=== PATIENT | female | born 1945 | race Caucasian/White ===

== ENCOUNTER 2017-10-05 00:46 | Inpatient (IN) | payer MEDICARE, OTHER ==
[~2017-10-05] VITALS: Ht 165.1 cm; Wt 72.6 kg
[~2017-10-05 00:46] MED LIST: [UNRECOGNIZED DRUG - CODE] PO
[2017-10-05 01:00] VITALS: BP 119/88
--- NOTE | 2017-10-05 01:00 | NUR ---
GPS ADMISSION NOTE, RECEIVED PATIENT FROM [facility] HOME. PATIENT ARRIVED ON THIS UNIT AT 0100 VIA STRETCHER WITH 2 EMT ESCORTS. PATIENT ADMITTED ON A 5150 HOLD FOR DTS. PER HOLD OFFICERS RESPONDED TO CALL AT A HOTEL. ONCE THEIR OFFICERS FOUND BOTH PATIENT AND FEELING SUICIDAL AND THINKING ABOUT JUMPING TO THEIR DEATHS. PATIENT UNABLE TO CONTRACT FOR SAFETY AT THIS TIME. THE 5150 WAS REVIEWED AND THE DOCUMENTATION IN THE 5150 HOLD APPEARS TO REFLECT THE PRESENTATION OF THE PATIENT. UPON FACE TO FACE ASSESSMENT PATIENT IS CURRENTLY LYING IN BED AWAKE, HAS NO S/S OR COMPLAINTS OF PAIN. PATIENT IS DISPLAYING NO S/S OF APPARENT DISTRESS. PATIENT BREATHING IS UNLABORED WITH EQUAL RISE AND FALL OF THE CHEST. PATIENT IS ALERT AND ORIENTATED X 2 ON ROOM AIR. PATIENT ASSISTED WITH TURING AND REPOSITIONING Q2HR AND PRN FOR COMFORT AND CIRCULATION. PATIENT HAS NO NEEDS AT THIS TIME. PATIENT IS NOTED TO BEING CONFUSED AT TIMES, ANXIOUS, DISHEVELED, DISORGANIZED, COOPERATIVE, AND NEEDS REDIRECTION. PATIENT STILL HAS THOUGHTS OF JUMPING OFF BUILDINGS AT THIS TIME. PATIENT IS UNDER THE PSYCHIATRIC CARE OF DR. DHILLON AND THE MEDICAL CARE OF DR VILLAREAL. PATIENT BELONGINGS WERE INVENTORIED AND CHECKED FOR CONTRABAND. ALL CONTRABAND REMOVED AND STORED IN PATIENT HALLWAY LOCKER. PATIENT ADVANCED DIRECTIVES PREFERENCE, IMMUNIZATIONS QUESTIONER, NECESSARY PAPERWORK, AND SKIN ASSESSMENT COMPLETED. PATIENT ORIENTATED TO ROOM, FLOOR, AND STAFF WITH ALL QUESTIONS ANSWERED. PATIENT EDUCATED ON THE USE OF THE CALL PERRY. PATIENT BED SIDE RAILS ARE UP X 2 FOR SAFETY. PATIENT BED IS LOCKED, LOW AND I WILL CONTINUE TO MONITOR THIS PATIENT Q 15 MIN WITH THE HELP OF STAFF TO MAINTAIN SAFETY.
[2017-10-05] MEDS ORDERED: ACETAMINOPHEN 325 MG TABLET PO PRN (01:30)
[2017-10-05] MEDS ORDERED: MAG HYDROX/AL HYDROX/SIMETH 30 ML UDC PO PRN (01:30)
[2017-10-05] MEDS ORDERED: MAGNESIUM HYDROXIDE 30 ML UDC PO PRN (01:30)
[2017-10-05] MEDS ORDERED: clonazePAM 0.5 MG TABLET ONE (01:51)
[2017-10-05] MEDS: clonazePAM 0.5 MG TABLET PO PRN ×4 (01:54→23:41)
--- NOTE | 2017-10-05 01:55 | NUR ---
GPS RN NOTE, PATIENT IS ANXIOUS AND REQUESTING KLONOPIN AT THIS TIME. PATIENT VITAL SIGNS ARE STABLE. GAVE KLONOPIN 0.5 MG PO Q6HR PRN ORDERED. WILL REASSESS FOR ANXIETY AND I WILL CONTINUE TO MONITOR THIS PATIENT.
[2017-10-05] MEDS ORDERED: AMLO2.5T PO (02:52)
[2017-10-05] MEDS ORDERED: FURO20TA4 PO (02:52)
[2017-10-05] MEDS ORDERED: NYST15CR TP (02:52)
[2017-10-05] MEDS ORDERED: ASPI-1152 PO (02:53)
[2017-10-05] MEDS ORDERED: ALBU8.5H8 INH (02:53)
[2017-10-05] MEDS ORDERED: CHOL20004 PO (02:54)
[2017-10-05] MEDS ORDERED: ATOR20TA PO (02:54)
[2017-10-05] MEDS ORDERED: SERT25TA PO (02:54)
[2017-10-05] MEDS ORDERED: QUET100T PO (02:55)
[2017-10-05] MEDS ORDERED: HYDR-552 PO (02:56)
[2017-10-05] MEDS ORDERED: CIPR500T5 PO (03:02)
[2017-10-05] MEDS ORDERED: METR500T4 PO (03:03)
[2017-10-05 08:00] VITALS: BP 112/77
[2017-10-05 08:12] LABS: ALBUMIN 3.4 g/dL (3.4-5.0); BILIRUBIN,TOTAL 0.5 mg/dL (0.2-1.0); CREATININE 0.6 mg/dL (0.6-1.3); POTASSIUM 4.3 mmol/L (3.5-5.1); TOTAL PROTEIN, SERUM 6.9 g/dL (6.4-8.2)
[2017-10-05] MEDS: NICOTINE PATCH (14MG) 14 MG PATCH.TD24 TD SCH (08:37)
--- NOTE | 2017-10-05 08:53 | NUR ---
[id number]: GAVE KLONOPIN 0.5 MG PO DUE TO SEVERE ANXIETY UPON PT REQUEST AND WILL CONTINUE TO MONITOR FOR EFFECTIVENESS OF MEDICATION
[2017-10-05] MEDS ORDERED: ALBUTEROL SULFATE 8 GM HFA.AER.AD IH PRN (11:00)
--- NOTE | 2017-10-05 11:00 | NUR ---
[id number]: NOTIFIED INFECTION CONTROL PT HAVING SCABIES AND THE EVENING SHIFT FROM CABLE APPLIED ELIMITE CREAM AT 2 PM PN 10/04/17. INFECTION ORDERED FOR PT TO CONTINUE TO BE ON CONTACT PRECAUTION.
[2017-10-05] MEDS ORDERED: ALBUTEROL FS 2.5 MG/3 ML VIAL.NEB NEB PRN (11:30)
[2017-10-05] MEDS: HYDROCODONE/APAP 5/325MG 1 EACH TABLET PO PRN ×2 (14:42→22:30)
--- NOTE | 2017-10-05 14:42 | NUR ---
[id number]: GAVE NORCO 5/325 MG PO DUE TO GENERALIZED PAIN 06/03 UPON PT REQUEST AND WILL CONTINUE TO MONITOR FOR EFFECTIVENESS OF MEDICATION
--- NOTE | 2017-10-05 15:25 | NUR ---
[id number]: NOTIFIED DR. SCOTT ABOUT PT BEING POSITIVE FOR SCABIES AND HAVING ELIMITE CREAM FROM [facility] YESTERDAY ON 10/04/17. DR. SCOTT STATED, "ELIMITE CREAM IS ONLY DONE ONCE A WEEK." ALSO CALLED NAMED ISHMAEL AT [phone]. STAFF INFORMED THAT PT LEFT THE FACILITY ABOUT A YEAR AGO AND HAS NO INFORMATION OF [facility].
[2017-10-05 16:00] VITALS: BP 101/69
[2017-10-05] MEDS: SERTRALINE HCL 25 MG TABLET PO SCH (16:41)
[2017-10-05] MEDS: CIPROFLOXACIN HCL 500 MG TABLET PO SCH (16:41)
[2017-10-05] MEDS: METRONIDAZOLE 500 MG TABLET PO SCH (16:41)
[2017-10-05] MEDS: NYSTATIN CREAM 15 GM TUBE TP SCH (16:46)
[2017-10-05] MEDS: QUETIAPINE FUMARATE 100 MG TABLET PO SCH (17:33)
[2017-10-05 20:15] VITALS: BP 99/52
[2017-10-05 22:33] VITALS: BP 118/73
[2017-10-05 23:55] VITALS: BP 105/61
[2017-10-06] MEDS: TEMAZEPAM 7.5 MG CAPSULE PO PRN ×2 (01:13→23:30)
[2017-10-06 07:52] LABS: CHOLESTEROL 169 mg/dL (<200); HDL CHOLESTEROL 54 mg/dL (40-60); LDL 90 mg/dL (0-99); TRIGLYCERIDES 136 mg/dL (30-150)
[2017-10-06 08:00] VITALS: BP 100/66
[2017-10-06] MEDS: FUROSEMIDE 20 MG TABLET PO SCH (09:00)
[2017-10-06] MEDS: AMLODIPINE BESYLATE 2.5 MG TABLET PO SCH (09:00)
[2017-10-06] MEDS: METRONIDAZOLE 500 MG TABLET PO SCH ×2 (09:21→17:18)
[2017-10-06] MEDS: NICOTINE PATCH (14MG) 14 MG PATCH.TD24 TD SCH (09:21)
[2017-10-06] MEDS: CIPROFLOXACIN HCL 500 MG TABLET PO SCH ×2 (09:21→17:18)
[2017-10-06] MEDS: ASPIRIN EC 81 MG TABLET.DR PO SCH (09:22)
[2017-10-06] MEDS: SERTRALINE HCL 25 MG TABLET PO SCH (09:22)
[2017-10-06] MEDS: predniSONE 20 MG TABLET PO SCH (09:22)
[2017-10-06] MEDS: ATORVASTATIN 10 MG TABLET PO SCH (09:22)
[2017-10-06] MEDS: clonazePAM 0.5 MG TABLET PO PRN ×3 (09:33→22:19)
--- NOTE | 2017-10-06 09:34 | NUR ---
GPS/RN-NOTES PATIENT STATED" I NEED MY KLONOPIN I'M VERY ANXIOUS,I NEED TO CALM ME DOWN". KLONOPIN 0.5MG P.O GIVEN PRN ORDER. WILL CONT.MONITORING FOR SAFETY AND BEHAVIOR.
[2017-10-06] MEDS: NYSTATIN CREAM 15 GM TUBE TP SCH ×2 (09:44→17:24)
[2017-10-06] MEDS: HYDROCODONE/APAP 5/325MG 1 EACH TABLET PO PRN ×2 (10:47→17:37)
--- NOTE | 2017-10-06 10:47 | NUR ---
GPS/RN-NOTES PATIENT REQUESTING NORCO FOR HER 07/04 RIGHT HIP PAIN. NORCO 5MG/325MG 1 TAB. P.O GIVEN PRN ORDER. WILL CONT. MONITORING FOR SAFETY AND BEHAVIOR.
--- NOTE | 2017-10-06 14:20 | NUR ---
SW contacted pts , Robert Robledo (emergency bridge repair crew person found on face sheet) for discharge planning purposes. Person who answered the phone stated telephone # was to the [facility] and that Robert Robledo has not been at the facility for 1 yr. SW will continue to follow up to ensure pt is properly and safely discharged.
--- NOTE | 2017-10-06 15:44 | NUR ---
GPS/RN-NOTES PATIENT IN THE NURSE STATION CRYING AND REQUESTING FOR KLONOPIN. REDIRECTED PATIENT AND KLONOPIN 0.5MG P.O GIVEN PRN ORDER. WILL CONT.MONITORING FOR SAFETY AND BEHAVIOR.
[2017-10-06 16:00] VITALS: BP 132/64
[2017-10-06] MEDS: QUETIAPINE FUMARATE 100 MG TABLET PO SCH (17:18)
--- NOTE | 2017-10-06 17:38 | NUR ---
GPS/RN-NOTES PATIENT REQUESTING NORCO FOR HER 04/03 RIGHT FOOT. NORCO 5MG/325MG 1 TAB. P.O GIVEN PRN ORDER. WILL CONT. MONITORING FOR SAFETY AND BEHAVIOR.
--- NOTE | 2017-10-06 19:30 | NUR ---
GPS RN NOTE, RECEIVED PATIENT AWAKE AND IN BED NO S/S OR COMPLAINTS OF PAIN AT THIS TIME. PATIENT IS DISPLAYING NO S/S OF APPARENT DISTRESS AT THIS TIME. PATIENT BREATHING IS UNLABORED WITH EQUAL RISE AND FALL OF THE CHEST. PATIENT IS ALERT AND ORIENTED X 1 ON ROOM AIR WITH A SPOO2 94%. PATIENT IS MED COMPLIANT, DISORGANIZED, ISOLATIVE, AND NEEDS REORIENTATION. PATIENT DENIES SUICIDE IDEATIONS AND HOMICIDAL IDEATIONS AT THIS TIME. PATIENT ASSISTED WITH TURNING AND REPOSITIONING Q2HR AND PRN FOR COMFORT AND CIRCULATION. PATIENT HAS NO NEEDS AT THIS TIME. PATIENT EDUCATED ON THE USE OF THE CALL PERRY. PATIENT BED SIDE RAILS UP X 2 FOR SAFETY. PATIENT BED IS LOCKED AND LOW WILL CONTINUE TO MONITOR AND MAINTAIN SAFETY Q15 MIN WITH THE HELP OF STAFF.
[2017-10-06 20:10] VITALS: BP 103/78
--- NOTE | 2017-10-06 22:19 | NUR ---
GPS RN NOTE, PATIENT HAS A COMPLAINT OF FEELING ANXIOUS AND IS REQUESTING KLONOPIN AT THIS TIME. PATIENT VITAL SIGNS ARE STABLE. GAVE KLONOPIN 0.5MG PO Q6HR PRN ORDERED. WILL REASSESS FOR ANXIETY AND I WILL CONTINUE TO MONITOR THIS PATIENT.
--- NOTE | 2017-10-06 22:35 | NUR ---
GPS RN NOTE, PATIENT HAS A COMPLAINT OF PRURITUS ALL OVER HER BODY AT THIS TIME BUT HAS NO DIFFICULTLY SWALLOWING. PAGED [facility] AND INFORMED ADELAIDE BALDWIN OF MY FINDINGS. ADELAIDE BALDWIN ORDERED BENADRYL 25MG PO ONCE. ALL ORDERS NOTED AND CARRIED OUT WILL CONTINUE TO MONITOR THIS PATIENT.
[2017-10-06] MEDS ORDERED: diphenhydrAMINE HCL 25 MG CAPSULE ONE (22:40)
[2017-10-06] MEDS ORDERED: diphenhydrAMINE HCL ELIX 25 MG/10 ML UDC PO ONE (23:00)
[2017-10-06] MEDS ORDERED: diphenhydrAMINE HCL 25 MG CAPSULE PO ONE (23:00)
--- NOTE | 2017-10-06 23:30 | NUR ---
GPS RN NOTE, PATIENT HAS A COMPLAINT OF NOT BEING ABLE TO SLEEP AND IS REQUESTING RESTORIL AT THIS TIME. PATIENT VITAL SIGNS ARE STABLE. GAVE RESTORIL 7.5 MG PO HS ORDERED. WILL REASSESS FOR INSOMNIA AND I WILL CONTINUE TO MONITOR THIS PATIENT.
[2017-10-07] MEDS: HYDROCODONE/APAP 5/325MG 1 EACH TABLET PO PRN ×3 (02:30→16:23)
--- NOTE | 2017-10-07 02:30 | NUR ---
GPS RN NOTE, PATIENT HAS A COMPLAINT OF CHRONIC RIGHT HIP PAIN AT 5 OUT 10 ON THE PAIN SCALE AND IS REQUEST NORCO AT THIS TIME. PATIENT VITAL SIGNS ARE STABLE. GAVE NORCO 5-325 1 TAB PO Q6HR PRN ORDERED. WILL REASSESS PAIN AND I WILL CONTINUE TO MONITOR THIS PATIENT.
[2017-10-07] MEDS: clonazePAM 0.5 MG TABLET PO PRN ×3 (07:02→19:54)
[2017-10-07 08:39] VITALS: BP 100/65
[2017-10-07] MEDS: SERTRALINE HCL 25 MG TABLET PO SCH (08:56)
[2017-10-07] MEDS: ATORVASTATIN 10 MG TABLET PO SCH (08:57)
[2017-10-07] MEDS: METRONIDAZOLE 500 MG TABLET PO SCH ×2 (08:58→16:23)
[2017-10-07] MEDS: FUROSEMIDE 20 MG TABLET PO SCH (08:58)
[2017-10-07] MEDS: CIPROFLOXACIN HCL 500 MG TABLET PO SCH ×2 (08:58→16:23)
[2017-10-07] MEDS: AMLODIPINE BESYLATE 2.5 MG TABLET PO SCH (08:58)
[2017-10-07] MEDS: predniSONE 20 MG TABLET PO SCH (08:58)
[2017-10-07] MEDS: NICOTINE PATCH (14MG) 14 MG PATCH.TD24 TD SCH (08:59)
--- NOTE | 2017-10-07 08:59 | NUR ---
GPS/RN PATIENT REPORTS 8/10 GENERALIZED PAIN, REQUESTED NORCO, ADMINISTERED NORCO 5/325 PO 1 TAB, WILL CONTINUE TO MONITOR.
[2017-10-07] MEDS: ASPIRIN EC 81 MG TABLET.DR PO SCH (09:00)
[2017-10-07] MEDS: NYSTATIN CREAM 15 GM TUBE TP SCH ×2 (11:35→18:01)
--- NOTE | 2017-10-07 13:10 | NUR ---
GPS/RN PATIENT STATED SHE WAS ANXIOUS, AND REQUESTED PRN, ADMINISTERED KLONOPIN 0.5 MG ORDERED, WILL CONTINUE TO MONITOR.
--- NOTE | 2017-10-07 13:45 | NUR ---
GPS/RN DR SCOTT CONTACTED REGARDING PATIENT REQUEST FOR BENADRYL FOR ITCHING, AWAITING CALL BACK.
[2017-10-07 15:31] VITALS: BP 109/54
[2017-10-07] MEDS ORDERED: QUETIAPINE FUMARATE 100 MG TABLET PO SCH (18:00)
[2017-10-07 20:00] VITALS: BP 106/65
[2017-10-07] MEDS: TEMAZEPAM 7.5 MG CAPSULE PO PRN (21:06)
--- NOTE | 2017-10-07 22:50 | NUR ---
PT C/O ITCHINESS ALL OVER HER BODY , PLACED A CALL TO [employer]AN[employer] BOOT AND SHOE REPAIRMAN RECEIVED AN ORDER FOR BENADRYL 25 MG PO X 1 ONLY, NOTED AND CARRIED OUT.
[2017-10-08] MEDS ORDERED: diphenhydrAMINE HCL 25 MG CAPSULE PO ONE
[2017-10-08] MEDS ORDERED: diphenhydrAMINE HCL 25 MG CAPSULE ONE (00:06)
[2017-10-08] MEDS: clonazePAM 0.5 MG TABLET PO PRN ×3 (04:11→16:30)
[2017-10-08] MEDS: HYDROCODONE/APAP 5/325MG 1 EACH TABLET PO PRN ×3 (04:34→18:32)
[2017-10-08 08:00] VITALS: BP 118/74
[2017-10-08] MEDS: SERTRALINE HCL 25 MG TABLET PO SCH (08:48)
[2017-10-08] MEDS: ASPIRIN EC 81 MG TABLET.DR PO SCH (08:48)
[2017-10-08] MEDS: NICOTINE PATCH (14MG) 14 MG PATCH.TD24 TD SCH (08:48)
[2017-10-08] MEDS: METRONIDAZOLE 500 MG TABLET PO SCH ×2 (08:48→16:30)
[2017-10-08] MEDS: CIPROFLOXACIN HCL 500 MG TABLET PO SCH ×2 (08:48→16:30)
[2017-10-08] MEDS: FUROSEMIDE 20 MG TABLET PO SCH (08:48)
[2017-10-08] MEDS: ATORVASTATIN 10 MG TABLET PO SCH (08:48)
[2017-10-08] MEDS: predniSONE 20 MG TABLET PO SCH (08:49)
[2017-10-08] MEDS: AMLODIPINE BESYLATE 2.5 MG TABLET PO SCH (08:49)
[2017-10-08] MEDS: NYSTATIN CREAM 15 GM TUBE TP SCH ×2 (08:50→16:37)
[2017-10-08] MEDS ORDERED: QUETIAPINE FUMARATE 25 MG TABLET PO SCH (09:00)
--- NOTE | 2017-10-08 10:13 | NUR ---
Discharge Planning: SW contacted [facility], in order to inquire about pts 's whereabouts. Pt has been feeling extremely anxious and worried since her arrival due to not knowing where her was taken (after being admitted to the ER in the [facility]). SW was transferred to the Database Admin Dept, however was unable to speak to anyone. SW left a message asking for a call back. SW will continue to follow up.
--- NOTE | 2017-10-08 11:13 | NUR ---
Initial Discharge Plan: Pt is currently homeless. Prior to hospitalization, pt reports staying at [id number] [facility] (a hotel) with her . Pt reports leaving an assisted living facility, [facility] on September 29 2017. Pts contact # is [phone],which is to the [facility]. Pt would like to return to "a safe" assisted living facility with her . SW attempted to contact pts emergency contact, Kathi and left a message. SW also attempted to locate by contacting [facility] . SW was transferred to Template Clerk Dept. and a message was left asking for a call back. SW will continue to follow up to ensure pt is properly and safely discharged.
[2017-10-08] MEDS: QUETIAPINE FUMARATE 25 MG TABLET PO SCH (12:52)
[2017-10-08] MEDS: diphenhydrAMINE HCL 25 MG CAPSULE PO PRN ×2 (15:11→21:33)
[2017-10-08 16:00] VITALS: BP 120/68
[2017-10-08] MEDS: QUETIAPINE FUMARATE 100 MG TABLET PO SCH (17:03)
[2017-10-08 20:00] VITALS: BP 110/62
[2017-10-08] MEDS: TEMAZEPAM 7.5 MG CAPSULE PO PRN (21:33)
[2017-10-09] MEDS: clonazePAM 0.5 MG TABLET PO PRN ×3 (01:01→15:58)
[2017-10-09] MEDS: HYDROCODONE/APAP 5/325MG 1 EACH TABLET PO PRN ×2 (01:01→12:44)
[2017-10-09] MEDS: diphenhydrAMINE HCL 25 MG CAPSULE PO PRN ×2 (03:10→17:11)
[2017-10-09 08:00] VITALS: BP 109/65
[2017-10-09] MEDS: FUROSEMIDE 20 MG TABLET PO SCH (09:00)
[2017-10-09] MEDS: AMLODIPINE BESYLATE 2.5 MG TABLET PO SCH (09:00)
[2017-10-09] MEDS: CIPROFLOXACIN HCL 500 MG TABLET PO SCH ×2 (09:51→17:10)
[2017-10-09] MEDS: QUETIAPINE FUMARATE 25 MG TABLET PO SCH ×2 (09:51→12:43)
[2017-10-09] MEDS: ATORVASTATIN 10 MG TABLET PO SCH (09:51)
[2017-10-09] MEDS: SERTRALINE HCL 25 MG TABLET PO SCH (09:51)
[2017-10-09] MEDS: METRONIDAZOLE 500 MG TABLET PO SCH ×2 (09:52→17:10)
[2017-10-09] MEDS: predniSONE 20 MG TABLET PO SCH (09:52)
[2017-10-09] MEDS: NICOTINE PATCH (14MG) 14 MG PATCH.TD24 TD SCH (09:54)
[2017-10-09] MEDS: NYSTATIN CREAM 15 GM TUBE TP SCH ×2 (09:55→17:11)
[2017-10-09] MEDS: ASPIRIN EC 81 MG TABLET.DR PO SCH (09:55)
--- NOTE | 2017-10-09 10:02 | NUR ---
GPS/RN-NOTES PATIENT REQUESTING FOR HER KLONOPIN FOR ANXIETY. KLONOPIN 0.5MG P.O GIVEN PRN ORDER. WILL CONT. MONITORING FOR SAFETY AND BEHAVIOR.
--- NOTE | 2017-10-09 12:50 | NUR ---
GPS/RN-NOTES PATIENT REQUESTING NORCO FOR HER 04/03 LEFT FOOT. NORCO 5MG/325MG 1 TAB. P.O GIVEN PRN ORDER. WILL CONT. MONITORING FOR SAFETY .
[2017-10-09 16:00] VITALS: BP 106/60
[2017-10-09] MEDS: QUETIAPINE FUMARATE 100 MG TABLET PO SCH (17:10)
--- NOTE | 2017-10-09 17:18 | NUR ---
GPS/RN-NOTES PATIENT REQUESTING BENADRYL FOR GENERALIZED BODY ITCH. BENADRYL 25MG O.O GIVEN PRN ORDER. WILL CONT. MONITORING.
[2017-10-09 20:00] VITALS: BP 124/76
[2017-10-09] MEDS: TEMAZEPAM 7.5 MG CAPSULE PO PRN (21:48)
[2017-10-10] MEDS: diphenhydrAMINE HCL 25 MG CAPSULE PO PRN ×3 (03:58→18:39)
[2017-10-10] MEDS: clonazePAM 0.5 MG TABLET PO PRN ×4 (03:58→23:46)
[2017-10-10] MEDS: HYDROCODONE/APAP 5/325MG 1 EACH TABLET PO PRN ×3 (06:59→20:05)
[2017-10-10 08:00] VITALS: BP 118/78
[2017-10-10] MEDS: SERTRALINE HCL 25 MG TABLET PO SCH (08:52)
[2017-10-10] MEDS: QUETIAPINE FUMARATE 25 MG TABLET PO SCH ×3 (08:52→16:45)
[2017-10-10] MEDS: ATORVASTATIN 10 MG TABLET PO SCH (08:52)
[2017-10-10] MEDS: NICOTINE PATCH (14MG) 14 MG PATCH.TD24 TD SCH (08:52)
[2017-10-10] MEDS: CIPROFLOXACIN HCL 500 MG TABLET PO SCH ×2 (08:52→16:45)
[2017-10-10] MEDS: ASPIRIN EC 81 MG TABLET.DR PO SCH (08:52)
[2017-10-10] MEDS: FUROSEMIDE 20 MG TABLET PO SCH (08:52)
[2017-10-10] MEDS: METRONIDAZOLE 500 MG TABLET PO SCH ×2 (08:53→16:45)
[2017-10-10] MEDS: predniSONE 20 MG TABLET PO SCH (08:53)
[2017-10-10] MEDS: AMLODIPINE BESYLATE 2.5 MG TABLET PO SCH (08:53)
[2017-10-10] MEDS: NYSTATIN CREAM 15 GM TUBE TP SCH ×2 (09:03→17:34)
--- NOTE | 2017-10-10 10:27 | NUR ---
[id number]: GAVE KLONOPIN 0.5 MG PO DUE TO SEVERE ANXIETY UPON PT REQUEST AND WILL CONTINUE TO MONITOR FOR EFFECTIVENESS OF MEDICATION
--- NOTE | 2017-10-10 11:12 | NUR ---
[id number]: GAVE BENADRYL 25 MG PO DUE TO ITCHINESS UPON PT REQUEST AND WILL CONTINUE TO MONITOR FOR EFFECTIVENESS OF MEDICATION.
--- NOTE | 2017-10-10 13:42 | NUR ---
[id number]: GAVE NORCO 5/325 MG PO DUE TO GENERALIZED PAIN 06/03 UPON PT REQUEST AND WILL CONTINUE TO MONITOR FOR EFFECTIVENESS OF MEDICATION
[2017-10-10 16:00] VITALS: BP 99/64
--- NOTE | 2017-10-10 16:45 | NUR ---
[id number]: GAVE KLONOPIN 0.5 MG PO DUE TO SEVERE ANXIETY UPON PT REQUEST AND WILL CONTINUE TO MONITOR FOR EFFECTIVENESS OF MEDICATION
[2017-10-10] MEDS ORDERED: QUETIAPINE FUMARATE 100 MG TABLET PO SCH (18:00)
--- NOTE | 2017-10-10 18:39 | NUR ---
[id number]: GAVE BENADRYL 25 MG PO DUE TO ITCHINESS UPON PT REQUEST AND WILL CONTINUE TO MONITOR FOR EFFECTIVENESS OF MEDICATION
--- NOTE | 2017-10-10 20:05 | NUR ---
RN NOTES PATIENT NOTED WITH MED SEEKING BEHAVIOR, ASKING "WHAT MEDICATION CAN YOU GIVE ME RIGHT NOW? WHAT'S DUE, I'LL TAKE ANYTHING." UPON FURTHER ASSESSMENT, PATIENT STATES "I HAVE GENERALIZED PAIN, I NEED NORCO." NORCO ADMINISTERED PRESCRIBED. WILL CONTINUE TO CLOSELY MONITOR.
[2017-10-10 20:13] VITALS: BP 107/71
[2017-10-10] MEDS: QUETIAPINE FUMARATE 100 MG TABLET PO SCH (21:13)
[2017-10-10] MEDS: TEMAZEPAM 7.5 MG CAPSULE PO PRN (21:15)
--- NOTE | 2017-10-10 21:15 | NUR ---
RN NOTES PATIENT AGAIN ASKING FOR PRN MEDICATION, STATING THIS TIME "I CANT SLEEP. CAN I HAVE NORCO AGAIN?" PATIENT TEACHING RENDERED REGARDING MEDICATION ADMINISTRATION SCHEDULE TIMES WITH VERBALIZATION OF UNDERSTANDING, BUT REINFORCEMENT STILL NEEDED. WILL REINFORCE PRN. RESTORIL PRN ADMINISTERED PER PATIENT REQUEST.
--- NOTE | 2017-10-10 23:46 | NUR ---
RN NOTES PATIENT STATES "IM SO ANXIOUS I CANT SLEEP. IS IT TIME FOR MY MEDICATION YET?" KLONOPIN ADMINISTERED PRESCRIBED.
--- NOTE | 2017-10-11 | NUR ---
RN NOTES PATIENT MADE AWARE THAT PHOTOGRAPHS OF SKIN CONDITIONS ARE TO BE DOCUMENTED PER PROTOCOL. PATIENT VERBALIZES UNDERSTANDING AND SHOWS HER RASHES, BUT REFUSES TO ALLOW PHOTOGRAPHS TO BE TAKEN, STATING "MY SKIN IS SO ITCHY, THERE'S NO TIME FOR THAT RIGHT NOW." ATTEMPTED TO REORIENT THE PATIENT AND REINFORCE TEACHING, BUT PATIENT UNABLE TO COMPREHEND AND STILL STRONGLY REFUSING PHOTOGRAPHS TO BE TAKEN
[2017-10-11 08:26] VITALS: BP 107/65
[2017-10-11] MEDS: QUETIAPINE FUMARATE 25 MG TABLET PO SCH ×3 (08:49→16:12)
[2017-10-11] MEDS: NICOTINE PATCH (14MG) 14 MG PATCH.TD24 TD SCH (08:49)
[2017-10-11] MEDS: ASPIRIN EC 81 MG TABLET.DR PO SCH (08:50)
[2017-10-11] MEDS: ATORVASTATIN 10 MG TABLET PO SCH (08:50)
[2017-10-11] MEDS: AMLODIPINE BESYLATE 2.5 MG TABLET PO SCH (08:50)
[2017-10-11] MEDS: METRONIDAZOLE 500 MG TABLET PO SCH ×2 (08:50→16:12)
[2017-10-11] MEDS: predniSONE 20 MG TABLET PO SCH (08:50)
[2017-10-11] MEDS: SERTRALINE HCL 25 MG TABLET PO SCH (08:50)
[2017-10-11] MEDS: CIPROFLOXACIN HCL 500 MG TABLET PO SCH ×2 (08:50→16:12)
[2017-10-11] MEDS: FUROSEMIDE 20 MG TABLET PO SCH (08:50)
[2017-10-11] MEDS: clonazePAM 0.5 MG TABLET PO PRN ×3 (09:55→23:32)
[2017-10-11] MEDS: NYSTATIN CREAM 15 GM TUBE TP SCH ×2 (09:55→17:26)
--- NOTE | 2017-10-11 10:00 | NUR ---
GPS/RN-NOTES NOTED PATIENT CRYING AND REQUESTING FOR KLONOPIN. KLONOPIN 0.5MG P.O GIVEN PRN ORDER. WILL CONT. MONITORING FOR SAFETY AND BEHAVIOR.
[2017-10-11] MEDS: HYDROCODONE/APAP 5/325MG 1 EACH TABLET PO PRN ×2 (11:02→19:39)
--- NOTE | 2017-10-11 11:03 | NUR ---
GPS/RN-NOTES PATIENT REQUESTING NORCO FOR HER 06/03 LEFT FOOT. NORCO 5MG/325MG 1 TAB. P.O GIVEN PRN ORDER. WILL CONT. MONITORING FOR SAFETY .
--- NOTE | 2017-10-11 12:41 | NUR ---
Discharge Planning: SW spoke to pt in order to discuss placement options upon her discharge. Pt is requesting to be placed in an Assisted living facility or a board and care once she is stable. Pt does not want to remain homeless. Pt is requesting for a facility that would accept she and her , upon his discharge. SW will coordinate with other professionals (i.e. 's SW) when planning pts discharge. Pt would like to be reunited with her upon discharge. SW will continue to follow up to ensure pt is properly and safely discharged.
[2017-10-11] MEDS: diphenhydrAMINE HCL 25 MG CAPSULE PO PRN ×2 (13:02→19:39)
--- NOTE | 2017-10-11 13:48 | NUR ---
Discharge Planning: SHIKHA spoke to Abel, Firepot Operator And Tender to discuss possible placement (i.e. in an assisted living and or board and care) for pt upon her discharge). SW discussed pts current living situation in relation to her to identify placement (for both of them) upon discharge. SHIKHA will fax inquiry (face sheet, H& P and med list) to to Abel for discharge planning purposes. SHIKHA will continue to follow up. SHIKHA will ensure pt is properly and safely discharged.
--- NOTE | 2017-10-11 13:59 | NUR ---
Discharge Planning: SHIKHA contacted Pura Beckman SHIKHA from [facility] in [place] for discharge planning purposes. Ms. Beckman is SW for Robert Robledo, pts . SHIKHA discussed coordinating pt and husbands discharge in order to so that they could be reunited upon discharge. SW gathered pts was stable and ready for discharge (possibly to a homeless custodial). SW discussed obtaining additional information (regarding their finances) in order to identify appropriate placement. SHIKHA will follow up with Ms. Beckman tomorrow at 11am for discharge planning purposes.
[2017-10-11 15:58] VITALS: BP 107/61
--- NOTE | 2017-10-11 16:14 | NUR ---
GPS/RN-NOTES PATIENT REQUESTING FOR KLONOPIN FOR ANXIETY. KLONOPIN 0.5MG P.O GIVEN PRN ORDER. WILL CONT. MONITORING FOR SAFETY AND BEHAVIOR.
--- NOTE | 2017-10-11 19:30 | NUR ---
GPS RN NOTE, RECEIVED PATIENT AWAKE AND IN BED AND HAS A COMPLAINT OF CHRONIC HIP PAIN AT 5 OUT 10 ON THE PAIN SCALE. PATIENT IS TAKING ORAL PAIN MEDICATION FOR THIS PAIN. PATIENT IS DISPLAYING NO S/S OF APPARENT DISTRESS AT THIS TIME. PATIENT BREATHING IS UNLABORED WITH EQUAL RISE AND FALL OF THE CHEST. PATIENT IS ALERT AND ORIENTED X 2 ON ROOM AIR WITH A SPOO2 98%. PATIENT IS COMPLAINT WITH MEDICATION, COOPERATIVE, ANXIOUS AT TIMES, DISORGANIZED, AND NEEDS REORIENTATION. PATIENT DENIES SUICIDE IDEATIONS AND HOMICIDAL IDEATIONS AT THIS TIME. PATIENT ASSISTED WITH TURNING AND REPOSITIONING Q2HR AND PRN FOR COMFORT AND CIRCULATION. PATIENT HAS NO NEEDS AT THIS TIME. PATIENT EDUCATED ON THE USE OF THE CALL PERRY. PATIENT BED SIDE RAILS UP X 2 FOR SAFETY. PATIENT BED IS LOCKED AND LOW WILL CONTINUE TO MONITOR AND MAINTAIN SAFETY Q15 MIN WITH THE HELP OF STAFF.
--- NOTE | 2017-10-11 19:39 | NUR ---
GPS RN NOTE, PATIENT HAS A COMPLAINT OF GENERALIZED PRURITUS AND CHRONIC RIGHT HIP PAIN AT 5 OUT 10 ON THE PAIN SCALE. PATIENT IS REQUESTING NORCO AND BENADRYL AT THIS TIME. PATIENT VITAL SIGNS ARE STABLE. GAVE NORCO 5-325 1 TAB PO Q6HR PRN AND BENADRYL 25MG 1 CAP PO Q6HR PRN ORDERED. WILL REASSESS AND I WILL CONTINUE TO MONITOR THIS PATIENT.
[2017-10-11 19:50] VITALS: BP 124/59
[2017-10-11] MEDS: QUETIAPINE FUMARATE 100 MG TABLET PO SCH (21:30)
[2017-10-11] MEDS: TEMAZEPAM 7.5 MG CAPSULE PO PRN (22:49)
[2017-10-12] MEDS: HYDROCODONE/APAP 5/325MG 1 EACH TABLET PO PRN ×2 (03:58→12:13)
[2017-10-12] MEDS: diphenhydrAMINE HCL 25 MG CAPSULE PO PRN ×2 (03:58→13:36)
--- NOTE | 2017-10-12 03:58 | NUR ---
GPS RN NOTE, PATIENT HAS A COMPLAINT OF GENERALIZED PRURITUS AND CHRONIC RIGHT HIP PAIN AT 6 OUT 10 ON THE PAIN SCALE. PATIENT IS REQUESTING NORCO AND BENADRYL AT THIS TIME. PATIENT VITAL SIGNS ARE STABLE. GAVE NORCO 5-325 1 TAB PO Q6HR PRN AND BENADRYL 25MG 1 CAP PO Q6HR PRN ORDERED. WILL REASSESS AND I WILL CONTINUE TO MONITOR THIS PATIENT.
[2017-10-12 08:19] VITALS: BP 100/63
[2017-10-12] MEDS: AMLODIPINE BESYLATE 2.5 MG TABLET PO SCH (09:00)
[2017-10-12] MEDS: FUROSEMIDE 20 MG TABLET PO SCH (09:00)
[2017-10-12] MEDS: NICOTINE PATCH (14MG) 14 MG PATCH.TD24 TD SCH (09:45)
[2017-10-12] MEDS: SERTRALINE HCL 25 MG TABLET PO SCH (09:45)
[2017-10-12] MEDS: QUETIAPINE FUMARATE 25 MG TABLET PO SCH ×3 (09:45→16:14)
[2017-10-12] MEDS: CIPROFLOXACIN HCL 500 MG TABLET PO SCH ×2 (09:45→16:14)
[2017-10-12] MEDS: METRONIDAZOLE 500 MG TABLET PO SCH ×2 (09:45→16:14)
[2017-10-12] MEDS: ATORVASTATIN 10 MG TABLET PO SCH (09:45)
[2017-10-12] MEDS: ASPIRIN EC 81 MG TABLET.DR PO SCH (09:45)
[2017-10-12] MEDS: predniSONE 20 MG TABLET PO SCH (09:51)
[2017-10-12] MEDS: NYSTATIN CREAM 15 GM TUBE TP SCH ×2 (09:57→17:02)
[2017-10-12] MEDS: clonazePAM 0.5 MG TABLET PO PRN ×2 (10:01→16:14)
--- NOTE | 2017-10-12 10:07 | NUR ---
GPS/RN-NOTES PATIENT REQUESTING FOR KLONOPIN FOR ANXIETY. KLONOPIN 0.5MG P.O GIVEN PRN ORDER. WILL CONT. MONITORING FOR SAFETY AND BEHAVIOR.
--- NOTE | 2017-10-12 12:15 | NUR ---
GPS/RN-NOTES PATIENT REQUESTING NORCO FOR HER 06/03 LEFT FOOT. NORCO 5MG/325MG 1 TAB. P.O GIVEN PRN ORDER. WILL CONT. MONITORING FOR SAFETY .
--- NOTE | 2017-10-12 12:17 | NUR ---
Discharge Planning: SHIKHA contacted Pura Beckman, Awning Erector from [facility] to coordinate discharge plans for pt. and pts . SHIKHA was informed that pts will be discharged from the hospital today or tomorrow to a homeless long term (arranged through the [facility] Department of Mental Health). SHIKHA provided Ms. Beckman with an update regarding pts placement. SHIKHA received an application (via fax) for interim housing in the event pt wanted to join her , if at all possible. SHIKHA asked for a call back once she knew when pts would be discharged as well as the location of the long term. SHIKHA will continue to follow up to ensure pt is properly and safely discharged.
--- NOTE | 2017-10-12 13:37 | NUR ---
GPS/RN-NOTES PATIENT REQUESTING BENADRYL FOR GENERALIZED BODY ITCH. BENADRYL 25MG O.O GIVEN PRN ORDER. WILL CONT. MONITORING.
[2017-10-12 15:53] VITALS: BP 111/59
--- NOTE | 2017-10-12 16:16 | NUR ---
GPS/RN-NOTES PATIENT REQUESTING FOR KLONOPIN FOR ANXIETY. KLONOPIN 1MG P.O GIVEN PRN ORDER. WILL CONT. MONITORING FOR SAFETY AND BEHAVIOR.
[2017-10-12] MEDS: QUETIAPINE FUMARATE 100 MG TABLET PO SCH (21:09)
[2017-10-12 21:10] VITALS: BP 107/66
[2017-10-12] MEDS: TEMAZEPAM 7.5 MG CAPSULE PO PRN (21:40)
[2017-10-13] MEDS: clonazePAM 0.5 MG TABLET PO PRN ×3 (01:01→16:21)
--- NOTE | 2017-10-13 01:03 | NUR ---
GPS/RN-NOTES PATIENT C/O ANXIETY . KLONOPIN 1MG P.O PRN GIVEN PER PT. REQUEST. WILL CONT. MONITORING FOR SAFETY AND BEHAVIOR.
--- NOTE | 2017-10-13 06:13 | NUR ---
GPS RN NOTES PT. RESTING HIS BED DENIES SI /HI AT THIS TIME , NO ACUTE DISTRESS NOTED , ALL NEEDS ATTENDED AND ANTICIPATED , ENDORSE TO NEXT SHIFT FOR CONTINUITY OF CARE .
[2017-10-13 08:00] VITALS: BP 118/68
[2017-10-13] MEDS: QUETIAPINE FUMARATE 25 MG TABLET PO SCH ×3 (08:44→16:21)
[2017-10-13] MEDS: AMLODIPINE BESYLATE 2.5 MG TABLET PO SCH (08:45)
[2017-10-13] MEDS: SERTRALINE HCL 25 MG TABLET PO SCH (08:45)
[2017-10-13] MEDS: METRONIDAZOLE 500 MG TABLET PO SCH ×2 (08:45→16:21)
[2017-10-13] MEDS: CIPROFLOXACIN HCL 500 MG TABLET PO SCH ×2 (08:45→16:21)
[2017-10-13] MEDS: FUROSEMIDE 20 MG TABLET PO SCH (08:45)
[2017-10-13] MEDS: ATORVASTATIN 10 MG TABLET PO SCH (08:45)
[2017-10-13] MEDS: ASPIRIN EC 81 MG TABLET.DR PO SCH (08:45)
[2017-10-13] MEDS: NICOTINE PATCH (14MG) 14 MG PATCH.TD24 TD SCH (08:45)
[2017-10-13] MEDS: predniSONE 20 MG TABLET PO SCH (08:45)
[2017-10-13] MEDS: NYSTATIN CREAM 15 GM TUBE TP SCH ×2 (08:46→16:22)
[2017-10-13] MEDS: diphenhydrAMINE HCL 25 MG CAPSULE PO PRN ×2 (11:06→16:21)
[2017-10-13] MEDS: HYDROCODONE/APAP 5/325MG 1 EACH TABLET PO PRN (11:46)
[2017-10-13 16:14] VITALS: BP 105/65
--- NOTE | 2017-10-13 17:37 | NUR ---
Discharge Planning: SHIKHA spoke to Gume Toussaint from [facility], Placement Services for discharge planning purposes. Mr. Toussaint is working with SHIKHA to find appropriate placement for pt and her . Pts will be discharging [place] [facility] [place], per his SW's report (i.e. Pura Beckman [phone]). SHIKHA arranged for Mr. Toussaint to come and assess pt on today's date (at 4:00 pm) to evaluate if she would be appropriate for one of their independent living facilities. SHIKHA informed pt that Mr. Toussaint would be coming on this date for an assessment; which she was in agreement. SHIKHA will follow up to ensure pt is properly and safely discharged.
[2017-10-13 19:56] VITALS: BP 100/59
[2017-10-13] MEDS: QUETIAPINE FUMARATE 100 MG TABLET PO SCH (21:55)
[2017-10-13] MEDS: TEMAZEPAM 7.5 MG CAPSULE PO PRN (22:23)
[2017-10-14] MEDS: clonazePAM 0.5 MG TABLET PO PRN ×3 (04:24→16:31)
[2017-10-14 08:00] VITALS: BP 103/57
[2017-10-14] MEDS: QUETIAPINE FUMARATE 25 MG TABLET PO SCH ×3 (08:29→16:30)
[2017-10-14] MEDS: CIPROFLOXACIN HCL 500 MG TABLET PO SCH ×2 (08:29→16:30)
[2017-10-14] MEDS: FUROSEMIDE 20 MG TABLET PO SCH (08:29)
[2017-10-14] MEDS: ASPIRIN EC 81 MG TABLET.DR PO SCH (08:29)
[2017-10-14] MEDS: METRONIDAZOLE 500 MG TABLET PO SCH ×2 (08:29→16:30)
[2017-10-14] MEDS: NICOTINE PATCH (14MG) 14 MG PATCH.TD24 TD SCH (08:30)
[2017-10-14] MEDS: NYSTATIN CREAM 15 GM TUBE TP SCH ×2 (08:30→16:30)
[2017-10-14] MEDS: predniSONE 20 MG TABLET PO SCH (08:30)
[2017-10-14] MEDS: ATORVASTATIN 10 MG TABLET PO SCH (08:30)
[2017-10-14] MEDS: AMLODIPINE BESYLATE 2.5 MG TABLET PO SCH (08:30)
[2017-10-14] MEDS: SERTRALINE HCL 25 MG TABLET PO SCH (08:30)
[2017-10-14] MEDS: HYDROCODONE/APAP 5/325MG 1 EACH TABLET PO PRN ×2 (08:38→14:38)
[2017-10-14] MEDS: diphenhydrAMINE HCL 25 MG CAPSULE PO PRN ×2 (11:24→18:54)
[2017-10-14 16:00] VITALS: BP 104/56
--- NOTE | 2017-10-14 16:10 | NUR ---
LATE ENTRY Group Note 10/13: S: Patient stated that she was concerned about discharge because she wanted to be where her is [please note that patient's is in a different hospital on hold for danger to self]. Patient was also concerned if her clothes were going to be cleaned because there were bed bugs at the last place she and her stayed at. O: Patient seemed to be in tearful mood, particularly when discussing her . The tearfulness is attributed to a known stressor : being away from her . Patient's insight and judgement seemed to be fair. Patient's interaction style was cooperative and she actively participated in the group. A: Patient seems to have made progress since being admitted to the hospital. Patient's anxiety attacks seem to be less-frequent. Patient is able to discuss the discharge plan without becoming overly overwhelmed. P: SHIKHA Boyle asked BIAS BINDING CUTTER if patient's clothing would be washed and was informed that they would. SHIKHA Boyle informed patient of this and patient seemed to be content. SHIKHA will coordinate with Pura, the SW working on patient's case, to ensure that patient and her will remain in contact and have a similar discharge plan. Social workers will keep patient updated on her 's status, as that seems to be patient's primary stressor.
[2017-10-14 20:00] VITALS: BP 103/68
[2017-10-14] MEDS: QUETIAPINE FUMARATE 100 MG TABLET PO SCH (21:14)
[2017-10-14] MEDS: TEMAZEPAM 7.5 MG CAPSULE PO PRN (21:14)
[2017-10-15] MEDS: clonazePAM 0.5 MG TABLET PO PRN ×3 (01:27→16:46)
[2017-10-15] MEDS: HYDROCODONE/APAP 5/325MG 1 EACH TABLET PO PRN ×2 (05:27→12:48)
[2017-10-15 08:00] VITALS: BP 100/58
[2017-10-15] MEDS: predniSONE 20 MG TABLET PO SCH (08:49)
[2017-10-15] MEDS: SERTRALINE HCL 25 MG TABLET PO SCH (08:49)
[2017-10-15] MEDS: METRONIDAZOLE 500 MG TABLET PO SCH (08:49)
[2017-10-15] MEDS: CIPROFLOXACIN HCL 500 MG TABLET PO SCH (08:49)
[2017-10-15] MEDS: NICOTINE PATCH (14MG) 14 MG PATCH.TD24 TD SCH (08:50)
[2017-10-15] MEDS: QUETIAPINE FUMARATE 25 MG TABLET PO SCH ×3 (08:50→17:20)
[2017-10-15] MEDS: ATORVASTATIN 10 MG TABLET PO SCH (08:50)
[2017-10-15] MEDS: ASPIRIN EC 81 MG TABLET.DR PO SCH (08:50)
[2017-10-15] MEDS: NYSTATIN CREAM 15 GM TUBE TP SCH ×2 (08:53→16:47)
[2017-10-15] MEDS: FUROSEMIDE 20 MG TABLET PO SCH (08:53)
[2017-10-15] MEDS: AMLODIPINE BESYLATE 2.5 MG TABLET PO SCH (08:53)
--- NOTE | 2017-10-15 13:35 | NUR ---
Discharge Planning: SHIKHA contacted Chadd District Sales Manager at [facility], for treatment planning purposes (i.e. pts was discharged to above mentioned homes on 10/14). Telephone # was out of order (i.e. phone wrings a couple of times and then the call ends). SHIKHA contacted SHIKHA Arvizu for pts to follow up on telephone #. SHIKHA left a detailed message asking for a callback. SW will continue to attempt to coordinate with pts 's placement in order maintain the couple together once pt is ready for discharge. SHIKHA will continue to follow up to ensure pt is properly discharged.
[2017-10-15] MEDS: diphenhydrAMINE HCL 25 MG CAPSULE PO PRN (13:44)
[2017-10-15 16:14] VITALS: BP 103/67
[2017-10-15 20:00] VITALS: BP 112/69
[2017-10-15] MEDS: QUETIAPINE FUMARATE 100 MG TABLET PO SCH (21:15)
[2017-10-15] MEDS: TEMAZEPAM 7.5 MG CAPSULE PO PRN (23:25)
[2017-10-16] MEDS: clonazePAM 0.5 MG TABLET PO PRN ×3 (02:51→16:03)
--- NOTE | 2017-10-16 02:56 | NUR ---
GPS/RN-NOTES PATIENT C/O ANXIETY . KLONOPIN 1MG P.O PRN GIVEN PER PT. REQUEST. WILL CONT. MONITORING FOR SAFETY AND BEHAVIOR.
--- NOTE | 2017-10-16 06:21 | NUR ---
GPS RN NOTES PT. RESTING HIS BED DENIES SI /HI AT THIS TIME , NO ACUTE DISTRESS NOTED , ALL NEEDS ATTENDED AND ANTICIPATED , WILL CONTINUITY OF CARE .
[2017-10-16 08:13] VITALS: BP 117/59
[2017-10-16] MEDS: ATORVASTATIN 10 MG TABLET PO SCH (08:13)
[2017-10-16] MEDS: NICOTINE PATCH (14MG) 14 MG PATCH.TD24 TD SCH (08:13)
[2017-10-16] MEDS: predniSONE 20 MG TABLET PO SCH (08:13)
[2017-10-16] MEDS: QUETIAPINE FUMARATE 25 MG TABLET PO SCH ×3 (08:14→16:55)
[2017-10-16] MEDS: AMLODIPINE BESYLATE 2.5 MG TABLET PO SCH (08:14)
[2017-10-16] MEDS: ASPIRIN EC 81 MG TABLET.DR PO SCH (08:14)
[2017-10-16] MEDS: FUROSEMIDE 20 MG TABLET PO SCH (08:15)
[2017-10-16] MEDS: SERTRALINE HCL 25 MG TABLET PO SCH (08:16)
[2017-10-16] MEDS: NYSTATIN CREAM 15 GM TUBE TP SCH ×2 (08:17→16:55)
[2017-10-16] MEDS: HYDROCODONE/APAP 5/325MG 1 EACH TABLET PO PRN ×2 (10:57→20:15)
--- NOTE | 2017-10-16 11:05 | NUR ---
DR. JAMES IN THE UNIT AND ORDERED GUIAFENESIN/CODEINE 5 ML Q6HR PRN FOR COUGH.
[2017-10-16] MEDS: GUAIFENESIN/CODEINE 10 ML UDC PO PRN ×2 (12:45→21:14)
[2017-10-16] MEDS: diphenhydrAMINE HCL 25 MG CAPSULE PO PRN (14:41)
[2017-10-16 16:11] VITALS: BP 100/55
[2017-10-16 20:00] VITALS: BP 115/59
[2017-10-16] MEDS: TEMAZEPAM 7.5 MG CAPSULE PO PRN (20:57)
--- NOTE | 2017-10-16 21:04 | NUR ---
GPS/RN NOTES: PATIENT ALERT AND ORIENTED X3. PATIENT C/O OF COUGH. GUAIFENESIN/CODEINE 5ML PO GIVEN PRN ORDER. WILL CONTINUE TO MONITOR.
[2017-10-16] MEDS: QUETIAPINE FUMARATE 100 MG TABLET PO SCH (21:05)
[2017-10-17] MEDS: clonazePAM 0.5 MG TABLET PO PRN ×3 (02:38→15:57)
[2017-10-17 08:00] VITALS: BP 115/68
[2017-10-17] MEDS: NICOTINE PATCH (14MG) 14 MG PATCH.TD24 TD SCH (08:52)
[2017-10-17] MEDS: ATORVASTATIN 10 MG TABLET PO SCH (08:53)
[2017-10-17] MEDS: FUROSEMIDE 20 MG TABLET PO SCH (08:53)
[2017-10-17] MEDS: ASPIRIN EC 81 MG TABLET.DR PO SCH (08:53)
[2017-10-17] MEDS: predniSONE 20 MG TABLET PO SCH (08:54)
[2017-10-17] MEDS: SERTRALINE HCL 25 MG TABLET PO SCH (08:54)
[2017-10-17] MEDS: AMLODIPINE BESYLATE 2.5 MG TABLET PO SCH (08:54)
[2017-10-17] MEDS: QUETIAPINE FUMARATE 25 MG TABLET PO SCH ×3 (08:54→16:00)
[2017-10-17] MEDS: NYSTATIN CREAM 15 GM TUBE TP SCH ×2 (08:58→16:00)
--- NOTE | 2017-10-17 09:00 | NUR ---
[id number]: GAVE KLONOPIN 1 MG PO DUE TO SEVERE ANXIETY UPON PT REQUEST AND WILL CONTINUE TO MONITOR FOR EFFECTIVENESS OF MEDICATION
[2017-10-17] MEDS: HYDROCODONE/APAP 5/325MG 1 EACH TABLET PO PRN ×2 (10:09→17:00)
--- NOTE | 2017-10-17 10:09 | NUR ---
[id number]: GAVE NORCO 5/325 MG PO DUE TO GENERALIZE PAIN 06/03 UPON PT REQUEST AND WILL CONTINUE TO MONITOR FOR EFFECTIVENESS OF MEDICATION
[2017-10-17] MEDS: diphenhydrAMINE HCL 25 MG CAPSULE PO PRN ×2 (11:44→20:33)
--- NOTE | 2017-10-17 11:44 | NUR ---
[id number]-UB-[id number]: GAVE BENADRYL 25 MG PO DUE TO ITCHINESS UPON PT REQUEST AND WILL CONTINUE TO MONITOR FOR EFFECTIVENESS OF MEDICATION
[2017-10-17] MEDS: GUAIFENESIN/CODEINE 10 ML UDC PO PRN (13:59)
--- NOTE | 2017-10-17 13:59 | NUR ---
[id number]: GAVE ROBITUSSIN AC SYRUP 5 ML DUE TO COUGHING UPON PT REQUEST AND WILL CONTINUE TO MONITOR FOR EFFECTIVENESS OF MEDICATION
--- NOTE | 2017-10-17 15:57 | NUR ---
AVC-YY-[id number]: GAVE KLONOPIN 1 MG PO DUE TO SEVERE ANXIETY UPON PT REQUEST AND WILL CONTINUE TO MONITOR FOR EFFECTIVENESS OF MEDICATION
[2017-10-17 16:10] VITALS: BP 99/73
--- NOTE | 2017-10-17 17:00 | NUR ---
[id number]-EB-[id number]: GAVE NORCO 5/325 MG PO DUE TO GENERALIZE PAIN 06/03 UPON PT REQUEST AND WILL CONTINUE TO MONITOR FOR EFFECTIVENESS OF MEDICATION
[2017-10-17 20:00] VITALS: BP 99/68
[2017-10-17] MEDS: QUETIAPINE FUMARATE 100 MG TABLET PO SCH (21:26)
[2017-10-17] MEDS: TEMAZEPAM 7.5 MG CAPSULE PO PRN (21:26)
--- NOTE | 2017-10-17 23:51 | NUR ---
GPS RN NOTE PATIENT REQUESTING RESTORIL TO HELP SLEEP. RESTORIL 7.5MG GIVEN SAFELY ORDERED.
[2017-10-18] MEDS: clonazePAM 0.5 MG TABLET PO PRN ×3 (01:47→16:50)
[2017-10-18 08:00] VITALS: BP 100/54
[2017-10-18] MEDS: FUROSEMIDE 20 MG TABLET PO SCH (09:00)
[2017-10-18] MEDS: SERTRALINE HCL 25 MG TABLET PO SCH (09:09)
[2017-10-18] MEDS: predniSONE 20 MG TABLET PO SCH (09:10)
[2017-10-18] MEDS: QUETIAPINE FUMARATE 25 MG TABLET PO SCH ×3 (09:10→16:49)
[2017-10-18] MEDS: AMLODIPINE BESYLATE 2.5 MG TABLET PO SCH (09:10)
[2017-10-18] MEDS: ASPIRIN EC 81 MG TABLET.DR PO SCH (09:11)
[2017-10-18] MEDS: ATORVASTATIN 10 MG TABLET PO SCH (09:11)
[2017-10-18] MEDS: NICOTINE PATCH (14MG) 14 MG PATCH.TD24 TD SCH (09:12)
--- NOTE | 2017-10-18 10:39 | NUR ---
RN NOTES ADMINISTERED KLONOPIN 1 MG PO PRN FOR ANXIETY, PARANOIA, PER PATIENT REQUEST, V/S TAKEN BP-103/67, P-77, CONTINUED MONITORING.
[2017-10-18] MEDS: NYSTATIN CREAM 15 GM TUBE TP SCH ×2 (11:25→16:50)
[2017-10-18] MEDS: HYDROCODONE/APAP 5/325MG 1 EACH TABLET PO PRN ×2 (13:03→20:02)
--- NOTE | 2017-10-18 13:03 | NUR ---
RN NOTES ADMINISTERED NARCO 5/325 MG PO PRN FOR GENERALIZED PAIN 05/03, V/S TAKEN BP 105/ 68, P-77, CONTINUED MONITORING.
[2017-10-18 16:00] VITALS: BP 116/63
--- NOTE | 2017-10-18 16:50 | NUR ---
RN NOTES ADMINISTERED KLONOPIN 1 MG PO PRN FOR ANXIETY PER PATIENT REQUEST, V/S STABLE, CONTINUED MONITORING.
[2017-10-18] MEDS: TEMAZEPAM 7.5 MG CAPSULE PO PRN (21:23)
[2017-10-18] MEDS: QUETIAPINE FUMARATE 100 MG TABLET PO SCH (21:23)
[2017-10-18 21:50] VITALS: BP 111/61
[2017-10-19] MEDS: clonazePAM 0.5 MG TABLET PO PRN ×3 (01:22→16:18)
[2017-10-19 01:26] VITALS: BP 117/63
[2017-10-19 08:00] VITALS: BP 112/65
[2017-10-19] MEDS: FUROSEMIDE 20 MG TABLET PO SCH (08:49)
[2017-10-19] MEDS: ASPIRIN EC 81 MG TABLET.DR PO SCH (08:49)
[2017-10-19] MEDS: QUETIAPINE FUMARATE 25 MG TABLET PO SCH ×3 (08:49→17:07)
[2017-10-19] MEDS: ATORVASTATIN 10 MG TABLET PO SCH (08:49)
[2017-10-19] MEDS: NICOTINE PATCH (14MG) 14 MG PATCH.TD24 TD SCH (08:50)
[2017-10-19] MEDS: AMLODIPINE BESYLATE 2.5 MG TABLET PO SCH (08:50)
[2017-10-19] MEDS: NYSTATIN CREAM 15 GM TUBE TP SCH ×2 (08:50→17:25)
[2017-10-19] MEDS: predniSONE 20 MG TABLET PO SCH (08:53)
[2017-10-19] MEDS: SERTRALINE HCL 25 MG TABLET PO SCH (09:19)
[2017-10-19] MEDS: GUAIFENESIN/CODEINE 10 ML UDC PO PRN (09:19)
--- NOTE | 2017-10-19 09:19 | NUR ---
GPS/RN PATIENT ANXIOUS, IRRITABLE, REQUESTED KLONOPIN. ADMINISTERED KLONOPIN 1 MG, WILL CONTINUE TO MONITOR.
[2017-10-19] MEDS: HYDROCODONE/APAP 5/325MG 1 EACH TABLET PO PRN ×2 (11:21→11:23)
--- NOTE | 2017-10-19 11:23 | NUR ---
GPS/RN PATIENT REPORTS /10 GENERALIZED PAIN, REQUESTED NORCO PO, ADMINISTERED NORCO 5/325 1 TAB, WILL CONTINUE TO MONITOR.
--- NOTE | 2017-10-19 16:26 | NUR ---
GPS/RN PATIENT ANXIOUS, IRRITABLE, REQUESTED KLONOPIN. ADMINISTERED KLONOPIN 1 MG, WILL CONTINUE TO MONITOR.
[2017-10-19 19:56] VITALS: BP 99/48
[2017-10-19 21:12] VITALS: BP 101/68
[2017-10-19] MEDS: QUETIAPINE FUMARATE 100 MG TABLET PO SCH (21:12)
[2017-10-19] MEDS: diphenhydrAMINE HCL 25 MG CAPSULE PO PRN (21:19)
[2017-10-20 08:00] VITALS: BP 99/68
[2017-10-20 08:25] LABS: BASOPHILS % (AUTO) 0.4 % (0.0-2.0); EOSINOPHILS # (AUTO) 0.2 /CMM (0.0-0.7); EOSINOPHILS % (AUTO) 3.2 % (0.0-6.0); HEMATOCRIT 39 % (33-45); HEMOGLOBIN 13.4 g/dL (11.5-14.8); LYMPHOCYTES # (AUTO) 1.8 /CMM (0.8-4.8); LYMPHOCYTES % (AUTO) 23.4 % (20.0-44.0); MEAN CORPUSCULAR HEMOGLOBIN 33 PG (26.0-33.0); MEAN CORPUSCULAR HGB CONC 35 g/dl (31.0-36.0); MEAN CORPUSCULAR VOLUME 95 fL (82-100); MONOCYTES # (AUTO) 0.4 /CMM (0.1-1.30); MONOCYTES % (AUTO) 5.9 % (2.0-12.0); NEUTROPHILS # (AUTO) 5.1 /CMM (1.8-8.9); NEUTROPHILS % (AUTO) 67.1 % (43.0-81.0); PLATELET COUNT (AUTO) 195 /CMM (150-450); RDW COEFFICIENT OF VARIATION 14.2 (11.5-15.0); RED BLOOD CELL COUNT(AUTO) 4.08 MIL/uL (4.0-5.2); WHITE BLOOD COUNT (AUTO) 7.6 K/uL (4.3-11.0)
[2017-10-20 08:27] LABS: CALCIUM, SERUM 9.6 mg/dL (8.5-10.1); CREATININE 0.6 mg/dL (0.6-1.3)
[2017-10-20] MEDS: NICOTINE PATCH (14MG) 14 MG PATCH.TD24 TD SCH (08:39)
[2017-10-20] MEDS: AMLODIPINE BESYLATE 2.5 MG TABLET PO SCH (08:39)
[2017-10-20] MEDS: ATORVASTATIN 10 MG TABLET PO SCH (08:40)
[2017-10-20] MEDS: predniSONE 20 MG TABLET PO SCH (08:40)
[2017-10-20] MEDS: SERTRALINE HCL 25 MG TABLET PO SCH (08:40)
[2017-10-20] MEDS: FUROSEMIDE 20 MG TABLET PO SCH (08:40)
[2017-10-20] MEDS: ASPIRIN EC 81 MG TABLET.DR PO SCH (08:40)
[2017-10-20] MEDS: QUETIAPINE FUMARATE 25 MG TABLET PO SCH ×3 (08:40→16:33)
[2017-10-20] MEDS: NYSTATIN CREAM 15 GM TUBE TP SCH ×2 (08:41→16:28)
[2017-10-20] MEDS: clonazePAM 0.5 MG TABLET PO PRN ×2 (09:53→16:47)
--- NOTE | 2017-10-20 11:06 | NUR ---
Discharge Planning: SHIKHA received a call from Gume Toussaint from [facility], Placement Services to inform SW that placement had been found for pt and in [place]. SW gathered that placement was conditional (i.e. both pt and had to move in together at the same time). SW discussed conditions with pt however pt was unable to assure that could leave his current facility. SW will follow up. In addition, SW discussed care home options for pt if [facility] placement did not go through. SW will continue to follow up to ensure pt is properly discharged.
--- NOTE | 2017-10-20 11:15 | NUR ---
Discharge Planning: SHIKHA contacted Chadd, Bullard Operator at [facility], for treatment planning purposes (i.e. pts was discharged to above mentioned homes). SHIKHA left a detailed message and asked for a call back. SHIKHA will follow up.
[2017-10-20] MEDS: HYDROCODONE/APAP 5/325MG 1 EACH TABLET PO PRN ×2 (11:17→19:58)
--- NOTE | 2017-10-20 11:23 | NUR ---
Discharge Planning: SHIKHA faxed inquiry to [facility] for placement purposes. SHIKHA will follow up.
[2017-10-20] MEDS: diphenhydrAMINE HCL 25 MG CAPSULE PO PRN ×2 (13:06→21:06)
[2017-10-20 15:57] VITALS: BP 123/52
[2017-10-20 20:47] VITALS: BP 123/58
[2017-10-20] MEDS: QUETIAPINE FUMARATE 100 MG TABLET PO SCH (21:02)
[2017-10-21] MEDS: clonazePAM 0.5 MG TABLET PO PRN ×4 (01:17→20:11)
[2017-10-21 08:00] VITALS: BP 102/72
[2017-10-21] MEDS: ATORVASTATIN 10 MG TABLET PO SCH (08:55)
[2017-10-21] MEDS: ASPIRIN EC 81 MG TABLET.DR PO SCH (08:56)
[2017-10-21] MEDS: FUROSEMIDE 20 MG TABLET PO SCH (08:56)
[2017-10-21] MEDS: QUETIAPINE FUMARATE 25 MG TABLET PO SCH ×3 (08:56→16:12)
--- NOTE | 2017-10-21 08:56 | NUR ---
GPS/RN PATIENT ANXIOUS, IRRITABLE, REQUESTED KLONOPIN. ADMINISTERED KLONOPIN 1 MG, WILL CONTINUE TO MONITOR.
[2017-10-21] MEDS: AMLODIPINE BESYLATE 2.5 MG TABLET PO SCH (08:57)
[2017-10-21] MEDS: NYSTATIN CREAM 15 GM TUBE TP SCH ×2 (08:58→17:33)
[2017-10-21] MEDS: NICOTINE PATCH (14MG) 14 MG PATCH.TD24 TD SCH (08:58)
[2017-10-21] MEDS: SERTRALINE HCL 25 MG TABLET PO SCH (08:58)
[2017-10-21] MEDS: predniSONE 20 MG TABLET PO SCH (09:00)
[2017-10-21] MEDS: HYDROCODONE/APAP 5/325MG 1 EACH TABLET PO PRN (11:07)
--- NOTE | 2017-10-21 11:08 | NUR ---
GPS/RN PATIENT REPORTS 07/04 BACK PAIN, REQUESTED NORCO PO, ADMINISTERED NORCO 5/325 1 TAB, WILL CONTINUE TO MONITOR.
--- NOTE | 2017-10-21 12:14 | NUR ---
Discharge Planning: SHIKHA provided Charge Nurse, Brando with an update regarding pts discharge plan. Pt has been cleared to discharge (to [facility] on this date), pending medical clearance. Per Brando, he will follow up with MD in order to obtain medical clearance. SHIKHA will follow up to ensure pt is properly and safely discharged.
--- NOTE | 2017-10-21 15:30 | NUR ---
GPS/RN PATIENT ANXIOUS, IRRITABLE,RESTLESS, REQUESTED KLONOPIN. ADMINISTERED KLONOPIN 1 MG PO PER PATIENT REQUEST, WILL CONTINUE TO MONITOR.
[2017-10-21 16:00] VITALS: BP 107/62
[2017-10-21] MEDS: GUAIFENESIN/CODEINE 10 ML UDC PO PRN (16:21)
--- NOTE | 2017-10-21 18:15 | NUR ---
KRISTINE LAGUNAS CAME TO UNIT TO ASSESS PATIENT REGARDING SCABIES, NEW ORDER TO PUT PATIENT ON CONTACT ISOLATION PRECAUTIONS, NO FURHER Addendum: 10/21/17 at 1827 by ALEXANDRU BELLA RN NO OTHER VERBAL ORDERS AT THIS THIS TIME. WILL ENDORSE TO ONCOMING SHIFT TO FOLLOW UP WITH ANY FURTHER ORDERS INPUTTED IN SYSTEM.
[2017-10-21 20:00] VITALS: BP 106/69
[2017-10-21] MEDS: diphenhydrAMINE HCL 25 MG CAPSULE PO PRN (21:32)
[2017-10-21] MEDS: QUETIAPINE FUMARATE 100 MG TABLET PO SCH (21:32)
[2017-10-21] MEDS: TEMAZEPAM 7.5 MG CAPSULE PO PRN (21:32)
[2017-10-21] MEDS ORDERED: IVERMECTIN 3 MG TABLET PO ONE (22:00)
[2017-10-21] MEDS ORDERED: PERMETHRIN 5% CRM 60 GM TUBE TP ONE ×2 (22:00→23:45)
[2017-10-22 08:00] VITALS: BP 109/76
[2017-10-22] MEDS: QUETIAPINE FUMARATE 25 MG TABLET PO SCH ×3 (08:37→16:20)
[2017-10-22] MEDS: ATORVASTATIN 10 MG TABLET PO SCH (08:37)
[2017-10-22] MEDS: ASPIRIN EC 81 MG TABLET.DR PO SCH (08:37)
[2017-10-22] MEDS: FUROSEMIDE 20 MG TABLET PO SCH (08:38)
[2017-10-22] MEDS: SERTRALINE HCL 25 MG TABLET PO SCH (08:38)
[2017-10-22] MEDS: AMLODIPINE BESYLATE 2.5 MG TABLET PO SCH (08:38)
[2017-10-22] MEDS: NICOTINE PATCH (14MG) 14 MG PATCH.TD24 TD SCH (08:39)
[2017-10-22] MEDS: clonazePAM 0.5 MG TABLET PO PRN ×2 (08:43→14:36)
[2017-10-22] MEDS: predniSONE 20 MG TABLET PO SCH (08:44)
[2017-10-22] MEDS: NYSTATIN CREAM 15 GM TUBE TP SCH ×2 (09:03→16:20)
[2017-10-22] MEDS: GUAIFENESIN/CODEINE 10 ML UDC PO PRN ×2 (09:05→17:38)
--- NOTE | 2017-10-22 09:06 | NUR ---
GPS/RN PATIENT ANXIOUS, IRRITABLE,RESTLESS, REQUESTED KLONOPIN. ADMINISTERED KLONOPIN 1 MG PO PER PATIENT REQUEST, AND ROBITUSSIN 5 ML PER ORDER FOR COUGH WILL CONTINUE TO MONITOR.
--- NOTE | 2017-10-22 10:06 | NUR ---
GPS RN NOTE: NEW T.O OTDER FROM WIRE WELDER JANICE LAGUNAS IVERMECTIN 15 MG PO ONCE ORDER PLACED AND CARED OUT
[2017-10-22] MEDS ORDERED: IVERMECTIN 3 MG TABLET PO ONE (10:30)
[2017-10-22] MEDS: HYDROCODONE/APAP 5/325MG 1 EACH TABLET PO PRN (10:43)
--- NOTE | 2017-10-22 11:00 | NUR ---
GPS RN NOTE: PT TOOK A SHOWER
--- NOTE | 2017-10-22 11:20 | NUR ---
Discharge Planning: SHIKHA faxed CJ from [facility] updated Progress Notes regarding pts medical treatment for review. SHIKHA will follow up.
--- NOTE | 2017-10-22 14:00 | NUR ---
RN-CO: Per Reymundo Brown FITTING ROOM MAINTENANCE MECHANIC, patient is cleared and treated for scabies.
--- NOTE | 2017-10-22 14:15 | NUR ---
Discharge Planning: A clearance note from medical doctor was obtained, as requested by RAJ from [facility] . SHIKHA faxed the note to CJ at fax #[phone]. SHIKHA then contacted CJ and asked him to update SHIKHA on status of acceptance as soon as possible, as patient is set for discharge today.
--- NOTE | 2017-10-22 14:17 | NUR ---
Discharge Planning: SHIKHA called and left a voicemail for Chadd, Zipper Trimmer Hand at [facility], . Chadd is the case checker for patient's , Robert Robledo. SHIKHA asked Chadd to call her back and provided her direct contact information. SHIKHA wanted to inform patient's via the case checker that patient will be discharging to [facility] soon.
--- NOTE | 2017-10-22 14:41 | NUR ---
Discharge Planning: SHIKHA received a call from Chadd, director of [please note he was mistakenly identified as kiln worker in previous notes] [facility], . SHIKHA informed Chadd of where patient will be transferred. Chadd stated that he will have the residential case workers inform patient's , Tiburcio Robledo, of this. Chadd also stated that they will be able to offer transportation for Robert Robledo to visit patient at [facility]. SHIKHA informed patient of this. Patient was extremely happy about this update and thanked SHIKHA.
--- NOTE | 2017-10-22 14:42 | NUR ---
GPS/RN PATIENT ANXIOUS, IRRITABLE,RESTLESS, REQUESTED KLONOPIN. ADMINISTERED KLONOPIN 1 MG PO PER PATIENT REQUEST, WILL CONTINUE TO MONITOR.
[2017-10-22 16:00] VITALS: BP 106/62
--- NOTE | 2017-10-22 16:06 | NUR ---
Discharge Planning: SHIKHA faxed a progress note and nursing notes to CJ from [facility] . CJ Then called SW and informed her that patient will be able to come to the facility. SHIKHA informed patient of this. SHIKHA called Chadd, director of [facility], and informed him that patient will be discharging today. Chadd stated that he will let patient's , Tiburcio Robledo know and that he will arrange transportation for Robert to see his .
--- NOTE | 2017-10-22 16:06 | NUR ---
RN-CO: DR PIZANO ORDERED TO DISCONTINUE HOLD AND DISCHARGE PATIENT TO SNF TODAY. PATIENT IS CALM AND COOPERATIVE TO CARE. NO ACUTE DISTRESS NOTED, DENIED SUICIDAL AND HOMICIDAL IDEATION. BRIGHT AFFECT. DENIED AUDITORY AND VISUAL HALLUCINATION. MEDICALLY CLEARED BY JANICE LAGUNAS NP FOR DISCHARGE.
[2017-10-22] MEDS: diphenhydrAMINE HCL 25 MG CAPSULE PO PRN (16:20)
--- NOTE | 2017-10-22 16:21 | NUR ---
WSS-BO-BZHHL: GAVE BENADRYL 25 MG PO DUE TO ITCHINESS UPON PT REQUEST AND WILL CONTINUE TO MONITOR
--- NOTE | 2017-10-22 16:29 | NUR ---
Discharge Note: Patient will be discharged to [facility], [address] [place] [address] / fax number [phone] via ambulance transportation arranged by public health social worker via [employer], trip #[id number] at 7pm. Patients , Tiburcio Robledo, was informed via director of [facility] , Chadd. spoke with Chadd, director of [facility], and informed him of the discharge for patient. Chadd stated that he will help facilitate transportation for patients to visit patient at [facility]. Upon discharge, patient appeared calm and cooperative. Patient denied suicidal and homicidal ideation. Patient will be followed by car repossessor Dr. Singh [address] [facility] [address], [place] [phone] at the facility. Patient will also be under the care of psychiatrist, Dr. Lala [address], [place] [address], [phone]. As patient is a smoker, she was referred to a nicotine anonymous group held at [address] [place] [address], room 8, [place] [address] and was encourage to present on , November 04 at 7pm. Additional resources for smoking cessation included [employer], 800-LUNGUSA and [employer], .
--- NOTE | 2017-10-22 17:44 | NUR ---
GPS RN NOTE: PT DISCHARGE TO [facility] [place],[address] [place] [address] VIA AMBULANCE PT IN STABLE FOR DISCHARGE NO S/S DISTRESS NOTED DENIES SI/HI PT COOPERATIVE AND COMPLIANT. DR HARINDER LAND PT WITH CONTINUE MEDICATIONS ARTIFICIAL FLOWERS STARCHER JANICE VALADEZ PT FROM [facility] DC ISOLATION TX DONE PT STABLE FOR DISCHARGE ORDER FOR DC PLACED.REPORT GIVEN FACILITY SILVIA CRUZ,SKIN CHECKED PICTURE PLACED IN THE CHART. ALL PATIENT VALUABLES RETURNED TO PT,EXIT CARE DONE ,PRINTED SIGN AND GIVEN TP PT. MED RECON FAX TO FACILITY GIVEN AND EXPLAIN TO PT.
== END 2017-10-22 19:45 | DRG 885 ==
LOC: GPS 00:46
PROVIDERS: ADMIT Psychiatry & Neurology Psychiatry; ATTEND Internal Medicine
DX: F33.3 Major depressive disorder, recurrent, severe with psychotic symptoms (principal); F11.20 Opioid dependence, uncomplicated; J44.9 Chronic obstructive pulmonary disease, unspecified; F29 Unspecified psychosis not due to a substance or known physiological condition; K86.1 Other chronic pancreatitis; R45.851 Suicidal ideations; N39.0 Urinary tract infection, site not specified; E03.9 Hypothyroidism, unspecified; E78.5 Hyperlipidemia, unspecified; F17.210 Nicotine dependence, cigarettes, uncomplicated; F41.9 Anxiety disorder, unspecified; G89.4 Chronic pain syndrome; I10 Essential (primary) hypertension; I25.10 Atherosclerotic heart disease of native coronary artery without angina pectoris; J06.9 Acute upper respiratory infection, unspecified; K21.9 Gastro-esophageal reflux disease without esophagitis; Z79.899 Other long term (current) drug therapy; Z90.710 Acquired absence of both cervix and uterus; Z73.6 Limitation of activities due to disability
CPT/HCPCS: 36415; 71010-TC; 80048-TC; 80053-TC; 80061-TC; 85025-TC; 87081-TC; 97116-TC; 97530-TC; Q0163; Z7610

== ENCOUNTER 2019-10-27 15:25 | Inpatient (IN) | payer OTHER ==
[~2019-10-27] VITALS: Ht 170.2 cm; Wt 85.7 kg
[~2019-10-27 15:25] MED LIST changes: +ALBU8.5H8 INH; +AMLO2.5T4 PO; +ASPI-1152 PO; +ATOR20TA PO; +CHOL20004 PO; +CIPR500T5 PO; +FURO20TA4 PO; +HYDR-4384 PO; +METR-147 PO; +NYST15CR TP; +QUET100T PO; +SERT25TA PO
--- NOTE | 2019-10-27 15:56 | NUR ---
TO ER TODAY- C/O GLF TODAY- FROM THE AL; C/O BLE WEAKNESS
--- NOTE | 2019-10-27 16:32 | NUR ---
AWAITING FOR ER PROVIDER TO SEE
[2019-10-27] MEDS ORDERED: ONDANSETRON HCL/PF 4 MG/2 ML VIAL ONE (16:41)
[2019-10-27] MEDS ORDERED: methylPREDNISolone SOD SUCC 125 MG/2ML VIAL ONE (16:41)
[2019-10-27] MEDS ORDERED: MORPHINE SULFATE INJ 4 MG/ML DISP.SYRIN ONE (16:42)
[2019-10-27 16:58] LABS: BASOPHILS % (AUTO) 0.5 % (0.0-2.0); EOSINOPHILS % (AUTO) 0.3 % (0.0-6.0); HEMATOCRIT 52 % (33-45); HEMOGLOBIN 17.6 g/dL (11.5-14.8); LYMPHOCYTES # (AUTO) 1.4 /CMM (0.8-4.8); LYMPHOCYTES % (AUTO) 15.9 % (20.0-44.0); MEAN CORPUSCULAR HGB CONC 34 g/dl (31.0-36.0); MEAN CORPUSCULAR VOLUME 94 fL (82-100); MONOCYTES # (AUTO) 0.6 /CMM (0.1-1.30); MONOCYTES % (AUTO) 6.9 % (2.0-12.0); NEUTROPHILS # (AUTO) 6.7 /CMM (1.8-8.9); NEUTROPHILS % (AUTO) 76.4 % (43.0-81.0); PLATELET COUNT (AUTO) 224 /CMM (150-450); RED BLOOD CELL COUNT(AUTO) 5.54 MIL/uL (4.0-5.2); WHITE BLOOD COUNT (AUTO) 8.8 K/uL (4.3-11.0)
[2019-10-27] MEDS ORDERED: ONDANSETRON HCL/PF 4 MG/2 ML VIAL IVP ONE (17:00)
[2019-10-27] MEDS ORDERED: IV NS 0.9% 1,000 ML BAG IV ONE (17:00)
[2019-10-27] MEDS ORDERED: IPRATROPIUM NEB FS 0.5 MG/2.5 ML AMPUL.NEB NEB ONE (17:00)
[2019-10-27] MEDS ORDERED: methylPREDNISolone SOD SUCC 125 MG/2ML VIAL IV ONE (17:00)
[2019-10-27] MEDS ORDERED: MORPHINE SULFATE INJ 2 MG/ML DISP.SYRIN IV ONE (17:00)
[2019-10-27] MEDS ORDERED: ALBUTEROL FS 2.5 MG/3 ML VIAL.NEB NEB ONE (17:00)
[2019-10-27 17:05] LABS: CALCIUM, SERUM 10.7 mg/dL (8.5-10.1); CARBON DIOXIDE 33 mmol/L (21-32); CHLORIDE 101 mmol/L (98-107); CREATININE 0.7 mg/dL (0.6-1.3); GLUCOSE 119 mg/dL (74-106); POTASSIUM 3.2 mmol/L (3.5-5.1); SODIUM SERUM 141 mmol/L (136-145); UREA NITROGEN, BLOOD 11 mg/dL (7-18)
--- NOTE | 2019-10-27 17:05 | NUR ---
MEDICATED PER ERMD ORDER, PT CHERRY WELL. WILL CONT TO MONITOR.
[2019-10-27] MEDS ORDERED: ALBUTEROL FS 2.5 MG/3 ML VIAL.NEB ONE (17:12)
[2019-10-27] MEDS ORDERED: IPRATROPIUM NEB FS 0.5 MG/2.5 ML AMPUL.NEB ONE (17:12)
[2019-10-27 17:18] LABS: ALANINE AMINOTRANSFERASE 47 U/L (12-78); ALBUMIN 2.9 g/dL (3.4-5.0); ALKALINE PHOSPHATASE 105 U/L (46-116); ASPARTATE AMINOTRANSFERASE 51 U/L (15-37); B-TYPE NATRIURETIC PEPTIDE 252 PG/ML (0-125); BILIRUBIN,DIRECT 0.2 mg/dL (0.0-0.2); BILIRUBIN,TOTAL 0.8 mg/dL (0.2-1.0); TOTAL PROTEIN, SERUM 7.3 g/dL (6.4-8.2)
--- NOTE | 2019-10-27 17:20 | NUR ---
PT'S GETTING BREATHING TX, PT CHERRY WELL.
[2019-10-27 17:22] LABS: ABG OXYGEN SATURATION 50.8 % (92.0-98.5); ABG PCO2 58.1 mmHg (35.0-45.0); ABG PH 7.353 (7.350-7.450); ABG PO2 26.8 mmHg (75.0-100.0); COHb 3.9 % (0.5-1.5); MetHb 0.3 % (0.0-1.5); O2Hb 48.7 % (94.0-97.0); SITE, ABG Other; VENT MODE, BG NC 4L
[2019-10-27] MEDS ORDERED: GABA-532 PO (17:55)
[2019-10-27] MEDS ORDERED: OXYB5TAB16 PO (17:55)
[2019-10-27] MEDS ORDERED: CITA10TA9 PO (17:55)
[2019-10-27] MEDS ORDERED: CLON2TAB11 PO (17:55)
[2019-10-27] MEDS ORDERED: CT SWABBABLE VALVE TRANS SET 1 EA INFUS.SET MC ONE (18:24)
[2019-10-27] MEDS ORDERED: IV NS 0.9% 250 ML IV ONE (18:24)
[2019-10-27] MEDS ORDERED: IOHEXOL-300 100 ML VIAL IV ONE (18:24)
[2019-10-27] MEDS ORDERED: DOXYCYCLINE 100 MG in IV D5W 100 ML IV ONE (18:30)
[2019-10-27] MEDS ORDERED: POTASSIUM CHLORIDE 20 MEQ TAB.PRT.SR PO ONE ×2 (18:30→19:27)
--- NOTE | 2019-10-27 19:20 | NUR ---
CALLED [facility], PAGED DR MAK
--- NOTE | 2019-10-27 19:30 | NUR ---
CALLED NURSING SUP FOR BED
--- NOTE | 2019-10-27 20:27 | NUR ---
REPORT GIVEN TO KANU VEGA
--- NOTE | 2019-10-27 20:37 | NUR ---
RECEIVE PT FROM Monique VIRAOMNTES
[2019-10-27 20:40] VITALS: BP 107/69
--- NOTE | 2019-10-27 21:00 | NUR ---
RECEIVE PT IN BED A/O X 2-3 PERIOD OF FORGETFULNESS. PT SLEEPY AT THIS TIME ON 3LPM VIA NC 02 SAT 91%. RESPIRATIONS EVEN AND UNLABORED. HEAD TO TOE ASSESSMENT IS DONE. KEPT CLEAN DRY AND COMFORTABLE. PT DENIES PAIN AT THIS TIME NO NAUSEA AND VOMITING. SAFETY MEASURES AT ALL TIMES. WILL CONTINUE TO MONITOR Addendum: 10/28/19 at 0248 by KANU DAMON RN RECEIVE PT WITH NO PAPERWORKS (POLST) FROM [facility].
--- NOTE | 2019-10-27 21:30 | NUR ---
PT REQUESTED TO HAVE MILK AND 1 JUSTINA CRACKER
--- NOTE | 2019-10-27 21:30 | NUR ---
FF UP Monique ALEXIS RN IF PT HAS OTHER PAPERWORKS FROM [facility] PER Monique VEGA NO PAPERWORKS FROM FACILITY HE SAID SHE WAS FROM HOME.
--- NOTE | 2019-10-27 22:00 | NUR ---
PLASTIC TUBING INSULATION SUPERVISOR ALL INITIAL PHYSICAL ASSESSMENT IS DONE AT 2200 10/27/2019 PT IN ON SINUS RHYTHM 90 ON CARDIAC MONITORING
--- NOTE | 2019-10-27 23:20 | NUR ---
NOTED WITH LOW 02 SAT 88%-90% ON 3LPM VIA NC 02 SAT WILL CONTINUE TO MONITOR. PT A/O X 2, PER PT "IM OKAY" CONTINUOS SPO2 AT BEDSIDE.
--- NOTE | 2019-10-27 23:30 | NUR ---
PER DR. MAK PLAN TO KEEP HER ON 3LPM VIA NC AND MAINTAIN 02 SAT TO 90-93%. DR VERBALIZE "WE WILL DECIDE PLAN AFTER ABG RESULT"
--- NOTE | 2019-10-27 23:32 | NUR ---
S/B DR. MAK AT [facility] ORDERED STAT ABG PT A/O X 2 ON 2LPM VIA NC Addendum: 10/28/19 at 0229 by KANU DAMON RN S/B 10/27/2019 AT 2330
[2019-10-27 23:33] LABS: APPEARANCE,URINE SL CLOUDY (CLEAR); BILIRUBIN,URINE MODERATE (NEGATIVE); BLOOD, URINE NEGATIVE Ery/uL (NEGATIVE); COLOR,URINE YELLOW (YELLOW); KETONES,URINE 15 (NEGATIVE); LEUKOCYTE ESTERASE ,URINE NEGATIVE (NEGATIVE); NITRITE, URINE NEGATIVE (NEGATIVE); PH,URINE 6.5 (5.0-8.0); PROTEIN,URINE NEGATIVE (NEGATIVE); UGLUCOSE NEGATIVE (NEGATIVE)
[2019-10-27 23:43] LABS: BACTERIA,URINE Moderate /HPF (None Seen); SQUAMOUS EPITHELIAL CELL,UR Few /HPF (None Seen); WBC,URINE 0-2 /HPF (0-3)
[2019-10-28] VITALS (49 sets, daily range): BP systolic 68–157; BP diastolic 40–94
[2019-10-28 00:08] LABS: ABG OXYGEN SATURATION 89.4 % (92.0-98.5); ABG PCO2 48.6 mmHg (35.0-45.0); ABG PH 7.307 (7.350-7.450); ABG PO2 59.4 mmHg (75.0-100.0); AaDO2 111.9 mmHg; COHb 1.7 % (0.5-1.5); MetHb 0.3 % (0.0-1.5); O2Hb 87.6 % (94.0-97.0); SITE, ABG Right Radial; VENT MODE, BG Nasal Cannula
--- NOTE | 2019-10-28 00:20 | NUR ---
ETHAN AND SPOKE TO HOSPITALIST SPOKE TO DR. VARMA RELAYED RECENT ABG I TOLD HIM PT'S O2 SAT IS GETTING LOW AT THIS TIME PT ON 3LPM VIA NC O2 SAT AT 85-88% NOTED PT IS LETHARGIC ABLE TO RESPOND TO HER NAME. PER DR. GLASER ORDERED TO TRANSFER PT TO ICU FOR BIPAP READ BACK AND VERIFIED ORDERS NOTED AND CARRIED OUT. PT
[2019-10-28] MEDS ORDERED: LEVOFLOXACIN 750 MG /D5W 150ML 150 ML IV ONE (00:26)
--- NOTE | 2019-10-28 00:30 | NUR ---
PT TRANSFERRED TO ICU VIA ACLS PROTOCOL WITH ALL BELONGINGS AT BEDSIDE AND UPPER DENTURE. REPORT GIVEN TO ED (CHANGE NURSE)
[2019-10-28] MEDS: LEVOFLOXACIN 750 MG /D5W 150ML 750 MG in PREMIX 1 EA IV SCH (00:41)
[2019-10-28] MEDS ORDERED: NOREPINEPHRINE 16 MG in IV D5W 500 ML IV PRN (01:30)
[2019-10-28] MEDS ORDERED: IV NS 0.9% 500 ML IV ONE (01:30)
--- NOTE | 2019-10-28 01:40 | NUR ---
FACILITY SECURITY OFFICER. RECEIVED THE PT FROM [facility] AROUND 0045, PT IS OPEN EYES. VERY LETHARGIC, RESPONDING PAIN FULL STIMULI HOB ELEVATED. FC PATENT. WILL CONTINUE TO MONITOR VITALS.
[2019-10-28] MEDS ORDERED: NOREPINEPHRINE 4 MG/4 ML AMPUL IV ONE (01:45)
--- NOTE | 2019-10-28 01:52 | NUR ---
BAKERY SUPERVISOR. BLOOD PRESSURE IS LOW 68/45. NOTIFIED MD VARMA. NS 500ML BOLUS ORDERED.
[2019-10-28] MEDS ORDERED: VANCOMYCIN 1 GM in IV D5W 250 ML IV ONE (02:00)
--- NOTE | 2019-10-28 02:02 | NUR ---
DIE MAKER STAMPING. AFTER BOLUS NS 500ML. BLOOD PRESSURE IS LOW LEVOPHED STARTED.
[2019-10-28 02:03] LABS: ABG BASE EXCESS -1.6 mmol/L; ABG OXYGEN SATURATION 93.3 % (92.0-98.5); ABG PCO2 57.4 mmHg (35.0-45.0); ABG PH 7.279 (7.350-7.450); ABG PO2 75.3 mmHg (75.0-100.0); AaDO2 580.3 mmHg; COHb 1.2 % (0.5-1.5); MetHb 0.5 % (0.0-1.5); O2Hb 91.7 % (94.0-97.0); SITE, ABG Left Radial
--- NOTE | 2019-10-28 02:04 | NUR ---
MESSI REPEATED. NOTIFIED MD VARMA
--- NOTE | 2019-10-28 02:05 | NUR ---
RT NOTE CRITICAL ABG RESULTS RELAYED TO CHARGE NURSE ED AND SILVIA FREEMAN.
[2019-10-28] MEDS ORDERED: VANCOMYCIN 1 GM VIAL ONE (02:51)
[2019-10-28] MEDS: IV NS 0.9% 1,000 ML IV PRN ×2 (02:54→21:37)
[2019-10-28 03:49] LABS: ABG BASE EXCESS -0.7 mmol/L; ABG OXYGEN SATURATION 93.2 % (92.0-98.5); ABG PCO2 62.4 mmHg (35.0-45.0); ABG PH 7.269 (7.350-7.450); ABG PO2 72.8 mmHg (75.0-100.0); AaDO2 577.8 mmHg; COHb 0.8 % (0.5-1.5); MetHb 0.5 % (0.0-1.5); SITE, ABG Left Radial; VENT MODE, BG Bipap 24/8 RR 18 100%
--- NOTE | 2019-10-28 04:17 | NUR ---
LOCKS TENDER.ABNORMAL ABG NOTIFIED AVANI. ORDER TO INTUBATION. MD AHMADI ER INTUBATED WITH OUT DIFFICULT ETOMIDATE 25MG, ROCURONIUM 80 MG IV PUSH. ETT 7.5CM,LIP 23,,TV 500,AC 22,PEEP 8. FIO2 100%. SAT 94. OGT PLACED. CLAMPED. HOB ELEVATED. SISI SOFT WRIST RESTRAINT INITIALED. WILL CONTINUE TO MONITOR.
--- NOTE | 2019-10-28 04:24 | NUR ---
LATE ENTRY AT 0400 PT ORALLY INTUBATED BY MD AHMADI. 7.5 ETT AND 23 CM @ LIP. POSITIVE COLOR CHANGE AND BILATERAL BREATH SOUNDS NOTED. SX DONE. PT ETT IS PATENT AND SECURE. VENT PLUGGED INTO RED OUTLET. ALARMS APPEAR TO BE FUNCTIONING PROPERLY. AMBU BAG AT BEDSIDE. NO SOB NOTED. SILVIA FREEMAN AND CHARGE NURSE ED BEDSIDE. Addendum: 10/28/19 at 0426 by HARINI COHEN RT Amended: Links added.
[2019-10-28] MEDS ORDERED: PROPOFOL 100 ML ONE (04:48)
[2019-10-28 04:57] LABS: BASOPHILS % (AUTO) 0.1 % (0.0-2.0); HEMATOCRIT 48 % (33-45); HEMOGLOBIN 16.3 g/dL (11.5-14.8); LYMPHOCYTES # (AUTO) 0.5 /CMM (0.8-4.8); LYMPHOCYTES % (AUTO) 4.7 % (20.0-44.0); MEAN CORPUSCULAR HGB CONC 34 g/dl (31.0-36.0); MEAN CORPUSCULAR VOLUME 94 fL (82-100); MONOCYTES # (AUTO) 0.3 /CMM (0.1-1.30); MONOCYTES % (AUTO) 3.1 % (2.0-12.0); NEUTROPHILS # (AUTO) 9.1 /CMM (1.8-8.9); NEUTROPHILS % (AUTO) 92.1 % (43.0-81.0); PLATELET COUNT (AUTO) 247 /CMM (150-450); RED BLOOD CELL COUNT(AUTO) 5.16 MIL/uL (4.0-5.2); WHITE BLOOD COUNT (AUTO) 9.8 K/uL (4.3-11.0)
[2019-10-28] MEDS: PROPOFOL 100 ML IV PRN ×3 (05:00→21:37)
[2019-10-28] MEDS: IPRATROPIUM NEB FS 0.5 MG/2.5 ML AMPUL.NEB NEB SCH ×4 (05:09→20:03)
[2019-10-28] MEDS: ALBUTEROL FS 2.5 MG/0.5 ML VIAL.NEB NEB SCH ×4 (05:10→20:03)
[2019-10-28 05:35] LABS: CALCIUM, SERUM 10.1 mg/dL (8.5-10.1); CARBON DIOXIDE 25 mmol/L (21-32); CHLORIDE 102 mmol/L (98-107); CREATININE 0.6 mg/dL (0.6-1.3); GLUCOSE 307 mg/dL (74-106); MAGNESIUM 1.6 mg/dL (1.8-2.4); PHOSPHORUS 3.5 mg/dL (2.5-4.9); POTASSIUM 3.8 mmol/L (3.5-5.1); SODIUM SERUM 139 mmol/L (136-145); UREA NITROGEN, BLOOD 11 mg/dL (7-18)
--- NOTE | 2019-10-28 05:40 | NUR ---
RT NOTE CRITICAL ABG RESULTS RELAYED TO CHARGE NURSE ED AND SILVIA FREEMAN. AWAITING FURTHER ORDERS.
[2019-10-28 05:43] LABS: ABG BASE EXCESS 1.9 mmol/L; ABG OXYGEN SATURATION 89.5 % (92.0-98.5); ABG PCO2 39.4 mmHg (35.0-45.0); ABG PH 7.438 (7.350-7.450); ABG PO2 53.6 mmHg (75.0-100.0); COHb 0.6 % (0.5-1.5); MetHb 0.5 % (0.0-1.5); O2Hb 88.5 % (94.0-97.0); SITE, ABG Left Radial; VENT MODE, BG AC 22 500 100% +8
[2019-10-28] MEDS ORDERED: MEROPENEM 1 G VIAL IV ONE (05:51)
[2019-10-28] MEDS: MEROPENEM 1 G in IV NS 0.9% 100 ML IV SCH ×3 (05:53→21:35)
--- NOTE | 2019-10-28 05:54 | NUR ---
EFFICIENCY EXPERT. CRITICAL LAB CALLED FOR LACTIC ACID 2.9. AND ABG RESULT S/P INTUBATION MD VARMA MADE AWARE.
--- NOTE | 2019-10-28 06:05 | NUR ---
AIRFRAME TECHNICIAN. FAMILY CALLED, X2 NO ANSWER
--- NOTE | 2019-10-28 06:27 | NUR ---
ELECTROLYTIC ETCHER. AM CARE, ORAL CARE, BED BATH GIVEN. LINEN CHANGED. REMAINING SAME VENT SETTING ON. SAT 94%. AUTO ELECTRICAL TECHNICIAN SHOWING NSR. IV RT HAND 20 AND 18G. IVF NS 125ML/H,DIPRIVAN 10MCG/KG/MIN, HOB ELEVATED. OGT INTACT. CLAMPED. SISI SOFT WRIST RESTRAINT CHECKED AND RELEASED. NO INJURY OR REDNESS NOTED. FC PATENT. URINE DRAINING, PT IS NPO, AFEBRILE. LEVOPHED STARTED AND TURNED OFF. BP WENT UP 140/78 WILL CONTINUE TO MONITOR;
--- NOTE | 2019-10-28 07:30 | NUR ---
RN NOTES RECEIVED PATIENT IN BED, SEDATED WITH DIPRIVAN DRIP, ABLE TO RESPOND WITH TACTILE STIMULI, INTUBATED ORALLY WITH ETT 7.5 AT 23CM ON THE LIP. SATING HIGH 80 TO LOW 90 ON THE CURRENT VENTILATOR SETTING. OGT IN PLACE, CLAMPED AT THIS TIME. PATIENT SUCTIONED FOR AIRWAY PATENCY, SECRETION NOTED TO BE THICK, WHITE TO YELLOWISH IN APPEARANCE. PATIENT SINUS RHYTHM ON THE MONITOR WITH HR ON THE 80'S. BILATERAL SOFT RESTRAINTS IN PLACE, REMOVE AND REPLACE SKIN INTEGRITY, AREA NOTED TO BE INTACT, RESTRAINTS KEPT IN PLACE DUE TO RISK OF INJURY TO SELF. IV SITES NOTED ON THE RAC G 20 AND R HAND G 20; BOTH IN PLACE AND FLUSHES WELL. NORMAL SALINE AT 125CC/HR AND DIPRIVAN AT 10 MCG RUNNING AT THIS TIME. HOB KEPT ELEVATED. SAFETY MEASURES OBSERVED AND MAINTAINED. SRX2. CALL LIGHT PLACED WITHIN REACH. WILL CONTINUE TO MONITOR PATIENT ACCORDINGLY
[2019-10-28] MEDS ORDERED: FEE PK DOSING 1 MIN EA MC ONE (08:26)
--- NOTE | 2019-10-28 08:30 | NUR ---
RT NOTE Late Entry: Abg taken and critical results given to RN. Awaiting new orders
[2019-10-28] MEDS: PANTOPRAZOLE 40 MG TABLET.DR PO SCH (08:36)
[2019-10-28] MEDS: Magnesium 1GM/D5W 100ML PREMIX 100 ML IV SCH ×2 (08:36→09:56)
[2019-10-28] MEDS: methylPREDNISolone SOD SUCC 125 MG/2ML VIAL IV SCH ×3 (08:36→17:16)
[2019-10-28] MEDS ORDERED: ETOMIDATE 2 MG/ML VIAL IV ONE (08:47)
[2019-10-28] MEDS ORDERED: ROCURONIUM BROMIDE 50 MG/5 ML IV ONE (08:47)
[2019-10-28] MEDS ORDERED: FEE EMEERGENCY 1 MIN EA MC ONE (08:47)
[2019-10-28 10:27] LABS: ABG BASE EXCESS 4.1 mmol/L; ABG OXYGEN SATURATION 84.7 % (92.0-98.5); ABG PH 7.522 (7.350-7.450); ABG PO2 41.9 mmHg (75.0-100.0); AaDO2 638.1 mmHg; COHb 0.6 % (0.5-1.5); MetHb 0.4 % (0.0-1.5); O2Hb 83.9 % (94.0-97.0); SITE, ABG Left Radial; VENT MODE, BG AC 22 500 100% +8
--- NOTE | 2019-10-28 10:30 | NUR ---
RT NOTE Late Entry: No new orders per Qarni
[2019-10-28] MEDS: ENOXAPARIN SODIUM 80 MG/0.8 ML DISP.SYRIN SQ SCH ×2 (11:18→21:36)
--- NOTE | 2019-10-28 14:59 | NUR ---
RT NOTE Pt rec'd orally intubated via ETT sz #7.5 secured at 23 cm @ the lip line. Pt sx'd for thick mod amt of thick yellow secretions. alarms are set and audible. vent plugged into red outlet. Ambu bag bedside. Will continue to monitor closely. Addendum: 10/28/19 at 1505 by RONI HUDSON RT Amended: Links added.
[2019-10-28] MEDS: VANCOMYCIN 1 GM in IV D5W 250 ML IV SCH (16:49)
--- NOTE | 2019-10-28 19:10 | NUR ---
RN NOTES ENDORSED FOR CONTINUITY OF CARE. NOT ON ANY FORM OF DISTRESS. TOLERATING CURRENT VENT SETTINGS. STILL SEDATED WITH DIPRIVAN AT 10MCG. NO INDICATION OF PAIN NOTED AT THIS TIME. NS STILL RUNNING AT 125CC/HR. HOB ELEVATED. SAFETY MEASURES IN PLACE. CALL LIGHT WITHIN REACH
[2019-10-29] VITALS (25 sets, daily range): BP systolic 97–156; BP diastolic 67–99
[2019-10-29] MEDS: LEVOFLOXACIN 750 MG /D5W 150ML 750 MG in PREMIX 1 EA IV SCH ×2 (00:30→23:07)
[2019-10-29] MEDS: ALBUTEROL FS 2.5 MG/0.5 ML VIAL.NEB NEB SCH ×4 (01:30→19:39)
[2019-10-29] MEDS: IPRATROPIUM NEB FS 0.5 MG/2.5 ML AMPUL.NEB NEB SCH ×4 (01:30→19:39)
[2019-10-29] MEDS: VANCOMYCIN 1 GM in IV D5W 250 ML IV SCH ×3 (03:58→22:09)
[2019-10-29 05:01] LABS: CALCIUM, SERUM 9.9 mg/dL (8.5-10.1); CREATININE 0.6 mg/dL (0.6-1.3); POTASSIUM 3.3 mmol/L (3.5-5.1)
[2019-10-29] MEDS: MEROPENEM 1 G in IV NS 0.9% 100 ML IV SCH ×3 (05:41→21:08)
[2019-10-29] MEDS: PROPOFOL 100 ML IV PRN ×3 (06:42→22:13)
--- NOTE | 2019-10-29 07:30 | NUR ---
RN NOTES RECEIVED PATIENT BACK FROM PREVIOUS SHIFT. PATIENT STILL SEDATED WITH DIPRIVAN AT 25MCG AT THIS TIME. NOT ON ANY FORM OF DISTRESS. ORALLY INTUBATED WITH THE FOLLOWING SETTING AC 22,VT 500, FIO2 80%, PEEP OF 8, SATING AT 91%. OGT IN PLACE, PER NIGHT NURSE, WITH GASTRIC RESIDUAL BUT (-) AT THIS TIME. SINUS RHYTHM ON THE MONITOR WITH HR ON THE 70S. PATIENT SUCTIONED FOR AIRWAY PATENCY. HOB KEPT ELEVATED. SAFETY MEASURES OBSERVED AND MAINTAINED. BED IN LOW AND LOCKED POSITIONED. CALL LIGHT WITHIN REACH. WILL CONTINUE TO MONITOR PATIENT ACCORDINGLY
--- NOTE | 2019-10-29 08:30 | NUR ---
RN NOTES DR. LOWE AT THE UNIT. PATIENT WAS SEEN AND EXAMINED. INFORMED MD THAT LOVENOX WAS NOT GIVEN DUE TO PINK TINED URINE. 0531 DR. LOWE ALSO INFORMED THAT THE ASPIRATED GASTRIC RESIDUAL WAS BLOOD TINGED BUT MINIMAL IN AMOUNT. PER MD, KEEP PATIENT NPO AND RECHECK H AND H AT 2PM TODAY SINCE THE CURRENT HEMOGLOBIN IS OKAY
[2019-10-29] MEDS: PANTOPRAZOLE 40 MG TABLET.DR PO SCH (08:35)
[2019-10-29] MEDS: methylPREDNISolone SOD SUCC 125 MG/2ML VIAL IV SCH ×3 (08:35→16:46)
[2019-10-29] MEDS: POTASSIUM CL. PREMIX PERIPHER. 50 ML IV SCH ×4 (08:36→12:36)
[2019-10-29] MEDS: ENOXAPARIN SODIUM 80 MG/0.8 ML DISP.SYRIN SQ SCH ×2 (09:00→20:56)
--- NOTE | 2019-10-29 11:00 | NUR ---
RN NOTES WAS NOT ABLE TO OBTAIN CONSENT FROM THE PATIENT, PATIENT AGITATED AND RESTLESS WITHOUT SEDATION WITH ATTEMPTS TO PULL OUT TUBES, PATIENT PLACED BACK TO [facility] DR
[2019-10-29] MEDS: IV NS 0.9% 1,000 ML IV PRN (12:37)
--- NOTE | 2019-10-29 12:45 | NUR ---
RN NOTES CLARIFIED CT OF THE CHEST WITH CONTRAST ORDER WITH DR. BRIAN, RADIOLOGY DEPARTMENT SUGGEST PULMONARY CTA, PER DR. BRIAN OKAY TO DO WHICHEVER IS MORE APPROPRIATE TO RULE OUT PULMONARY EMBOLISM. CALLED ISHMAEL QUEVEDO () AT [phone] TO OBTAIN CONSENT BUT WAS NOT PICKED UP. WILL CALL AGAIN LATER. IN THE MEANTIME WILL TRY TO DO SEDATION VACATION IN HOPE TO OBTAINE CONSENT FROM THE PATIENT WHEN SHE IS MORE AWAKE. Addendum: 10/29/19 at 1250 by CATRACHO LUTHER RN ABOVE INTERVENTION WAS DONE AT EARLIER TIME, AROUND 0900 AM
--- NOTE | 2019-10-29 13:00 | NUR ---
RN NOTES TRIED TO CALL ISHMAEL PRECIADO ON THE NUMBER PROVIDED AT [phone] RO OBTAIN CONSENT FOR THE PULMONARY CT ANGIOGRAPY BUT SPOKE TO PEMA INSTEAD WHO CLAIMED THAT TAL AND ISHMAEL USED TO BE RESIDENTS AT THEIR FACILITY ( [facility]) BUT HAS LEFT YEARS AGO AND THAT SHE IS NOT AWARE ON WHERE THESE TWO RESIDE NOWADAYS. SHE WISHES NOT TO BE BOTHERED REGARDING THESE PEOPLE IN THE FUTURE
[2019-10-29] MEDS ORDERED: FEE PK DOSING 1 MIN EA MC ONE (15:19)
--- NOTE | 2019-10-29 17:30 | NUR ---
RN NOTES INFORMED DR. LOWE THAT PATIENT WITH 200CC COFFEE GROUND GASTRIC RESIDUAL ON ASPIRATING THE OGT, PER THE MD KEEP PATIENT NPO, HE WILL INFORM GI IN THE MORNING.
--- NOTE | 2019-10-29 19:00 | NUR ---
RN NOTES ENDORSED FOR CONTINUITY OF CARE. NO SIGNIFICANT CHANGES WITHIN THE SHIFT. NOT ON ANY FORM OF DISTRESS. PATIENT CALM, STILL SEDATED ON PROPOFOL AT 30MCG. NS ALSO RUNNING AT 125CC/HR. OGT CLAMPED. MONROY CATHETER IN PLACE DRAINING TO PINK TINGED URINE. SAFETY MEASURES IN PLACE. CALL LIGHT WITHIN REACH
--- NOTE | 2019-10-29 20:58 | NUR ---
TELECOM SPECIALIST NOTES PATIENT NOTED WITH COFFEE GROUND GASTRIC RESIDUALS, WELL SLIGHT HEMATURIA. BLOOD THINNERS HELD, WILL MONITOR
[2019-10-30] VITALS (23 sets, daily range): BP systolic 94–160; BP diastolic 63–98
[2019-10-30] MEDS: IPRATROPIUM NEB FS 0.5 MG/2.5 ML AMPUL.NEB NEB SCH ×4 (01:36→19:35)
[2019-10-30] MEDS: ALBUTEROL FS 2.5 MG/0.5 ML VIAL.NEB NEB SCH ×4 (01:36→19:35)
[2019-10-30] MEDS: IV NS 0.9% 1,000 ML IV PRN ×2 (01:55→11:53)
[2019-10-30] MEDS: PROPOFOL 100 ML IV PRN ×5 (03:46→20:00)
[2019-10-30 04:29] LABS: CALCIUM, SERUM 9.8 mg/dL (8.5-10.1); CREATININE 0.6 mg/dL (0.6-1.3); POTASSIUM 3.1 mmol/L (3.5-5.1)
[2019-10-30] MEDS: MEROPENEM 1 G in IV NS 0.9% 100 ML IV SCH ×3 (05:15→20:54)
--- NOTE | 2019-10-30 07:46 | NUR ---
WOUND CARE CONSULT: PT PRESENTS WITH INTACT SKIN, SOME DISCOLORATION OF KNEE AREAS, PRESENT ON ADMISSION. PT NOW INTUBATED WITH CURRENT ANNA SCORE OF 11. RECOMMENDATIONS MADE FOR SKIN PROTECTION. DISCUSSED WITH NURSING STAFF. FIRST STEP LOW AIRLOSS MATTRESS ON ORDER. WILL SEE PRN. HARVEY IN AGREEMENT WITH PLAN OF CARE. Addendum: 10/30/19 at 0748 by RADHA JAIN WNDNU Amended: Links added.
[2019-10-30] MEDS: VANCOMYCIN 1 GM in IV D5W 250 ML IV SCH (07:52)
[2019-10-30] MEDS ORDERED: Z GUARD REMEDY 2 OZ OINT TP PRN (08:00)
--- NOTE | 2019-10-30 08:00 | NUR ---
ICU/RN: INITIAL NOTES,AM RECEIVED BEDSIDE REPORT FROM NIGHT NURSE. PT SEDATED AND INTUBATED ETT 7.5/23 CM AT THE LIP, ON VENT SETTINGS ORDERED BY MD, NO S/S OF DISTRESS NOTED, LARGE AMOUNTS OF SECRETIONS NOTED. OGT IN PLACE, CLAMPED. MONORY CATH DRAINING YELLOW URINE. PT CURRENTLY NPO. RIGHT UPPER ARM MIDLINE PATENT AND INTACT. DIPRIVAN INFUSING AT 35 MCG/KG/MIN. IVF INFUSING ORDERED. ORDERS FOR CTPA PENDING, NO FAMILY TO GIVE CONSENT, WILL FOLLOW UP WITH MD. ALL NEEDS WILL BE ATTENDED TO, SAFETY MEASURES TAKEN, BED IN LOW POSITION, SIDE RAILS UP, CALL LIGHT WITHIN REACH. BILATERAL SOFT RESTRAINTS IN PLACE, ASSESSED PER PROTOCOL.
[2019-10-30] MEDS: PANTOPRAZOLE 40 MG TABLET.DR PO SCH (08:12)
[2019-10-30] MEDS: methylPREDNISolone SOD SUCC 125 MG/2ML VIAL IV SCH ×2 (08:13→12:26)
[2019-10-30] MEDS: POTASSIUM CL. PREMIX PERIPHER. 50 ML IV SCH ×4 (08:13→11:26)
[2019-10-30 08:49] LABS: ABG BASE EXCESS 1.9 mmol/L; ABG OXYGEN SATURATION 90.9 % (92.0-98.5); ABG PH 7.488 (7.350-7.450); ABG PO2 60.1 mmHg (75.0-100.0); AaDO2 331.4 mmHg; MetHb 0.9 % (0.0-1.5); O2Hb 90.1 % (94.0-97.0); SITE, ABG Left Radial; VENT MODE, BG AC 22 500 60% +8
[2019-10-30] MEDS: Z GUARD REMEDY 2 OZ OINT TP SCH (08:56)
--- NOTE | 2019-10-30 09:20 | NUR ---
ICU/RN: SEDATION VACATION STARTED AT 0900. PT OPENS EYES, FOLLOWS COMMANDS. WILL CONTINUE TO MONITOR.
[2019-10-30 09:27] LABS: BASOPHILS % (AUTO) 0.1 % (0.0-2.0); EOSINOPHILS % (AUTO) 0.2 % (0.0-6.0); HEMATOCRIT 49 % (33-45); HEMOGLOBIN 16.1 g/dL (11.5-14.8); LYMPHOCYTES # (AUTO) 0.9 /CMM (0.8-4.8); LYMPHOCYTES % (AUTO) 8.5 % (20.0-44.0); MEAN CORPUSCULAR HGB CONC 33 g/dl (31.0-36.0); MEAN CORPUSCULAR VOLUME 93 fL (82-100); MONOCYTES # (AUTO) 0.8 /CMM (0.1-1.30); MONOCYTES % (AUTO) 7.7 % (2.0-12.0); NEUTROPHILS # (AUTO) 8.5 /CMM (1.8-8.9); NEUTROPHILS % (AUTO) 83.5 % (43.0-81.0); PLATELET COUNT (AUTO) 261 /CMM (150-450); RED BLOOD CELL COUNT(AUTO) 5.21 MIL/uL (4.0-5.2); WHITE BLOOD COUNT (AUTO) 10.2 K/uL (4.3-11.0)
[2019-10-30] MEDS ORDERED: HYDROCORTISONE SOD SUCCINATE 100 MG/2 ML VIAL IV SCH (09:30)
[2019-10-30] MEDS ORDERED: VASOPRESSIN INJ 50 UNIT in IV D5W 497.5 ML IV PRN (09:30)
--- NOTE | 2019-10-30 09:30 | NUR ---
ICU/RN: CRITICAL LAB RECEIVED CALL FROM [id number], CORTISOL LEVEL 3.2. INFORMED. ORDERS FOR HYDROCORTISONE RECEIVED 100MG TID. WILL FOLLOW THROUGH.
--- NOTE | 2019-10-30 09:30 | NUR ---
ICU/RN: PT ALERT, OPENS EYES, FOLLOWS COMMANDS. PT NOTED TO BE AGITATED, WILL INCREASE PER PROTOCOL.
[2019-10-30] MEDS: ENOXAPARIN SODIUM 80 MG/0.8 ML DISP.SYRIN SQ SCH ×2 (10:00→20:55)
[2019-10-30] MEDS ORDERED: IOHEXOL-300 100 ML VIAL IV ONE (13:50)
--- NOTE | 2019-10-30 16:20 | NUR ---
ICU/RN: [address] SIGNED CONSENT FOR [address] PULMONARY ANGIOGRAM. PT TRANSPORTED TO CT WITH ACLS GUIDELINES. WILL CONTINUE CARE.
[2019-10-30] MEDS: HYDROCORTISONE SOD SUCCINATE 100 MG/2 ML VIAL IV SCH (16:47)
[2019-10-30] MEDS: VANCOMYCIN 0.75 GM in IV D5W 250 ML IV SCH (16:48)
--- NOTE | 2019-10-30 17:14 | NUR ---
RT PATIENT REMAINS ORALLY INTUBATED ON [facility] VENT WITH ORDERED SETTINGS. CONT CURRENT PLAN OF CARE Addendum: 10/30/19 at 1714 by YURIDIA ZAMUDIO RT Amended: Links added.
--- NOTE | 2019-10-30 19:36 | NUR ---
ICU/RN: ENDING NOTES,AM REPORT ENDORSED TO NIGHT NURSE. PT INTUBATED AND SEDATED. DIPRIVAN INFUSING FOR SEDATION. NO S/S OF DISTRESS NOTED. OGT IN PLACE, CLAMPED. MONROY CATH IN PLACE, DRAINING YELLOW URINE. SKIN INTACT, PT TURNED AND REPOSITIONED Q 2 HOURS AND NEEDED. BED BATH GIVEN, LINENS CHANGED. ALL NEEDS ATTENDED TO, SAFETY MEASURES TAKEN, BED IN LOW POSITION, SIDE RAILS UP, CALL LIGHT WITHIN REACH. WILL CONTINUE CARE.
--- NOTE | 2019-10-30 20:37 | NUR ---
RECEIVED PT INTUBATED ON VENT. 7.5 ETT SECUREA AT 24CM AT THE LIP. NO RESP DISTRESS. PT TOLERATING VENT SETTINGS. SX'D FOR SML AMT OF THIN WHITE SECRETIONS. VENT ALARMS SET AND AUDIBLE. AMBU BAG AT BEDSIDE. CONTINUE [facility] VENT SUPPORT. Addendum: 10/30/19 at 2038 by SUHA TALAMANTES RT Amended: Links added.
[2019-10-31] VITALS (24 sets, daily range): BP systolic 106–152; BP diastolic 68–99
[2019-10-31] MEDS: LEVOFLOXACIN 750 MG /D5W 150ML 750 MG in PREMIX 1 EA IV SCH ×2 (00:09→23:33)
[2019-10-31] MEDS: IV NS 0.9% 1,000 ML IV PRN ×4 (00:10→17:30)
[2019-10-31] MEDS: PROPOFOL 100 ML IV PRN ×8 (00:10→23:33)
[2019-10-31] MEDS: VANCOMYCIN 0.75 GM in IV D5W 250 ML IV SCH ×3 (01:51→16:12)
[2019-10-31 04:42] LABS: BASOPHILS % (AUTO) 0.2 % (0.0-2.0); HEMATOCRIT 48 % (33-45); HEMOGLOBIN 16.1 g/dL (11.5-14.8); LYMPHOCYTES # (AUTO) 1.1 /CMM (0.8-4.8); LYMPHOCYTES % (AUTO) 11.7 % (20.0-44.0); MEAN CORPUSCULAR HGB CONC 34 g/dl (31.0-36.0); MEAN CORPUSCULAR VOLUME 93 fL (82-100); MONOCYTES # (AUTO) 0.6 /CMM (0.1-1.30); MONOCYTES % (AUTO) 6.7 % (2.0-12.0); NEUTROPHILS # (AUTO) 7.4 /CMM (1.8-8.9); NEUTROPHILS % (AUTO) 81.4 % (43.0-81.0); PLATELET COUNT (AUTO) 238 /CMM (150-450); RED BLOOD CELL COUNT(AUTO) 5.16 MIL/uL (4.0-5.2); WHITE BLOOD COUNT (AUTO) 9.1 K/uL (4.3-11.0)
[2019-10-31 04:51] LABS: CALCIUM, SERUM 9.5 mg/dL (8.5-10.1); CREATININE 0.6 mg/dL (0.6-1.3)
[2019-10-31] MEDS: MEROPENEM 1 G in IV NS 0.9% 100 ML IV SCH ×3 (05:21→20:00)
--- NOTE | 2019-10-31 07:15 | NUR ---
HOISTING ENGINEER NOTES RECEIVED PATIENT SEDATED , NOT IN ACUTE DISTRESS , ON VENTILATOR SETTINGS ORDERED WITH SPO2 OF 100% , ETT 7.03/[address] , SR 60 ON BEDSIDE MONITOR , FC DRAINING VIA GRAVITY WITH CLEAR YELLOW URINE , OGT IN PLACE CLAMPED , MARIO MIDLINE PATENT AND INTACT WITH DIPRIVAN @ 45MCG/MIN/KG INFUSING WELL , IVF OF NS @ 125ML /HR INFUSING WELL , ALL NEEDS ATTENDED , BED ON LOW AND LOCKED POSITION , SIDE RAILS X2 , HOB @ 45 , WILL CONTINUE TO MONITOR
--- NOTE | 2019-10-31 07:41 | NUR ---
RT Pt received orally intubated on mechanical ventilation with noted settings. Vent is plugged into red outlet. No SOB or respiratory distress noted at this time. Addendum: 10/31/19 at 0840 by ZEYAD JENKINS RT Amended: Links added.
[2019-10-31] MEDS: POTASSIUM CL. PREMIX PERIPHER. 50 ML IV SCH ×5 (07:56→12:29)
--- NOTE | 2019-10-31 08:00 | NUR ---
HANGER OFF NOTES DIPRIVAN OFF FOR SEDATION VACATION , PT ON BILATERAL SOFT WRIST RESTRAINS , WILL CONTINUE TO MONITOR
[2019-10-31] MEDS: Z GUARD REMEDY 2 OZ OINT TP SCH (08:07)
[2019-10-31] MEDS: HYDROCORTISONE SOD SUCCINATE 100 MG/2 ML VIAL IV SCH ×3 (08:07→16:12)
[2019-10-31] MEDS: PANTOPRAZOLE 40 MG VIAL IV SCH (08:07)
[2019-10-31 08:12] LABS: ABG BASE EXCESS 1.5 mmol/L; ABG OXYGEN SATURATION 92.1 % (92.0-98.5); ABG PCO2 34.2 mmHg (35.0-45.0); ABG PH 7.472 (7.350-7.450); ABG PO2 63.9 mmHg (75.0-100.0); AaDO2 362.4 mmHg; MetHb 0.4 % (0.0-1.5); O2Hb 91.7 % (94.0-97.0); SITE, ABG Right Radial; VENT MODE, BG ac 16 500 65% +5
[2019-10-31] MEDS: ENOXAPARIN SODIUM 80 MG/0.8 ML DISP.SYRIN SQ SCH (08:28)
--- NOTE | 2019-10-31 08:51 | NUR ---
SPEECH COACH NOTES SEEN BY DR LOWE , NOTIFIED LABS , ABG WITH VENT SETTINGS ORDERED , PT OFF SEDATION ABLE TO FOLLOW COMMANDS , DISCUSSED IF HE WANTS TO CONTINUE LOVENOX DOSE CTA CHEST CAME BACK NEGATIVE FOR PULMONARY EMBOLISM PER MD START PT ON 40MG LOVENOX SQ DAILY , NOTIFIED THAT 80MG OF LOVENOX WAS GIVEN TO DAY , PER MD OK TO START TOMORROW , ORDERED DIETARY CONSULT FOR NGT / OGT FEEDING , ORDERS CARRIED OUT
--- NOTE | 2019-10-31 14:45 | NUR ---
AIR BREAKER OPERATOR NOTES CALLED DIETARY FOR [facility] , PER DIETARY CHANGE DINNER TO LUNCH SO THEY CAN ABLE TO SEND IT , DINNER CHANGED TO LUNCH
--- NOTE | 2019-10-31 16:24 | NUR ---
GAME AGENT NOTES CALLED [facility] FOR [facility] , PER DIETARY THEY WILL SEND IT NOW
[2019-10-31] MEDS: ACETYLCYSTEINE 10% SOLN 400 MG/4 ML VIAL NEB SCH ×2 (16:51→23:28)
--- NOTE | 2019-10-31 17:16 | NUR ---
TAXIMETER REPAIRER NOTES NOTIFIED DR LOWE THAT PT WILL BE STARTING OGT OF JEVITY @ 50ML/HR , PT ON NS @ 125ML/HR VERIFIED IF HE WANTS TO KEEP IVF RATE , PER MD KEEP NS @ 125/HR WITH OGT FEEDING
[2019-10-31] MEDS: JEVITY 1.2 CAL 1,000 ML BOTTLE GT PRN (17:24)
--- NOTE | 2019-10-31 17:51 | NUR ---
SAP CRM DEVELOPER NOTES READ THE NOTES OF DR LEVY , DISCUSSED THAT HE WANTS BRONCHODILATOR TO PT BUT NO ORDER , PER MD START PT ON ALBUTEROL 1.25 AND ATROVENT 0.5 Q6 , ORDERS CARRIED OUT
[2019-10-31] MEDS: IPRATROPIUM NEB FS 0.5 MG/2.5 ML AMPUL.NEB NEB SCH (20:02)
[2019-10-31] MEDS: ALBUTEROL HALF STRENGTH 1.25 MG/3 ML VIAL.NEB NEB SCH ×2 (20:02→23:28)
--- NOTE | 2019-10-31 21:30 | NUR ---
PRESCHOOL ASSISTANT DIRECTOR NOTES PATIENT'S SPO2 NOTED TO DROP TO 88%. RT ASHA AWARE. FIO2 INCREASED TO 90% BY RT. WILL CONTINUE CLOSE MONITORING
[2019-11-01] VITALS (26 sets, daily range): BP systolic 87–142; BP diastolic 58–90
[2019-11-01] MEDS: VANCOMYCIN 0.75 GM in IV D5W 250 ML IV SCH ×3 (01:22→18:34)
[2019-11-01] MEDS: IPRATROPIUM NEB FS 0.5 MG/2.5 ML AMPUL.NEB NEB SCH ×4 (01:39→19:57)
[2019-11-01] MEDS: PROPOFOL 100 ML IV PRN ×5 (03:27→20:31)
[2019-11-01 04:34] LABS: BASOPHILS % (AUTO) 0.2 % (0.0-2.0); EOSINOPHILS % (AUTO) 0.5 % (0.0-6.0); HEMATOCRIT 46 % (33-45); HEMOGLOBIN 15.7 g/dL (11.5-14.8); LYMPHOCYTES # (AUTO) 1.3 /CMM (0.8-4.8); LYMPHOCYTES % (AUTO) 16.9 % (20.0-44.0); MEAN CORPUSCULAR HGB CONC 34 g/dl (31.0-36.0); MEAN CORPUSCULAR VOLUME 93 fL (82-100); MONOCYTES # (AUTO) 0.5 /CMM (0.1-1.30); MONOCYTES % (AUTO) 6.6 % (2.0-12.0); NEUTROPHILS % (AUTO) 75.8 % (43.0-81.0); PLATELET COUNT (AUTO) 231 /CMM (150-450); RED BLOOD CELL COUNT(AUTO) 4.93 MIL/uL (4.0-5.2); WHITE BLOOD COUNT (AUTO) 7.9 K/uL (4.3-11.0)
[2019-11-01 04:49] LABS: CREATININE 0.6 mg/dL (0.6-1.3)
[2019-11-01] MEDS: IV NS 0.9% 1,000 ML IV PRN ×2 (04:58→14:47)
[2019-11-01 05:03] LABS: POTASSIUM 2.8 mmol/L (3.5-5.1)
[2019-11-01] MEDS: MEROPENEM 1 G in IV NS 0.9% 100 ML IV SCH ×3 (05:12→21:58)
--- NOTE | 2019-11-01 05:45 | NUR ---
COMBER FIXER NOTES FIO2 TITRATED TO 70% BY RT ASHA, PATIENT TOLERATING WELL AT THIS TIME, WILL MONITOR CLOSELY
[2019-11-01] MEDS: POTASSIUM CL. PREMIX PERIPHER. 50 ML IV SCH ×5 (06:32→12:53)
--- NOTE | 2019-11-01 07:00 | NUR ---
VACUUM BOTTLE ASSEMBLER CLOSING NOTES PATIENT RESTING IN BED, COMFORTABLE AT THIS TIME, SEDATED ON DIPRIVAN @ 40MCG, ONGOING POTASSIUM CHLORIDE BOLUS OF TOTAL 40 MEQ, 1ST BAG CURRENTLY INFUSING, SITE FREE FROM ANY S/S OF INFILTRATION OR PHLEBITIS. PATIENT REMAINS ORALLY INTUBATED ON MECHANICAL VENTILATION, FIO2 @ 70%
--- NOTE | 2019-11-01 07:30 | NUR ---
RN NOTE: Received patient in bed, intubated and sedated with ETT 7.5 and attached on the lip line at 23 cm. Respiration even and unlabored saturating 91-95%. No s/s of discomfort or pain. HOB elevated. OGT feeding of Jevity 1.2 @50ml/hr and no residual noted. (R) UA PICC line with 3 lumens infusing Diprivan @40mcg/min and NS @125ml/hr. Yarbrough catheter in placed with yellow urine draining to gravity. As endorsed by Tony, ALGOLOGIST to continue the potassium replacement per Dexter [place] NP. Bed alarmed and locked at all times. Low bed at all times. Needs anticipated. Frequent suctioning was rendered. Will f/u with the hospitalist for the morning.
[2019-11-01] MEDS: ACETYLCYSTEINE 10% SOLN 400 MG/4 ML VIAL NEB SCH ×2 (08:09→15:37)
[2019-11-01] MEDS: ALBUTEROL HALF STRENGTH 1.25 MG/3 ML VIAL.NEB NEB SCH ×3 (08:09→19:57)
[2019-11-01] MEDS ORDERED: POTASSIUM CHLORIDE 20 MEQ TAB.PRT.SR PO ONE (08:30)
--- NOTE | 2019-11-01 08:50 | NUR ---
RN NOTE: Dr. Singh was at the bedside and clarified with him the order for the potassium chloride replacements. Per MD, he wanted to keep the orders that he wrote, KCl 50meq with K-dur 40meq via OGT x1. Called and spoke with Tessa, pharmacist regarding the order of Dr. Singh.
[2019-11-01] MEDS: PANTOPRAZOLE 40 MG VIAL IV SCH (08:53)
[2019-11-01] MEDS: ENOXAPARIN SODIUM 40 MG/0.4 ML DISP.SYRIN SQ SCH (08:59)
[2019-11-01] MEDS: HYDROCORTISONE SOD SUCCINATE 100 MG/2 ML VIAL IV SCH ×3 (08:59→17:18)
[2019-11-01] MEDS: Z GUARD REMEDY 2 OZ OINT TP SCH (09:00)
[2019-11-01] MEDS ORDERED: POTASSIUM CL. PREMIX PERIPHER. 50 ML IV SCH (09:00)
[2019-11-01 09:03] LABS: ABG BASE EXCESS 1.5 mmol/L; ABG OXYGEN SATURATION 89.2 % (92.0-98.5); ABG PCO2 34.5 mmHg (35.0-45.0); AaDO2 334.9 mmHg; COHb 0.4 % (0.5-1.5); MetHb 0.3 % (0.0-1.5); O2Hb 88.6 % (94.0-97.0); SITE, ABG Left Radial; VENT MODE, BG AC 16 500 60% +5
--- NOTE | 2019-11-01 12:49 | NUR ---
RN NOTE: Reported to Dr. Singh regarding the triglycerides 585 and per MD wade to continue the Diprivan order. Called and spoke with [facility] pharmacist regarding Dr. Singh's order. No changes on the Diprivan order.
--- NOTE | 2019-11-01 19:40 | NUR ---
RN NOTE: Bedside report was given to SILVIA Naranjo for continuity of care. Patient remained intubated and was saturating 96% on fio2 65%. OGT feeding of Jevity 1.2 @50ml/hr was well tolerated. Will continue to monitor the patient.
--- NOTE | 2019-11-01 19:58 | NUR ---
PT RECEIVED ORALLY INTUBATED WITH 7.5 ETT SECURED @24 CM @ THE LIP ON [facility] VENT WITH NOTED SETTINGS PER MD ORDER. VENT PLUGGED INTO RED OUTLET. ALARMS ON AND AUDIBLE. BREATHING TX'S GIVEN ORDERED. NO ADVERSE REACTIONS NOTED. SUCTIONED AND MONITORED PRN. NO SOB NOTED AT THIS TIME. WILL CONTINUE TO MONITOR FOR ANY CHANGES.
--- NOTE | 2019-11-01 20:00 | NUR ---
RN NOTES RECEIVED BEDSIDE REPORT FROM AM RN. PATIENT IS ORALLY INTUBATED WITH 7.5 ETT SECURED @24 CM @ THE [facility] ON [facility] VENT WITH NOTED SETTINGS PER MD ORDER. VENT PLUGGED INTO RED OUTLET. ALARMS ON AND AUDIBLE. BREATHING TX'S GIVEN ORDERED. NO ADVERSE REACTIONS NOTED. SUCTIONED AND MONITORED PRN. NO SOB NOTED AT THIS TIME. IV LINES ARE PATIENT AND INTACT WITH IVF ORDERED. ALL SAFETY MEASURES ARE IN PLACE, CALL LIGHT IN REACH. WILL CONTINUE TO MONITOR FOR ANY CHANGES.
[2019-11-01 21:14] LABS: CHLORIDE,URINE RANDOM 87 mmol/L (55-125); POTASSIUM RNDM,URINE 62 mmol/L (25-125); URINE SODIUM, RANDOM 20 mmol/l (40-220)
[2019-11-01 21:26] LABS: OSMOLALITY,URINE 508 mOS/kg (340-1090)
[2019-11-01] MEDS: LEVOFLOXACIN 750 MG /D5W 150ML 750 MG in PREMIX 1 EA IV SCH (23:07)
[2019-11-01] MEDS: JEVITY 1.2 CAL 1,000 ML BOTTLE GT PRN (23:31)
[2019-11-02] VITALS (26 sets, daily range): BP systolic 97–133; BP diastolic 40–78
[2019-11-02] MEDS: ACETYLCYSTEINE 10% SOLN 400 MG/4 ML VIAL NEB SCH ×4 (00:29→23:40)
[2019-11-02] MEDS: IPRATROPIUM NEB FS 0.5 MG/2.5 ML AMPUL.NEB NEB SCH ×4 (00:30→19:59)
[2019-11-02] MEDS: ALBUTEROL HALF STRENGTH 1.25 MG/3 ML VIAL.NEB NEB SCH ×4 (00:30→19:59)
[2019-11-02] MEDS: VANCOMYCIN 0.75 GM in IV D5W 250 ML IV SCH ×3 (00:48→16:25)
[2019-11-02] MEDS: PROPOFOL 100 ML IV PRN ×7 (02:07→22:59)
[2019-11-02 04:37] LABS: BASOPHILS % (AUTO) 0.1 % (0.0-2.0); EOSINOPHILS % (AUTO) 1.6 % (0.0-6.0); HEMATOCRIT 42 % (33-45); LYMPHOCYTES # (AUTO) 1.3 /CMM (0.8-4.8); LYMPHOCYTES % (AUTO) 18.7 % (20.0-44.0); MEAN CORPUSCULAR HGB CONC 33 g/dl (31.0-36.0); MEAN CORPUSCULAR VOLUME 94 fL (82-100); MONOCYTES # (AUTO) 0.5 /CMM (0.1-1.30); NEUTROPHILS # (AUTO) 4.9 /CMM (1.8-8.9); NEUTROPHILS % (AUTO) 72.6 % (43.0-81.0); PLATELET COUNT (AUTO) 201 /CMM (150-450); RED BLOOD CELL COUNT(AUTO) 4.49 MIL/uL (4.0-5.2); WHITE BLOOD COUNT (AUTO) 6.8 K/uL (4.3-11.0)
[2019-11-02 04:49] LABS: CALCIUM, SERUM 8.7 mg/dL (8.5-10.1); CARBON DIOXIDE 26 mmol/L (21-32); CHLORIDE 106 mmol/L (98-107); CREATININE 0.4 mg/dL (0.6-1.3); GLUCOSE 120 mg/dL (74-106); POTASSIUM 3.1 mmol/L (3.5-5.1); SODIUM SERUM 140 mmol/L (136-145); UREA NITROGEN, BLOOD 15 mg/dL (7-18)
[2019-11-02] MEDS: MEROPENEM 1 G in IV NS 0.9% 100 ML IV SCH ×3 (04:52→20:19)
--- NOTE | 2019-11-02 06:50 | NUR ---
RN NOTES PATIENT IS ORALLY INTUBATED WITH 7.5 ETT SECURED @24 CM @ THE L[facility] ON [facility] VENT WITH NOTED SETTINGS PER MD ORDER. VENT PLUGGED INTO RED OUTLET. ALARMS ON AND AUDIBLE. BREATHING TX'S GIVEN ORDERED. NO ADVERSE REACTIONS NOTED. SUCTIONED AND MONITORED PRN. NO SOB NOTED DURING MY SHIFT.. IV LINES ARE PATIENT AND INTACT WITH IVF AND PROPOFOL DRIP AT 40MCG. ALL SAFETY MEASURES ARE IN PLACE, CALL LIGHT IN REACH. WILL ENDORSE TO AN RN FOR DEVELOPMENTAL SERVICES WORKER.
[2019-11-02] MEDS ORDERED: POTASSIUM CHLORIDE 20 MEQ TAB.PRT.SR PO ONE (08:00)
[2019-11-02] MEDS: Z GUARD REMEDY 2 OZ OINT TP SCH (08:01)
[2019-11-02] MEDS: PANTOPRAZOLE 40 MG VIAL IV SCH (08:07)
[2019-11-02] MEDS: HYDROCORTISONE SOD SUCCINATE 100 MG/2 ML VIAL IV SCH ×3 (08:07→16:24)
[2019-11-02] MEDS: POTASSIUM CL. PREMIX PERIPHER. 50 ML IV SCH ×5 (08:07→13:05)
[2019-11-02] MEDS: ENOXAPARIN SODIUM 40 MG/0.4 ML DISP.SYRIN SQ SCH (08:09)
[2019-11-02 08:38] LABS: ABG BASE EXCESS 1.7 mmol/L; ABG PCO2 38.5 mmHg (35.0-45.0); ABG PH 7.442 (7.350-7.450); ABG PO2 65.6 mmHg (75.0-100.0); COHb 0.3 % (0.5-1.5); MetHb 0.8 % (0.0-1.5); SITE, ABG Left Brachial
--- NOTE | 2019-11-02 09:11 | NUR ---
received pt from car shifter, calmly sedated on Diprivan at 40mcg, some agitation noted, SR, on the vent, intubated, lungs congested, BL hand and foot edema, OG to feeding tolerates well, f/c good output, restraints on, v/s stable, no pain, pt turned and repositioned, seen by Dr. Bunch.
[2019-11-02] MEDS: IV NS 0.9% 1,000 ML IV PRN (16:08)
--- NOTE | 2019-11-02 16:21 | NUR ---
pt is resting in the bed, calmly sedated on Diprivan at 50mcg, SR, tolerates feeding, f/c good output, v/s stable, no pain, pt cleaned, changed and repositioned.
[2019-11-02] MEDS: JEVITY 1.2 CAL 1,000 ML BOTTLE GT PRN (16:28)
[2019-11-02] MEDS ORDERED: POTASSIUM CL. PREMIX PERIPHER. 50 ML IV SCH (17:30)
--- NOTE | 2019-11-02 20:00 | NUR ---
CUSTODIAL OFFICER - NOTES - RECEIVED PATIENT ORALLY INTUBATED WITH 7.5 ETT SECURED @24 CM @ THE LIP ON [facility] VENT WITH NOTED SETTINGS PER MD ORDER. VENT PLUGGED INTO RED OUTLET. ALARMS ON AND AUDIBLE. BREATHING TX'S GIVEN ORDERED. NO ADVERSE REACTIONS NOTED. SUCTIONED AND MONITORED PRN. NO SOB NOTED AT THIS TIME. IV LINES ARE PATIENT AND INTACT WITH IVF ORDERED. ALL SAFETY MEASURES ARE IN PLACE, CALL LIGHT IN REACH. WILL CONTINUE TO MONITOR FOR ANY CHANGES.
[2019-11-02] MEDS: LEVOFLOXACIN (750 MG) 750 MG TABLET GT SCH (22:55)
[2019-11-03] VITALS (24 sets, daily range): BP systolic 85–142; BP diastolic 53–83
[2019-11-03] MEDS: VANCOMYCIN 0.75 GM in IV D5W 250 ML IV SCH ×3 (00:21→16:34)
[2019-11-03] MEDS: ALBUTEROL HALF STRENGTH 1.25 MG/3 ML VIAL.NEB NEB SCH ×4 (01:59→19:39)
[2019-11-03] MEDS: IPRATROPIUM NEB FS 0.5 MG/2.5 ML AMPUL.NEB NEB SCH ×4 (01:59→19:38)
[2019-11-03 05:03] LABS: CALCIUM, SERUM 9.1 mg/dL (8.5-10.1); CARBON DIOXIDE 30 mmol/L (21-32); CHLORIDE 104 mmol/L (98-107); CREATININE 0.4 mg/dL (0.6-1.3); GLUCOSE 119 mg/dL (74-106); POTASSIUM 3.4 mmol/L (3.5-5.1); SODIUM SERUM 139 mmol/L (136-145); UREA NITROGEN, BLOOD 13 mg/dL (7-18)
[2019-11-03] MEDS: MEROPENEM 1 G in IV NS 0.9% 100 ML IV SCH ×3 (05:49→21:28)
--- NOTE | 2019-11-03 06:46 | NUR ---
RT PT RECEIVED ORALLY INTUBATED ON [facility] VENT WITH NOTED SETTING. ETT PATENT AND SECURE VIA ANCHOR FAST. OCCUPATIONAL THERAPY DEPARTMENT CHAIR NOTED. VENT ALARMS SET AND AUDIBLE. VENT TO RED OUTLET. NO SOB OR DISTRESS NOTED ON SHIFT. PT TOLERATING VENT SETTING WELL. CONTINUE CURRENT CARE AND MONITOR FOR ANY CHANGES. Addendum: 11/03/19 at 0647 by KANA BARRIENTOS RT Amended: Links added.
[2019-11-03] MEDS: PROPOFOL 100 ML IV PRN ×4 (07:01→21:28)
[2019-11-03] MEDS: ACETYLCYSTEINE 10% SOLN 400 MG/4 ML VIAL NEB SCH ×2 (07:57→13:19)
--- NOTE | 2019-11-03 08:36 | NUR ---
received pt from night clerk, calmly sedated on Diprivan at 50mcg, SR, intubated, lungs congested, BL foot and hand edema, OG to feeding tolerates well, f/c good output, restraints on, v/s stable, no pain, pt turned and repositioned.
[2019-11-03] MEDS: POTASSIUM CL. PREMIX PERIPHER. 50 ML IV SCH ×5 (08:42→13:07)
[2019-11-03] MEDS: PANTOPRAZOLE 40 MG VIAL IV SCH (08:42)
[2019-11-03] MEDS: ENOXAPARIN SODIUM 40 MG/0.4 ML DISP.SYRIN SQ SCH (08:43)
[2019-11-03] MEDS: Z GUARD REMEDY 2 OZ OINT TP SCH (08:43)
[2019-11-03] MEDS: HYDROCORTISONE SOD SUCCINATE 100 MG/2 ML VIAL IV SCH ×3 (09:00→16:34)
[2019-11-03 09:13] LABS: ABG BASE EXCESS 6.8 mmol/L; ABG OXYGEN SATURATION 92.7 % (92.0-98.5); ABG PCO2 39.6 mmHg (35.0-45.0); ABG PH 7.503 (7.350-7.450); ABG PO2 60.4 mmHg (75.0-100.0); AaDO2 287.7 mmHg; COHb 0.3 % (0.5-1.5); MetHb 0.3 % (0.0-1.5); O2Hb 92.1 % (94.0-97.0); PEEP,BG 5 cm H2O; SITE, ABG Left Brachial; VT, ABG 500 mL
--- NOTE | 2019-11-03 10:36 | NUR ---
FIO2 INCREASED FROM 55% TO 60% DUE TO 92% SPO2 Addendum: 11/03/19 at 1036 by ELMIRA CENTENO RT Amended: Links added.
--- NOTE | 2019-11-03 11:36 | NUR ---
PLACED BACK TO 55% FIO2 PER DR. LEVY. Addendum: 11/03/19 at 1136 by ELMIRA CENTENO RT Amended: Links added.
--- NOTE | 2019-11-03 12:30 | NUR ---
sedation vacation: pt calm and cooperative on 50mcg, follows simple commands.
[2019-11-03] MEDS: JEVITY 1.2 CAL 1,000 ML BOTTLE GT PRN (15:24)
--- NOTE | 2019-11-03 16:27 | NUR ---
pt is resting in the bed, sedated on Diprivan at 50mcg, SR, tolerates feeding, good urine output, v/s stable, no pain, pt cleaned, changed and repositioned q2hrs.
--- NOTE | 2019-11-03 19:39 | NUR ---
PT RECEIVED ORALLY INTUBATED WITH 7.5 ETT SECURED @24 CM @ THE LIP ON [facility] VENT WITH NOTED SETTINGS PER MD ORDER. VENT PLUGGED INTO RED OUTLET. ALARMS ON AND AUDIBLE. BREATHING TX'S GIVEN ORDERED. NO ADVERSE REACTIONS NOTED. SUCTIONED AND MONITORED PRN. NO SOB NOTED AT THIS TIME. WILL CONTINUE TO MONITOR FOR ANY CHANGES.
[2019-11-03] MEDS: LEVOFLOXACIN (750 MG) 750 MG TABLET GT SCH (23:00)
[2019-11-04] VITALS (36 sets, daily range): BP systolic 77–144; BP diastolic 48–80
[2019-11-04] MEDS: PROPOFOL 100 ML IV PRN ×6 (00:34→18:39)
[2019-11-04] MEDS: ALBUTEROL HALF STRENGTH 1.25 MG/3 ML VIAL.NEB NEB SCH ×5 (00:35→23:43)
[2019-11-04] MEDS: IPRATROPIUM NEB FS 0.5 MG/2.5 ML AMPUL.NEB NEB SCH ×5 (00:35→23:43)
[2019-11-04] MEDS: ACETYLCYSTEINE 10% SOLN 400 MG/4 ML VIAL NEB SCH ×4 (00:35→23:43)
[2019-11-04] MEDS: VANCOMYCIN 0.75 GM in IV D5W 250 ML IV SCH ×3 (00:48→17:04)
[2019-11-04] MEDS: MEROPENEM 1 G in IV NS 0.9% 100 ML IV SCH ×3 (05:19→20:07)
--- NOTE | 2019-11-04 05:44 | NUR ---
RN NOTES PATIENT IS ORALLY INTUBATED WITH 7.5 ETT SECURED @24 CM @ THE LIP ON [facility] VENT WITH NOTED SETTINGS PER MD ORDER. VENT PLUGGED INTO RED OUTLET. ALARMS ON AND AUDIBLE. BREATHING TX'S GIVEN ORDERED. NO ADVERSE REACTIONS NOTED. SUCTIONED AND MONITORED PRN. NO SOB NOTED DURING MY SHIFT. IV LINES ARE PATIENT AND INTACT WITH IVF AND PROPOFOL DRIP AT 50MCG. ALL SAFETY MEASURES ARE IN PLACE, CALL LIGHT IN REACH. WILL ENDORSE TO AM RN FOR ROLLER LEVELER OPERATOR.
[2019-11-04 05:45] LABS: CARBON DIOXIDE 31 mmol/L (21-32); CHLORIDE 104 mmol/L (98-107); CREATININE 0.4 mg/dL (0.6-1.3); GLUCOSE 107 mg/dL (74-106); POTASSIUM 3.5 mmol/L (3.5-5.1); SODIUM SERUM 141 mmol/L (136-145); UREA NITROGEN, BLOOD 12 mg/dL (7-18)
[2019-11-04] MEDS: PANTOPRAZOLE 40 MG VIAL IV SCH (08:09)
[2019-11-04] MEDS: HYDROCORTISONE SOD SUCCINATE 100 MG/2 ML VIAL IV SCH ×3 (08:10→17:04)
[2019-11-04] MEDS: Z GUARD REMEDY 2 OZ OINT TP SCH (08:11)
[2019-11-04] MEDS: ENOXAPARIN SODIUM 40 MG/0.4 ML DISP.SYRIN SQ SCH (08:12)
--- NOTE | 2019-11-04 09:08 | NUR ---
received pt from nightclub manager, calmly sedated on Diprivan at 50mcg, SR, intubated, lungs congested, pink tinged sputum, edema present, OG to feeding tolerates well, f/c good urine output, restraints on, v/s stable, no pain, pt turned and repositioned.
[2019-11-04 09:13] LABS: ABG BASE EXCESS 6.9 mmol/L; ABG OXYGEN SATURATION 92.5 % (92.0-98.5); ABG PCO2 43.2 mmHg (35.0-45.0); ABG PH 7.477 (7.350-7.450); ABG PO2 61.6 mmHg (75.0-100.0); AaDO2 282.5 mmHg; COHb 0.3 % (0.5-1.5); MetHb 0.2 % (0.0-1.5); PEEP,BG 5 cm H2O; SITE, ABG Left Radial; VT, ABG 500 mL
[2019-11-04] MEDS: JEVITY 1.2 CAL 1,000 ML BOTTLE GT PRN (11:44)
--- NOTE | 2019-11-04 16:40 | NUR ---
pt is resting in the bed, SR, sedated on Diprivan at 50mcg, tolerates feeding, good urine output, v/s stable, no pain, pt cleaned, changed and repositioned q2hrs.
--- NOTE | 2019-11-04 18:24 | NUR ---
RT END OF THE SHIFT REPORT Pt. rec. 74 year old female @ 0700 AM pt. orally intubated ETT # 7.0 @ 24 CM ( T/O day, adjusted ETT @ 22 CM upper lip line per Dr. Bunch order pulled back 2-2.5 cm ) on ventilator with noted settings. Vent alarms are set and audible with Ambu bag by bedside. FRONT OF HOUSE MANAGER cuff pressure done, HME changed. Vent is plugged into red outlet. T/O day ABG done, FIO2 titrated to 40%. TX'S given q6 inline no adverse reaction noted. Bilaterally rhonchi b/s noted and sux'd for large amount of red/pinky secretions, ( cold saline used to reduce bleeding ) end of the shift no more reddish secretions. Equal chest rise noted. pt. stable and continue to monitor. Report will pass to PM shift. Addendum: 11/04/19 at 1830 by CORINE POOLE RT Amended: Links added.
--- NOTE | 2019-11-04 19:24 | NUR ---
JEWELLERY DESIGNER OPENING NOTE RECEIVED BEDSIDE REPORT. PT RECEIVED ORALLY INTUBATED WITH 7.5 ETT SECURED @23 CM @ [facility] ON [facility], TOLERATING SETTINGS WELL, NO SIGNS OF RESPIRATORY DISTRESS NOTED. SINUS RHYTHM ON MONITOR. MONROY CATHETER INTACT, PATENT, DRAINING CLEAR YELLOW URINE. OGT INFUSING AT 50ML/HR, TOLERATING FEEDING WELL. RIGHT UPPER ARM MIDLINE WITH TKO AND PROPOPHOLE INFUSING AT 30MCG/MIN. BED IN LOW POSITION, LOCKED, HOB ELEVATED, WILL CONTINUE TO MONITOR CLOSELY.
--- NOTE | 2019-11-04 20:30 | NUR ---
RECEIVED PT INTUBATED ON VENT, 7.5 ETT SECURED AT 22CM AT THE LIP. PT IS AWAKE NO RESP DISTRESS NOTED. TOLERATING VENT SETTINGS. SX'D AND LAVAGED FOR SML AMT OF THIN WHITE SECRETIONS. VENT ALARMS SET AND AUDIBLE. AMBU BAG AT BEDSIDE. CONTINUE [facility] VENT SUPPORT. Addendum: 11/04/19 at 2031 by SUHA TALAMANTES RT Amended: Links added.
[2019-11-04] MEDS: LEVOFLOXACIN (750 MG) 750 MG TABLET GT SCH (22:20)
[2019-11-05] VITALS (25 sets, daily range): BP systolic 86–146; BP diastolic 47–81
[2019-11-05] MEDS: VANCOMYCIN 0.75 GM in IV D5W 250 ML IV SCH ×2 (00:20→08:05)
[2019-11-05] MEDS: PROPOFOL 100 ML IV PRN ×5 (01:23→22:10)
[2019-11-05] MEDS: MEROPENEM 1 G in IV NS 0.9% 100 ML IV SCH ×3 (04:14→20:20)
[2019-11-05 04:54] LABS: BASOPHILS % (AUTO) 0.2 % (0.0-2.0); EOSINOPHILS % (AUTO) 1.3 % (0.0-6.0); HEMATOCRIT 41 % (33-45); HEMOGLOBIN 13.8 g/dL (11.5-14.8); LYMPHOCYTES # (AUTO) 1.7 /CMM (0.8-4.8); LYMPHOCYTES % (AUTO) 22.1 % (20.0-44.0); MEAN CORPUSCULAR HGB CONC 34 g/dl (31.0-36.0); MEAN CORPUSCULAR VOLUME 92 fL (82-100); MONOCYTES # (AUTO) 0.8 /CMM (0.1-1.30); NEUTROPHILS % (AUTO) 66.4 % (43.0-81.0); PLATELET COUNT (AUTO) 243 /CMM (150-450); RED BLOOD CELL COUNT(AUTO) 4.45 MIL/uL (4.0-5.2); WHITE BLOOD COUNT (AUTO) 7.6 K/uL (4.3-11.0)
[2019-11-05 05:05] LABS: CARBON DIOXIDE 33 mmol/L (21-32); CHLORIDE 103 mmol/L (98-107); CREATININE 0.4 mg/dL (0.6-1.3); GLUCOSE 116 mg/dL (74-106); SODIUM SERUM 142 mmol/L (136-145); UREA NITROGEN, BLOOD 15 mg/dL (7-18)
[2019-11-05 05:10] LABS: TRIGLYCERIDES 317 mg/dL (30-150)
--- NOTE | 2019-11-05 06:51 | NUR ---
REGISTRATION REP CLOSING NOTE PT INTUBATED WITH 7.5 ETT SECURED @24 CM @ [facility], TOLERATING SETTINGS WELL, NO SIGNS OF RESPIRATORY DISTRESS NOTED. SINUS RHYTHM ON MONITOR. MONROY CATHETER INTACT, PATENT, DRAINING CLEAR YELLOW URINE. OGT INFUSING AT 50ML/HR, TOLERATING FEEDING WELL. RIGHT UPPER ARM MIDLINE WITH TKO AND PROPOFOLE INFUSING AT 30MCG/MIN. PROVIDED SAFETY AND COMFORT TO PT THROUGHOUT SHIFT, ALL DUE MEDS GIVEN, TURNED AND REPOSITIONED EVERY 2 HOURS. BILATERAL SOFT WRIST RESTRAINTS CHECKED FOR CIRCULATION, SKIN INTEGRITY AND PULSES. BED IN LOW POSITION, LOCKED, HOB ELEVATED, WILL ENDORSE TO AM NURSE FOR JOANN.
--- NOTE | 2019-11-05 07:15 | NUR ---
RN INITIAL NOTES RECEIVED PT INTUBATED, SEDATED. NO RESPIRATORY DISTRESS NOTED. NO SOB NOTED. NO SIGNS OF PAIN NOTED. ON DIPRIVAN AT 30MCG/KG/MIN. MARIO MIDLINE IN PLACE. OG IN PLACE. TOLERATING GTF WELL. FC IN PLACE. NO HEMATURIA NOTED. KEPT COMFORTABLE. BLE ELEVATED. WILL CLOSELY MONITOR
[2019-11-05] MEDS: ACETYLCYSTEINE 10% SOLN 400 MG/4 ML VIAL NEB SCH ×3 (07:32→23:14)
[2019-11-05] MEDS: IPRATROPIUM NEB FS 0.5 MG/2.5 ML AMPUL.NEB NEB SCH ×4 (07:32→23:14)
[2019-11-05] MEDS: ALBUTEROL HALF STRENGTH 1.25 MG/3 ML VIAL.NEB NEB SCH ×4 (07:32→23:14)
[2019-11-05] MEDS: Z GUARD REMEDY 2 OZ OINT TP SCH (08:05)
[2019-11-05] MEDS: HYDROCORTISONE SOD SUCCINATE 100 MG/2 ML VIAL IV SCH ×2 (08:05→16:09)
[2019-11-05] MEDS: PANTOPRAZOLE 40 MG VIAL IV SCH (08:05)
[2019-11-05] MEDS: ENOXAPARIN SODIUM 40 MG/0.4 ML DISP.SYRIN SQ SCH (08:06)
[2019-11-05] MEDS: POTASSIUM CL. PREMIX PERIPHER. 50 ML IV SCH ×5 (08:30→12:35)
[2019-11-05 09:17] LABS: ABG BASE EXCESS 7.1 mmol/L; ABG OXYGEN SATURATION 89.7 % (92.0-98.5); ABG PCO2 41.6 mmHg (35.0-45.0); ABG PH 7.492 (7.350-7.450); ABG PO2 55.4 mmHg (75.0-100.0); AaDO2 254.3 mmHg; MetHb 0.5 % (0.0-1.5); O2Hb 89.3 % (94.0-97.0); PEEP,BG 5 cm H2O; SITE, ABG Left Radial; VT, ABG 500 mL
[2019-11-05 10:55] LABS: ABG BASE EXCESS 6.7 mmol/L; ABG OXYGEN SATURATION 89.8 % (92.0-98.5); ABG PCO2 36.6 mmHg (35.0-45.0); ABG PH 7.526 (7.350-7.450); ABG PO2 52.1 mmHg (75.0-100.0); AaDO2 299.3 mmHg; COHb 0.4 % (0.5-1.5); MetHb 0.3 % (0.0-1.5); O2Hb 89.2 % (94.0-97.0); PEEP,BG 5 cm H2O; SITE, ABG Left Radial; VENT MODE, BG CPAP PS15
--- NOTE | 2019-11-05 11:00 | NUR ---
RN NOTES 0900 SEEN AND EXAMINED BY DR LEVY. PT OFF SEDATION, A/O, FOLLOWS SIMPLE COMMANDS. WILL PLACE ON CPAP THEN ABG ORDERED. WILL CLOSELY MONITOR 1000 SEEN AND EXAMINED BY DR LOWE. AWARE OF LATEST LAB VALUES AND CXR RESULT. ORDERED POTASSIUM REPLACEMENT. TOLERATING GTF WELL. WILL MONITOR 1100 ABG RESULT RELAYED TO DR LEVY. ORDERED TO PLACE BACK ON AC MODE. WILL TRY CIPAP MODE IN AM. PT HAS NO RESPIRATORY DISTRESS NOTED. NO SOB NOTED. WILL CLOSELY MONITOR
[2019-11-05] MEDS: JEVITY 1.2 CAL 1,000 ML BOTTLE GT PRN (11:08)
--- NOTE | 2019-11-05 18:34 | NUR ---
RT END OF THE SHIFT REPORT Pt. rec. 74 year old female @ 0700 AM pt. orally intubated ETT # 7.0 @ 22 CM alert and responsive on ventilator with noted settings. Vent alarms are set and audible with Ambu bag by bedside. INVESTIGATOR INTERNAL REVENUE cuff pressure done, HME changed. Vent is plugged into red outlet. TX'S given Q6 inline no adverse reaction noted. post 1st ABG per Dr. Bunch FIO2 titrated to 55%. (@ 0930 pt. placed on SBT CPAP TRAIL FOR 1 HR ) ABG'S done (@ 1100 pt. placed back on AC mode per Dr. Bunch ) Bilaterally rhonchi b/s noted and sux'd for moderate amount of clear secretions. Equal chest rise noted. pt. stable and continue to monitor. Pt. will be weaning ( SBT ) tomorrow 11/06/19 @ [address] Bunch. Report will pass to PM shift. Addendum: 11/05/19 at 1843 by CORINE POOLE RT Amended: Links added.
--- NOTE | 2019-11-05 18:37 | NUR ---
RN CLOSING NOTES NO SIGNIFICANT CHANGE NOTED. REMAINS INTUBATED. NO RESPIRATORY DISTRESS NOTED. PT ON DIPRIVAN TITRATED ACCORDINGLY. TOLERATING GTF WELL. FC IN PLACE. KEPT CLEAN AND DRY. REPOSITIONED Q2. BLE ELEVATED. PT COMFORTABLE. WILL ENDORSE FOR CONTINUITY OF CARE.
[2019-11-05] MEDS: LEVOFLOXACIN (750 MG) 750 MG TABLET GT SCH (23:18)
[2019-11-06] VITALS (35 sets, daily range): BP systolic 99–143; BP diastolic 40–78
[2019-11-06] MEDS: MEROPENEM 1 G in IV NS 0.9% 100 ML IV SCH ×3 (04:29→20:32)
[2019-11-06] MEDS: PROPOFOL 100 ML IV PRN (04:30)
[2019-11-06 04:38] LABS: BASOPHILS % (AUTO) 0.2 % (0.0-2.0); HEMATOCRIT 41 % (33-45); HEMOGLOBIN 13.8 g/dL (11.5-14.8); LYMPHOCYTES # (AUTO) 1.9 /CMM (0.8-4.8); LYMPHOCYTES % (AUTO) 25.7 % (20.0-44.0); MEAN CORPUSCULAR HGB CONC 34 g/dl (31.0-36.0); MEAN CORPUSCULAR VOLUME 93 fL (82-100); MONOCYTES # (AUTO) 0.7 /CMM (0.1-1.30); NEUTROPHILS # (AUTO) 4.8 /CMM (1.8-8.9); NEUTROPHILS % (AUTO) 64.1 % (43.0-81.0); PLATELET COUNT (AUTO) 257 /CMM (150-450); RED BLOOD CELL COUNT(AUTO) 4.38 MIL/uL (4.0-5.2); WHITE BLOOD COUNT (AUTO) 7.5 K/uL (4.3-11.0)
[2019-11-06 04:50] LABS: CALCIUM, SERUM 9.1 mg/dL (8.5-10.1); CARBON DIOXIDE 34 mmol/L (21-32); CHLORIDE 105 mmol/L (98-107); CREATININE 0.5 mg/dL (0.6-1.3); GLUCOSE 118 mg/dL (74-106); SODIUM SERUM 143 mmol/L (136-145); UREA NITROGEN, BLOOD 18 mg/dL (7-18)
--- NOTE | 2019-11-06 07:05 | NUR ---
RN NOTES RECEIVED PT ON BED, INTUBATED, SEDATED, TOLERATING CURRENT VENT SETTING WELL, ON TELE SR-SB HR IN 60'S MONROY DRAINING TO GRAVITY, R UPPER ARM MIDLINE SITE CLEAN, DRY AND INTACT WITH DIPRIVAN AT 30MCG/KG/MIN RUNNING , OJ TUBE FEEDING AT 50CC/HR RUNNING , NO RESIDUAL NOTED, SR UP x3, CALL LIGHT WITHIN EASY REACH, BED LOCKED AND IN LOWEST POSITION, CONTINUE TO MONITOR .
[2019-11-06] MEDS: IPRATROPIUM NEB FS 0.5 MG/2.5 ML AMPUL.NEB NEB SCH ×4 (07:38→23:29)
[2019-11-06] MEDS: ACETYLCYSTEINE 10% SOLN 400 MG/4 ML VIAL NEB SCH ×3 (07:38→23:29)
[2019-11-06] MEDS: ALBUTEROL HALF STRENGTH 1.25 MG/3 ML VIAL.NEB NEB SCH ×4 (07:38→23:29)
[2019-11-06] MEDS ORDERED: DC PROPOFOL WHEN EXTUBATED XX PRN (08:00)
[2019-11-06] MEDS: POTASSIUM CL. PREMIX PERIPHER. 50 ML IV SCH ×5 (08:14→13:26)
[2019-11-06] MEDS: PANTOPRAZOLE 40 MG VIAL IV SCH (08:14)
[2019-11-06] MEDS: ENOXAPARIN SODIUM 40 MG/0.4 ML DISP.SYRIN SQ SCH (08:15)
[2019-11-06] MEDS: HYDROCORTISONE SOD SUCCINATE 100 MG/2 ML VIAL IV SCH ×3 (08:15→16:53)
[2019-11-06] MEDS: Z GUARD REMEDY 2 OZ OINT TP SCH (08:16)
[2019-11-06] MEDS: JEVITY 1.2 CAL 1,000 ML BOTTLE GT PRN (08:29)
[2019-11-06 09:23] LABS: ABG BASE EXCESS 7.6 mmol/L; ABG OXYGEN SATURATION 89.3 % (92.0-98.5); ABG PH 7.495 (7.350-7.450); ABG PO2 54.4 mmHg (75.0-100.0); AaDO2 254.9 mmHg; COHb 0.3 % (0.5-1.5); MetHb 0.4 % (0.0-1.5); O2Hb 88.7 % (94.0-97.0); PEEP,BG 5 cm H2O; SITE, ABG Left Radial; VENT MODE, BG CPAP PS15
--- NOTE | 2019-11-06 09:40 | NUR ---
RN NOTES DR LEVY NOTIFED REGARDING ABG RESULTS ,PT EXTUBATED PER DR BERNALEG ORDER . PT PLACED ON 60% FIO2 AND 50 L O2 , ON FELIPE FLOW OXYGEN PER DR BERNALEG ORDER . CONTINUE TO MONITOR .
[2019-11-06] MEDS ORDERED: FUROSEMIDE 40 MG/4 ML VIAL IV ONE (10:00)
[2019-11-06] MEDS: MAGNESIUM HYDROXIDE 30 ML UDC PO PRN (14:22)
--- NOTE | 2019-11-06 14:22 | NUR ---
RN NOTES PT C/O CONSTIPATION, DR LOWE NOTIFED, MOM PO GIVEN PER MD ORDER .
--- NOTE | 2019-11-06 18:00 | NUR ---
RN NOTES PT STABLE, ON HIGH FLOW O2 , O2 SAT WNL, NO DISTRESS NOTED, VSS STABLE, SR UP X3, CALL LIGHT WITHIN EASY REACH, BED LOCKED AND IN LOWEST POSITION, WILL ENDORSE TO PATTERNMAKER APPRENTICE WOOD NURSE FOR CONTINUITY OF CARE .
--- NOTE | 2019-11-06 18:17 | NUR ---
RT END OF THE SHIFT REPORT, Pt. rec. 74 year old female @0700 AM pt. orally intubated ETT # 7.5 @ 22 cm lip line on ventilator with noted settings. Vent alarms are set and audible with Ambu bag by bedside. DIRECTOR BIOSTATISTICS cuff pressure done. Vent is plugged into red outlet. bilaterally rales B/S noted and sux'd for minimal amount of CLEAR secretions, @ 0805 placed on CPAP SBT trail and post ABG done @0940 pt. extubated, and placed on high flow N/C FIO2 60%/ 50 LPM equal chest rise noted. pt. stable and continue to monitor. no stridor noted. report will pass to PM shift. Addendum: 11/06/19 at 1822 by CORINE POOLE RT Amended: Links added.
--- NOTE | 2019-11-06 20:00 | NUR ---
RECOVERY RN - NOTES - PT STABLE, ON HIGH FLOW O2 , O2 SAT WNL, NO DISTRESS NOTED, VSS STABLE, SR UP X3, CALL LIGHT WITHIN EASY REACH, BED LOCKED AND IN LOWEST POSITION, WILL ENDORSE TO EDITOR NEWS NURSE FOR CONTINUITY OF CARE .
[2019-11-06] MEDS ORDERED: LEVOFLOXACIN (250MG) 250 MG TABLET GT SCH (23:00)
[2019-11-07] VITALS (24 sets, daily range): BP systolic 102–143; BP diastolic 50–87
[2019-11-07] MEDS: MEROPENEM 1 G in IV NS 0.9% 100 ML IV SCH ×3 (04:22→21:12)
[2019-11-07 04:53] LABS: BASOPHILS % (AUTO) 0.3 % (0.0-2.0); EOSINOPHILS % (AUTO) 1.4 % (0.0-6.0); HEMATOCRIT 40 % (33-45); HEMOGLOBIN 13.6 g/dL (11.5-14.8); LYMPHOCYTES # (AUTO) 2.2 /CMM (0.8-4.8); LYMPHOCYTES % (AUTO) 28.3 % (20.0-44.0); MEAN CORPUSCULAR HGB CONC 34 g/dl (31.0-36.0); MEAN CORPUSCULAR VOLUME 92 fL (82-100); MONOCYTES # (AUTO) 0.6 /CMM (0.1-1.30); MONOCYTES % (AUTO) 7.7 % (2.0-12.0); NEUTROPHILS # (AUTO) 4.8 /CMM (1.8-8.9); NEUTROPHILS % (AUTO) 62.3 % (43.0-81.0); PLATELET COUNT (AUTO) 255 /CMM (150-450); RED BLOOD CELL COUNT(AUTO) 4.33 MIL/uL (4.0-5.2); WHITE BLOOD COUNT (AUTO) 7.7 K/uL (4.3-11.0)
[2019-11-07 04:54] LABS: CALCIUM, SERUM 9.1 mg/dL (8.5-10.1); CARBON DIOXIDE 36 mmol/L (21-32); CHLORIDE 104 mmol/L (98-107); CREATININE 0.4 mg/dL (0.6-1.3); GLUCOSE 89 mg/dL (74-106); SODIUM SERUM 143 mmol/L (136-145); UREA NITROGEN, BLOOD 18 mg/dL (7-18)
--- NOTE | 2019-11-07 07:05 | NUR ---
RN NOTES RECEIVED PT ON BED,A/Ox3, ON HIGH FLOW O2 , O2 SAT 94% , ON TELE SR-SB, HR IN 60'S , MONROY DRAINING TO GRAVITY, R UPPER ARM MIDLINE SITE CLEAN ,DRY AND INTACT, SR UP x3, CALL LIGHT WITHIN EASY REACH, BED LOCKED AND IN LOWEST POSITION, CONTINUE TO MONITOR .
[2019-11-07] MEDS: ACETYLCYSTEINE 10% SOLN 400 MG/4 ML VIAL NEB SCH ×3 (07:41→23:38)
[2019-11-07] MEDS: IPRATROPIUM NEB FS 0.5 MG/2.5 ML AMPUL.NEB NEB SCH ×4 (07:42→23:38)
[2019-11-07] MEDS: ALBUTEROL HALF STRENGTH 1.25 MG/3 ML VIAL.NEB NEB SCH ×4 (07:42→23:39)
--- NOTE | 2019-11-07 07:52 | NUR ---
WOUND CARE CONSULT: PT NOT SEEN YET FOR SKIN ASSESSMENT DUE TO PT SLEEPING SOUNDLY AT THIS TIME. PER RN, PT JUST FELL ASLEEP. RAISED LESIONS NOTED TO RT BUTTOCK IN PHOTO DOCUMENTATION. RN TO DISCUSS WITH MD. WILL SEE PT AT LATER TIME FOR SKIN ASSESSMENT. DISCUSSED SKIN PROTECTION WITH NURSING STAFF.
[2019-11-07] MEDS: POTASSIUM CL. PREMIX PERIPHER. 50 ML IV SCH ×5 (08:10→17:12)
[2019-11-07] MEDS: HYDROCORTISONE SOD SUCCINATE 100 MG/2 ML VIAL IV SCH ×3 (08:12→17:12)
[2019-11-07] MEDS: PANTOPRAZOLE 40 MG VIAL IV SCH (08:12)
[2019-11-07] MEDS: ENOXAPARIN SODIUM 40 MG/0.4 ML DISP.SYRIN SQ SCH (08:13)
[2019-11-07] MEDS: Z GUARD REMEDY 2 OZ OINT TP SCH (08:14)
--- NOTE | 2019-11-07 09:45 | NUR ---
RN NOTES REPORT GIVEN TO DANG VEGA FOR CONTINUITY OF CARE .
--- NOTE | 2019-11-07 11:51 | NUR ---
WOUND CARE: PT EATING AT THIS TIME. WILL SEE PT PT CONDITION PERMITS FOR SKIN ASSESSMENT.
[2019-11-07 13:28] LABS: ABG BASE EXCESS 9.3 mmol/L; ABG OXYGEN SATURATION 92.2 % (92.0-98.5); ABG PCO2 42.4 mmHg (35.0-45.0); ABG PH 7.513 (7.350-7.450); ABG PO2 59.8 mmHg (75.0-100.0); AaDO2 321.4 mmHg; COHb 0.3 % (0.5-1.5); MetHb 0.4 % (0.0-1.5); O2Hb 91.6 % (94.0-97.0); SITE, ABG Right Radial; VENT MODE, BG High Flow 50L 60%
[2019-11-07] MEDS ORDERED: LEVOFLOXACIN (750 MG) 750 MG TABLET GT SCH (13:51)
--- NOTE | 2019-11-07 14:00 | NUR ---
ICU/RN AFTERNOON ROUNDS PT ON HIGH-FLOW, SATURATING WELL, NO SOB NOTED. ON GOING MONITORING.
[2019-11-07] MEDS: ACETAMINOPHEN 325 MG TABLET PO PRN (14:21)
--- NOTE | 2019-11-07 19:38 | NUR ---
ICU/RN AM SHIFT END NOTES ALL NEEDS MET. NO ACUTE CHANGE OF CONDITION NOTED SINCE PT'S CARE WAS ENDORSED TO ME LATER IN THE MORNING. PT ON HIGH FLOW, MONROY CATHETER INTACT AND IV SITE PATENT WITH NO S/S OF INFECTION. PT ENDORSED TO PM NURSE TO CONTINUE CARE. CL WITHIN REACHED AND SAFETY MAINTAINED
[2019-11-07] MEDS: LEVOFLOXACIN (250MG) 250 MG TABLET GT SCH (23:15)
[2019-11-08] VITALS (25 sets, daily range): BP systolic 80–187; BP diastolic 43–90
[2019-11-08 04:41] LABS: BASOPHILS # (AUTO) 0.1 /CMM (0.0-0.2); BASOPHILS % (AUTO) 0.7 % (0.0-2.0); EOSINOPHILS % (AUTO) 1.1 % (0.0-6.0); HEMATOCRIT 43 % (33-45); HEMOGLOBIN 14.8 g/dL (11.5-14.8); LYMPHOCYTES # (AUTO) 2.2 /CMM (0.8-4.8); LYMPHOCYTES % (AUTO) 26.6 % (20.0-44.0); MEAN CORPUSCULAR HGB CONC 35 g/dl (31.0-36.0); MEAN CORPUSCULAR VOLUME 92 fL (82-100); MONOCYTES # (AUTO) 0.6 /CMM (0.1-1.30); MONOCYTES % (AUTO) 7.8 % (2.0-12.0); NEUTROPHILS # (AUTO) 5.2 /CMM (1.8-8.9); NEUTROPHILS % (AUTO) 63.8 % (43.0-81.0); PLATELET COUNT (AUTO) 157 /CMM (150-450); RED BLOOD CELL COUNT(AUTO) 4.67 MIL/uL (4.0-5.2); WHITE BLOOD COUNT (AUTO) 8.2 K/uL (4.3-11.0)
[2019-11-08] MEDS: MEROPENEM 1 G in IV NS 0.9% 100 ML IV SCH ×3 (05:00→21:19)
[2019-11-08 05:01] LABS: CALCIUM, SERUM 9.4 mg/dL (8.5-10.1); CARBON DIOXIDE 35 mmol/L (21-32); CHLORIDE 104 mmol/L (98-107); CREATININE 0.4 mg/dL (0.6-1.3); GLUCOSE 92 mg/dL (74-106); POTASSIUM 3.2 mmol/L (3.5-5.1); SODIUM SERUM 143 mmol/L (136-145); UREA NITROGEN, BLOOD 16 mg/dL (7-18)
--- NOTE | 2019-11-08 07:00 | NUR ---
CREDIT CONTROL MANAGER NOTES RECEIVED REPORT FROM SECONDARY MARKET MANAGER. PT A/O X3 NO S/S OF RESPIRATORY DISTRESS ON HIGH FLOW OXYGEN 50LTRS TOLERATING WELL. NO C/O PAIN NOTED. SINUS ON MONITOR MONROY CATH DRAINING CLEAR YELLOW URINE MARIO MIDLINE RUNNING TKO FLUSHING WELL. REPOSITIONS SELF IN BED ON KCI MATTRESS. SAFETY AND ASPIRATION PRECAUTIONS IN PLACE BED LOW LOCKED POSITION . CALL LIGHT WITHIN REACH
[2019-11-08] MEDS: IPRATROPIUM NEB FS 0.5 MG/2.5 ML AMPUL.NEB NEB SCH ×3 (07:35→19:35)
[2019-11-08] MEDS: ALBUTEROL HALF STRENGTH 1.25 MG/3 ML VIAL.NEB NEB SCH ×3 (07:35→19:35)
[2019-11-08] MEDS: ACETYLCYSTEINE 10% SOLN 400 MG/4 ML VIAL NEB SCH ×2 (07:35→12:58)
--- NOTE | 2019-11-08 07:39 | NUR ---
WOUND CARE CONSULT: PT SEEN FOR RAISED RED LESIONS TO BILATERAL OUTER BUTTOCKS, UNKNOWN ETIOLOGY. DEFER TO MD. RN TO DISCUSS WITH MD TODAY. WILL SEE PRN.
[2019-11-08] MEDS: PANTOPRAZOLE 40 MG VIAL IV SCH (09:21)
[2019-11-08] MEDS: HYDROCORTISONE SOD SUCCINATE 100 MG/2 ML VIAL IV SCH ×2 (09:21→16:58)
[2019-11-08] MEDS: ENOXAPARIN SODIUM 40 MG/0.4 ML DISP.SYRIN SQ SCH (09:27)
[2019-11-08] MEDS: Z GUARD REMEDY 2 OZ OINT TP SCH (09:28)
[2019-11-08] MEDS ORDERED: POTASSIUM CHLORIDE 20 MEQ TAB.PRT.SR PO ONE (10:00)
[2019-11-08] MEDS ORDERED: LORAZEPAM INJ 2 MG/ML VIAL IV PRN (12:30)
--- NOTE | 2019-11-08 12:42 | NUR ---
TELEPHONE ORDER FROM [facility] CLONAZEPAM 2MG/PO PRN Q8HR AND ZOLOFT 50MG PO QHS. ONE TIME ORDER ATIVAN 0.5MG IVP
[2019-11-08] MEDS ORDERED: IV NS 0.9% 250 ML IV PRN (13:00)
[2019-11-08] MEDS: clonazePAM 1 MG TABLET PO PRN (13:56)
--- NOTE | 2019-11-08 14:27 | NUR ---
bedbath given oral care rendered
--- NOTE | 2019-11-08 18:17 | NUR ---
SCIENTIFIC PROGRAMMER NOTES PT REMAINED STABLE AND AFEBRILE THROUGHOUT THE SHIFT.NO S/S OF RESPIRATORY DISTRESS CONT ON HIGH FLOW O2 @50 LTRS. A/O X3-4 WITH SOME EPISODES OF CONFUSION. SINUS ON MONITOR GENERALIZED EDEMA .MONROY CATH DRAINING TO GRAVITY CLEAR YELLOW URINE . MARIO PICC RUNNING NS TKO. SAFETY AND ASPIRATION PRECAUTIONS IN PLACE BED IN LOW LOCKED POSITION CALL LIGHT WITHIN REACH.WILL ENDORSE TO NOC
--- NOTE | 2019-11-08 19:31 | NUR ---
REPORT ENDORSED TO NOC
[2019-11-08] MEDS: SERTRALINE HCL 50 MG TABLET PO SCH (22:11)
[2019-11-08] MEDS: LEVOFLOXACIN (250MG) 250 MG TABLET GT SCH (22:52)
[2019-11-09] VITALS (25 sets, daily range): BP systolic 84–163; BP diastolic 44–82
[2019-11-09] MEDS: ACETYLCYSTEINE 10% SOLN 400 MG/4 ML VIAL NEB SCH ×3 (01:16→14:01)
[2019-11-09] MEDS: ALBUTEROL HALF STRENGTH 1.25 MG/3 ML VIAL.NEB NEB SCH ×4 (01:16→19:32)
[2019-11-09] MEDS: IPRATROPIUM NEB FS 0.5 MG/2.5 ML AMPUL.NEB NEB SCH ×4 (01:16→19:32)
[2019-11-09] MEDS: MEROPENEM 1 G in IV NS 0.9% 100 ML IV SCH ×3 (05:05→20:18)
[2019-11-09 05:09] LABS: BASOPHILS % (AUTO) 0.5 % (0.0-2.0); HEMATOCRIT 39 % (33-45); HEMOGLOBIN 13.3 g/dL (11.5-14.8); LYMPHOCYTES # (AUTO) 1.9 /CMM (0.8-4.8); LYMPHOCYTES % (AUTO) 26.2 % (20.0-44.0); MEAN CORPUSCULAR HGB CONC 34 g/dl (31.0-36.0); MEAN CORPUSCULAR VOLUME 93 fL (82-100); MONOCYTES # (AUTO) 0.5 /CMM (0.1-1.30); MONOCYTES % (AUTO) 7.7 % (2.0-12.0); NEUTROPHILS # (AUTO) 4.6 /CMM (1.8-8.9); NEUTROPHILS % (AUTO) 64.6 % (43.0-81.0); PLATELET COUNT (AUTO) 254 /CMM (150-450); WHITE BLOOD COUNT (AUTO) 7.1 K/uL (4.3-11.0)
[2019-11-09 05:30] LABS: CALCIUM, SERUM 9.1 mg/dL (8.5-10.1); CARBON DIOXIDE 35 mmol/L (21-32); CHLORIDE 105 mmol/L (98-107); CREATININE 0.4 mg/dL (0.6-1.3); GLUCOSE 89 mg/dL (74-106); SODIUM SERUM 144 mmol/L (136-145); UREA NITROGEN, BLOOD 16 mg/dL (7-18)
[2019-11-09 05:51] LABS: POTASSIUM 2.8 mmol/L (3.5-5.1)
--- NOTE | 2019-11-09 07:15 | NUR ---
INSULATION APPLICATOR NOTES RECEIVED REPORT FROM OCCUPATIONAL THER. PT A/O X3 NO S/S OF RESPIRATORY DISTRESS ON HIGH FLOW OXYGEN 60LTRS@ 80% TOLERATING WELL. NO C/O PAIN NOTED. SINUS ON MONITOR MONROY CATH DRAINING CLEAR YELLOW URINE MARIO MIDLINE RUNNING TKO FLUSHING WELL. REPOSITIONS SELF IN BED ON KCI MATTRESS. SAFETY AND ASPIRATION PRECAUTIONS IN PLACE BED LOW LOCKED POSITION . CALL LIGHT WITHIN REACH
--- NOTE | 2019-11-09 07:45 | NUR ---
NEW ORDERS PER MD LOWE K+ 2.8 REPLACE WITH K+ IVP 40MEQ
[2019-11-09] MEDS ORDERED: POTASSIUM CL. PREMIX PERIPHER. 50 ML IV SCH (08:00)
--- NOTE | 2019-11-09 08:42 | NUR ---
DUPLICATE ORDERS FOR K+ REPLACEMENT VERIFIED WITH MD BLAKE D/I IVP AND GIVE PO
[2019-11-09] MEDS: Z GUARD REMEDY 2 OZ OINT TP SCH (08:45)
[2019-11-09] MEDS: PANTOPRAZOLE 40 MG VIAL IV SCH (08:45)
[2019-11-09] MEDS: HYDROCORTISONE SOD SUCCINATE 100 MG/2 ML VIAL IV SCH ×2 (08:45→16:50)
[2019-11-09] MEDS: ENOXAPARIN SODIUM 40 MG/0.4 ML DISP.SYRIN SQ SCH (08:52)
[2019-11-09] MEDS ORDERED: POTASSIUM CHLORIDE 20 MEQ TAB.PRT.SR PO SCH (09:00)
[2019-11-09 09:19] LABS: ABG BASE EXCESS 9.3 mmol/L; ABG OXYGEN SATURATION 90.4 % (92.0-98.5); ABG PCO2 45.8 mmHg (35.0-45.0); ABG PH 7.488 (7.350-7.450); ABG PO2 56.9 mmHg (75.0-100.0); AaDO2 465.4 mmHg; COHb 0.3 % (0.5-1.5); MetHb 0.6 % (0.0-1.5); O2Hb 89.6 % (94.0-97.0); SITE, ABG Right Radial; VENT MODE, BG HIGH FLOW NC 80%
--- NOTE | 2019-11-09 09:32 | NUR ---
RADHA DRAWN NO NEW ORDERS PER DR LEVY
[2019-11-09] MEDS: clonazePAM 1 MG TABLET PO PRN (10:00)
[2019-11-09] MEDS: ACETAMINOPHEN 325 MG TABLET PO PRN ×2 (11:17→20:18)
--- NOTE | 2019-11-09 12:01 | NUR ---
BED BATH AND ORAL CARE PROVIDED PT RESTING COMFORTABLE
[2019-11-09 13:06] LABS: RENIN, PLASMA 0.431 ng/mL/hr (0.167-5.380)
--- NOTE | 2019-11-09 14:30 | NUR ---
T/O READ BACK FROM DR LOWE TO START PT BACK ON HOME MEDS CITALOPRAM 10 MG/PO DAILY AND OXYBUTYNIN 5 MG BID
[2019-11-09] MEDS: MAGNESIUM HYDROXIDE 30 ML UDC PO PRN (14:49)
[2019-11-09] MEDS: CITALOPRAM HYDROBROMIDE 20 MG TABLET PO SCH (15:02)
[2019-11-09] MEDS: OXYBUTYNIN CHLORIDE 5 MG TABLET PO SCH (16:50)
--- NOTE | 2019-11-09 19:18 | NUR ---
FIREMAN NOTES PT REMAINED STABLE AND AFEBRILE THROUGHOUT THE SHIFT.NO S/S OF RESPIRATORY DISTRESS CONT ON HIGH FLOW O2 @55 LTRS. A/O X3-4 WITH SOME EPISODES OF CONFUSION. SINUS ON MONITOR GENERALIZED EDEMA .MONROY CATH DRAINING TO GRAVITY CLEAR YELLOW URINE . MARIO PICC RUNNING NS TKO. SAFETY AND ASPIRATION PRECAUTIONS IN PLACE BED IN LOW LOCKED POSITION CALL LIGHT WITHIN REACH.WILL ENDORSE TO NOC
--- NOTE | 2019-11-09 19:20 | NUR ---
RN OPENING NOTES RECEIVED BEDSIDE REPORT FROM AM RN. PATIENT AWAKE, A/OX3. NO SOB OR S/S OF RESPIRATORY DISTRESS. ON HIGH FLOW OXYGEN 55LTRS@80% TOLERATING WELL, SATURATING 90-92% AT THE MOMENT. C/O GENERALIZED PAIN AND REQUESTING FOR PAIN MEDICATION, WILL GIVE PRN PAIN MEDICATION. SINUS RHYTHM ON MONITOR WITH HR 70'S. MONROY CATH NOTED DRAINING CLEAR YELLOW URINE. MARIO MIDLINE RUNNING TKO, FLUSHING WELL, SITE C/D/I. REPOSITIONS SELF IN BED ON KCI MATTRESS. SAFETY AND ASPIRATION PRECAUTIONS IN PLACE; BED IS LOW AND IN LOCKED POSITION, CALL LIGHT WITHIN REACH. WILL CONT TO MONITOR CLOSELY.
[2019-11-09] MEDS: SERTRALINE HCL 50 MG TABLET PO SCH (22:26)
[2019-11-09] MEDS: LEVOFLOXACIN (250MG) 250 MG TABLET GT SCH (23:18)
[2019-11-10] VITALS (21 sets, daily range): BP systolic 104–171; BP diastolic 41–138
[2019-11-10] MEDS: ACETYLCYSTEINE 10% SOLN 400 MG/4 ML VIAL NEB SCH ×4 (00:31→23:30)
[2019-11-10] MEDS: IPRATROPIUM NEB FS 0.5 MG/2.5 ML AMPUL.NEB NEB SCH ×4 (00:31→19:19)
[2019-11-10] MEDS: ALBUTEROL HALF STRENGTH 1.25 MG/3 ML VIAL.NEB NEB SCH ×4 (00:31→19:19)
[2019-11-10] MEDS: ACETAMINOPHEN 325 MG TABLET PO PRN (02:41)
[2019-11-10 05:01] LABS: BASOPHILS % (AUTO) 0.3 % (0.0-2.0); EOSINOPHILS % (AUTO) 1.3 % (0.0-6.0); HEMATOCRIT 37 % (33-45); HEMOGLOBIN 12.8 g/dL (11.5-14.8); LYMPHOCYTES # (AUTO) 1.8 /CMM (0.8-4.8); LYMPHOCYTES % (AUTO) 27.4 % (20.0-44.0); MEAN CORPUSCULAR HGB CONC 34 g/dl (31.0-36.0); MEAN CORPUSCULAR VOLUME 92 fL (82-100); MONOCYTES # (AUTO) 0.5 /CMM (0.1-1.30); MONOCYTES % (AUTO) 7.4 % (2.0-12.0); NEUTROPHILS # (AUTO) 4.2 /CMM (1.8-8.9); NEUTROPHILS % (AUTO) 63.6 % (43.0-81.0); PLATELET COUNT (AUTO) 252 /CMM (150-450); RED BLOOD CELL COUNT(AUTO) 4.04 MIL/uL (4.0-5.2); WHITE BLOOD COUNT (AUTO) 6.6 K/uL (4.3-11.0)
[2019-11-10] MEDS: MEROPENEM 1 G in IV NS 0.9% 100 ML IV SCH ×2 (05:10→13:04)
[2019-11-10 05:16] LABS: CALCIUM, SERUM 8.9 mg/dL (8.5-10.1); CARBON DIOXIDE 35 mmol/L (21-32); CHLORIDE 105 mmol/L (98-107); CREATININE 0.4 mg/dL (0.6-1.3); GLUCOSE 98 mg/dL (74-106); MAGNESIUM 1.9 mg/dL (1.8-2.4); PHOSPHORUS 2.1 mg/dL (2.5-4.9); POTASSIUM 2.9 mmol/L (3.5-5.1); SODIUM SERUM 142 mmol/L (136-145); UREA NITROGEN, BLOOD 14 mg/dL (7-18)
--- NOTE | 2019-11-10 05:45 | NUR ---
RN NOTES PATIENT VERY ANXIOUS AND REQUESTING FOR ANXIETY MEDICATION AND STATED "I WANT MY ANXIETY MEDICATION KLONOPIN" WILL ADMINISTER PRN KLONOPIN.
[2019-11-10] MEDS: clonazePAM 1 MG TABLET PO PRN ×2 (05:58→13:48)
--- NOTE | 2019-11-10 07:00 | NUR ---
RN CLOSING NOTES PATIENT SLEEPING IN BED, BUT EASY TO AROUSE VIA TOUCH. NO SOB OR S/S OF RESPIRATORY DISTRESS. ON HIGH FLOW OXYGEN 55LTRS@80% TOLERATING WELL, SATURATING 97% AT THE MOMENT. SINUS JOSE ALEJANDRO ON MONITOR WITH HR 50'S. PER EXPLOSIVE OPERATOR FUSE HR WENT DOWN TO 39 FOR A COUPLE OF SECONDS, CHARGE NURSE MADE AWARE AND STATED TO REPORT TO AM RN THAT IT WAS NONSUSTAINED, RENDERED INFORMATION TO AM RN. MONROY CATH NOTED DRAINING CLEAR YELLOW URINE. MARIO MIDLINE RUNNING TKO, FLUSHING WELL, SITE C/D/I. REPOSITIONS SELF IN BED ON KCI MATTRESS. SAFETY AND ASPIRATION PRECAUTIONS IN PLACE; BED IS LOW AND IN LOCKED POSITION, CALL LIGHT WITHIN REACH. ENDORSED TO AM RN FOR JOANN.
--- NOTE | 2019-11-10 07:45 | NUR ---
FEDERAL APPELLATE CLERK:pt is sleepy, reactive by touch, rest, no SOB, O2sat. over 95% on n/c 55L high flow/FiO2 71%, SB around 50 now, MD is aware by report, lowest was 39, SBP over 100, K+2.9/MD notified
[2019-11-10 08:12] LABS: ABG OXYGEN SATURATION 98.2 % (92.0-98.5); ABG PCO2 37.3 mmHg (35.0-45.0); ABG PH 7.549 (7.350-7.450); AaDO2 398.8 mmHg; COHb 0.2 % (0.5-1.5); MetHb 0.4 % (0.0-1.5); O2Hb 97.6 % (94.0-97.0); SITE, ABG Right Radial; VENT MODE, BG high flow 78% 55lpm
[2019-11-10] MEDS: POTASSIUM CL. PREMIX PERIPHER. 50 ML IV SCH ×5 (08:26→13:05)
[2019-11-10] MEDS: PANTOPRAZOLE 40 MG VIAL IV SCH (08:26)
--- NOTE | 2019-11-10 08:30 | NUR ---
OPERATIONS PROGRAM MANAGER: pH 7.54, pCO2 37, pO2 118, bicarb 31, updated, ordered 6L n/c, RT notified
[2019-11-10] MEDS ORDERED: POTASSIUM PHOSPHATE MM 15 MMOL in IV D5W 250 ML IV SCH (09:00)
--- NOTE | 2019-11-10 09:30 | NUR ---
LEHR STRIPPER: is in room, updated with pt.current status, VS, resp., neurostatus, I/O, labs, meds, going to speak with SW
[2019-11-10] MEDS: HYDROCORTISONE SOD SUCCINATE 100 MG/2 ML VIAL IV SCH ×2 (09:47→16:32)
[2019-11-10] MEDS: OXYBUTYNIN CHLORIDE 5 MG TABLET PO SCH ×2 (09:48→16:32)
[2019-11-10] MEDS: CITALOPRAM HYDROBROMIDE 20 MG TABLET PO SCH (09:48)
[2019-11-10] MEDS: POTASSIUM CHLORIDE 20 MEQ TAB.PRT.SR PO SCH ×2 (09:49→16:31)
[2019-11-10] MEDS: ENOXAPARIN SODIUM 40 MG/0.4 ML DISP.SYRIN SQ SCH (09:50)
[2019-11-10] MEDS: Z GUARD REMEDY 2 OZ OINT TP SCH (09:50)
[2019-11-10] MEDS: POTASSIUM PHOSPHATE MM 7.5 MMOL in IV D5W 100 ML IV SCH ×2 (09:51→12:15)
--- NOTE | 2019-11-10 10:00 | NUR ---
AUTO BODY WORKER: is aware re previous [facility] IV order
--- NOTE | 2019-11-10 12:00 | NUR ---
BEAD INSPECTOR: O2sat. 90-91%, no SOB, SR, BP WNL, pt is needy, got everything(AM care, feeding help, reposition, comfort care, snack, for care, detailed explanation re POC, meds, risks to be desaturated, included using pain meds, Ativan
--- NOTE | 2019-11-10 12:30 | NUR ---
HOGSHEAD BUILDER: no Sz activity, O2sat. 91%, SR, SBP over 100, got PM, skin, bedbath care
--- NOTE | 2019-11-10 13:00 | NUR ---
SPECIAL POLICE OFFICER: ordered nocturnal Bipap I/E 13/08, R12, ok transfer to [facility], notified RT, CN. Pt is with confused, uncooperative episodes, removed O2n/c, got explanations again re Dx, POC, meds, orders, risk factors
--- NOTE | 2019-11-10 13:45 | NUR ---
ORTHOTIC PRACTITIONER: pt.said feel anxiety, anxious, restless, got Klonopin
--- NOTE | 2019-11-10 14:37 | NUR ---
CITY EDITOR: SW is in room to see pt.
--- NOTE | 2019-11-10 17:06 | NUR ---
MATERIAL HANDLER FLOORPERSON: O2sat 91-94% on 6L n/c, no SOB, no c/o now, SR, SBP is over 100 below 150, no pain now, all PM/skin/bedbath care done, pt is cooperative now, oriented for POC again, got dinner
--- NOTE | 2019-11-10 18:15 | NUR ---
SLEDGER: pt.is transferred to [facility], full report is given to SILVIA Wells, included nocturnal Bipap order, fall risk, meds, K+ replacement done orders
--- NOTE | 2019-11-10 18:30 | NUR ---
RN CASPERIVING NOTES PATIENT RECEIVED FROM ICU IN STABLE CONDITION. PATIENT IS AOX 2, CONFUSED OCCASIONALLY. NO ACUTE SIGN OF RESPIRATORY DISTRESS NOTED. ON 6L OXYGEN VIA NC, TOLERATING WELL. PATIENT BROUGHT IN WITH A MONROY CATHETER, INTACT AND DRAINING YELLOW URINE. RIGHT UPPER MIDLINE INTACT, FLUSHED WELL. NO S/S OF INFECTION NOTED. RUNNING TKO. WILL CONTINUE CARE AND ENDORSE TO UTILIZATION MANAGEMENT MANAGER NURSE.
--- NOTE | 2019-11-10 19:00 | NUR ---
RN CLOSING NOTES PATIENT IN BED, AWAKE, AO X2. REQUESTING SLEEPING MEDICATION. NO ACUTE DISTRESS IS NOTED AT THIS TIME. PATIENT IS IN STABLE CONDITION, NO RESPIRATORY DISTRESS. TOLERATING O2 SETTING WELL. SATURATING WELL. IV REMAINED INTACT AND FLUSHED WELL. SAFETY WAS MAINTAINED. CALL LIGHT WITHIN REACH. ENDORSED TO CITY COMPTROLLER NURSE TO CONTINUE CARE.
--- NOTE | 2019-11-10 19:30 | NUR ---
RN OPENING NOTES: PATIENT IN BED, AWAKE, AND VERBALLY RESPONSIVE. NO RESPIRATORY DISTRESS. HOB ELEVATED. NO S/S OF PAIN OR FACIAL GRIMACING. MARIO MIDLINE INTACT, PATENT, AND FLUSHING WELL. SAFETY PRECAUTIONS IMPLEMENTED. BED LOCKED, ALARM ON, AND IN LOWEST POSITION. CALL LIGHT PLACED WITHIN REACHED. WILL CONT. TO MONITOR.
[2019-11-10] MEDS: SERTRALINE HCL 50 MG TABLET PO SCH (21:58)
[2019-11-10] MEDS: LEVOFLOXACIN (250MG) 250 MG TABLET GT SCH (22:02)
[2019-11-11] VITALS: BP 120/73
[2019-11-11] MEDS: ALBUTEROL HALF STRENGTH 1.25 MG/3 ML VIAL.NEB NEB SCH ×4 (01:04→21:00)
[2019-11-11] MEDS: IPRATROPIUM NEB FS 0.5 MG/2.5 ML AMPUL.NEB NEB SCH ×4 (01:04→21:00)
[2019-11-11 04:00] VITALS: BP 121/70
--- NOTE | 2019-11-11 07:00 | NUR ---
RN INITIAL NOTE PATIENT IN BED, ASLEEP BUT EASILY AROUSABLE. ON 5L NC, SATING WELL AT 90%. ON TELE MONITOR, SR/SB. HAS A RIGHT UA MIDLINE, SL. NO COMPLAINS OF ANY PAIN NOR SOB AT THIS TIME. BED LOCKED AND IN LOWEST POSITION. CALL LIGHT WITHIN REACH. WILL CONTINUE TO MONITOR
--- NOTE | 2019-11-11 07:05 | NUR ---
RN CLOSING NOTES: PATIENT IN BED, AWAKE, AND VERBALLY RESPONSIVE. NO SOB. HOB ELEVATED. NO S/S OF PAIN OR FACIAL GRIMACING. MARIO MIDLINE INTACT, PATENT, AND FLUSHING WELL. SAFETY PRECAUTIONS IMPLEMENTED. BED LOCKED, ALARM ON, AND IN LOWEST POSITION. ENDORSED TO AM SHIFT NURSE FOR CONTINUITY OF CARE.
[2019-11-11 08:00] VITALS: BP 133/72
[2019-11-11] MEDS: POTASSIUM CHLORIDE 20 MEQ TAB.PRT.SR PO SCH ×2 (08:24→16:30)
[2019-11-11] MEDS: HYDROCORTISONE SOD SUCCINATE 100 MG/2 ML VIAL IV SCH ×2 (08:24→16:29)
[2019-11-11] MEDS: OXYBUTYNIN CHLORIDE 5 MG TABLET PO SCH ×2 (08:24→16:30)
[2019-11-11] MEDS: PANTOPRAZOLE 40 MG VIAL IV SCH (08:24)
[2019-11-11] MEDS: Z GUARD REMEDY 2 OZ OINT TP SCH (08:25)
[2019-11-11] MEDS: CITALOPRAM HYDROBROMIDE 20 MG TABLET PO SCH (08:25)
[2019-11-11] MEDS: ENOXAPARIN SODIUM 40 MG/0.4 ML DISP.SYRIN SQ SCH (08:27)
[2019-11-11] MEDS: ACETYLCYSTEINE 10% SOLN 400 MG/4 ML VIAL NEB SCH ×2 (08:28→15:47)
--- NOTE | 2019-11-11 09:00 | NUR ---
RN NOTE DR LOWE AT BEDSIDE, PATIENT WAS ASLEEP BUT EASILY AROUSABLE. NO COMPLAINS OF ANY DISTRESS. NNO PER MD
--- NOTE | 2019-11-11 09:29 | NUR ---
RN NOTE DR LEVY AT BEDSIDE, AWARE THAT PATIENT USED BIPAP LAST NIGHT AND WAS SATING 94% LAST TIME WE CHECKED. NNO
[2019-11-11] MEDS: MAGNESIUM HYDROXIDE 30 ML UDC PO PRN (11:27)
[2019-11-11 12:00] VITALS: BP 126/68
[2019-11-11 12:42] LABS: BASOPHILS % (AUTO) 0.3 % (0.0-2.0); EOSINOPHILS % (AUTO) 0.8 % (0.0-6.0); HEMATOCRIT 41 % (33-45); HEMOGLOBIN 13.7 g/dL (11.5-14.8); LYMPHOCYTES # (AUTO) 0.9 /CMM (0.8-4.8); LYMPHOCYTES % (AUTO) 12.4 % (20.0-44.0); MEAN CORPUSCULAR HGB CONC 34 g/dl (31.0-36.0); MEAN CORPUSCULAR VOLUME 93 fL (82-100); MONOCYTES # (AUTO) 0.3 /CMM (0.1-1.30); MONOCYTES % (AUTO) 4.7 % (2.0-12.0); NEUTROPHILS # (AUTO) 6.1 /CMM (1.8-8.9); NEUTROPHILS % (AUTO) 81.8 % (43.0-81.0); PLATELET COUNT (AUTO) 238 /CMM (150-450); RED BLOOD CELL COUNT(AUTO) 4.42 MIL/uL (4.0-5.2); WHITE BLOOD COUNT (AUTO) 7.5 K/uL (4.3-11.0)
[2019-11-11 13:01] LABS: CALCIUM, SERUM 9.3 mg/dL (8.5-10.1); CARBON DIOXIDE 31 mmol/L (21-32); CHLORIDE 103 mmol/L (98-107); CREATININE 0.4 mg/dL (0.6-1.3); GLUCOSE 143 mg/dL (74-106); MAGNESIUM 1.8 mg/dL (1.8-2.4); PHOSPHORUS 1.7 mg/dL (2.5-4.9); POTASSIUM 3.8 mmol/L (3.5-5.1); SODIUM SERUM 139 mmol/L (136-145); UREA NITROGEN, BLOOD 11 mg/dL (7-18)
[2019-11-11] MEDS ORDERED: K PHOS NEUTRAL 250 MG TABLET PO ONE (13:30)
[2019-11-11 16:00] VITALS: BP 130/76
--- NOTE | 2019-11-11 16:08 | NUR ---
RN NOTE PATIENT COMPLAINING OF BURNING IN HER PERINEAL AREA WHERE THE MONROY CATHETER IS. MD MADE AWARE. PER , OK TO REMOVE MONROY. WILL REMOVE MONROY
--- NOTE | 2019-11-11 16:46 | NUR ---
RN NOTE REMOVED PATIENT'S MONROY. WILL MONITOR FOR URINE OUTPUT, PATIENT ON DIAPER
--- NOTE | 2019-11-11 16:48 | NUR ---
RN NOTE PATIENT STATES THAT SHE HAS SOME OF HER UTILITY BILLS IN HER BELONGINGS. FOUND MULTIPLE PAPER BILLS WITH ADDRESS UNDER HER NAME: [id number] [place] [id number]
[2019-11-11] MEDS: clonazePAM 1 MG TABLET PO PRN (17:08)
--- NOTE | 2019-11-11 18:57 | NUR ---
RN CLOSING NOTE PATIENT IN BED, AWAKE AND ALERTX4. CONFUSED AT TIMES. MEDS GIVEN. REPLACEMENT GIVEN. ALL NEEDS MET. REPOSITIONED PER PROTOCOL. BED LOCKED AND IN LOWEST POSITION. CALL LIGHT WITHIN REACH. WILL ENDORSE TO NOC SHIFT FOR JOANN
--- NOTE | 2019-11-11 19:45 | NUR ---
TELE DAGOBERTO RN NOTES RECEIVED ON BED A/O X3,WITH EPISODE OF CONFUSION,O2 IN USED AT 3LITERS TO KEEP O2 SAT ABOVE 90%.WITH RIGHT UPPER ARM MIDLINE FOR MEDS,INTACT AND PATENT.SPECIALTY MATTRESS REMOVED,ABLE TO MOVE AROUND ON BEDFALL PRECAUTION OBSERVED,BED ALARM TRIGGERED.CALL LIGHT IN REACH,NEEDS ANTICIPATED.
[2019-11-11 20:00] VITALS: BP 122/74
--- NOTE | 2019-11-11 22:00 | NUR ---
TELE DAGOBERTO RN NOTES HAD BOWEL MOVEMENT,SOFT AND PASTY,CLEANED AND KEPT DRY
[2019-11-11] MEDS: SERTRALINE HCL 50 MG TABLET PO SCH (22:27)
[2019-11-11] MEDS: LEVOFLOXACIN (250MG) 250 MG TABLET GT SCH (22:27)
--- NOTE | 2019-11-11 22:30 | NUR ---
FLAQUITA ARENAS RN NOTES RT AT BEDSIDE TO SET BIPAP,PATIENT REFUSED TO GAVE IT ON TONIGHT.O2 SAT 92% ON O2 2L/NC Addendum: 11/12/19 at 0227 by FRANCISCO EWING RN REFUSED TO HAVE IT TONIGHT
[2019-11-12] VITALS: BP 100/68
[2019-11-12] MEDS: ACETYLCYSTEINE 10% SOLN 400 MG/4 ML VIAL NEB SCH ×4 (00:06→23:19)
--- NOTE | 2019-11-12 02:00 | NUR ---
TELE DAGOBERTO RN NOTES REFUSED TO BE REPOSITION THIS TIME.
[2019-11-12] MEDS: IPRATROPIUM NEB FS 0.5 MG/2.5 ML AMPUL.NEB NEB SCH ×4 (02:34→19:29)
[2019-11-12] MEDS: ALBUTEROL HALF STRENGTH 1.25 MG/3 ML VIAL.NEB NEB SCH ×4 (02:34→19:28)
[2019-11-12 04:00] VITALS: BP 128/64
--- NOTE | 2019-11-12 06:11 | NUR ---
TELE DAGOBERTO RN NOTES ASLEEP MOST OF THE NIGHT BUT AROUSABLE.REFUSED BIPAP AND REPOSITIONING.HAD BOWEL MOVEMENT TWICE.MOM EFFECTIVE.NO FALL, NO INJURY.CALL LIGHT IN REACH,NEEDS ATTENDED.IN NO ACUTE DISTRESS.WILL ENDORSE TO [facility]GA FOR KMAILLE. Addendum: 11/12/19 at 0640 by FRANCISCO EWING RN will endorse to brit vega for kamille
[2019-11-12 08:00] VITALS: BP 113/68
--- NOTE | 2019-11-12 08:00 | NUR ---
DAGOBERTO RN NOTES Received patient in bed sleeping but easily arousable. Patient is on 3L NC 02 with 91%02. Patient is A&O x2. On tele monitor SB HR 54. Patient has MARIO midline. Dressing intact, flushes well. Bed in lowest and locked position for safety measure. Patient refuses food but will drink PO fluids. Call light w/in reach. Will continue to monitor.
[2019-11-12] MEDS: PANTOPRAZOLE 40 MG VIAL IV SCH (08:45)
[2019-11-12] MEDS: CITALOPRAM HYDROBROMIDE 20 MG TABLET PO SCH (08:46)
[2019-11-12] MEDS: HYDROCORTISONE SOD SUCCINATE 100 MG/2 ML VIAL IV SCH ×2 (08:46→16:30)
[2019-11-12] MEDS: OXYBUTYNIN CHLORIDE 5 MG TABLET PO SCH ×2 (08:47→16:28)
[2019-11-12] MEDS: POTASSIUM CHLORIDE 20 MEQ TAB.PRT.SR PO SCH ×2 (08:47→16:28)
[2019-11-12] MEDS: ENOXAPARIN SODIUM 40 MG/0.4 ML DISP.SYRIN SQ SCH (08:49)
[2019-11-12] MEDS: clonazePAM 1 MG TABLET PO PRN ×2 (08:53→18:27)
[2019-11-12] MEDS: Z GUARD REMEDY 2 OZ OINT TP SCH (08:58)
--- NOTE | 2019-11-12 09:20 | NUR ---
DAGOBERTO RN NOTES Patient complained of anxiety and hopelessness. Patient states "why won't they let me ". Klonopin given PRN anxiety. Dr. Welch at bedside aware of patient condition. Psych eval to be ordered. Called [facility]ych unit for psych consult.
[2019-11-12] MEDS ORDERED: KEY,NONCONTROL,TO KEEP IN PYXI 1 EA MC ONE (09:45)
[2019-11-12 10:04] LABS: CALCIUM, SERUM 9.1 mg/dL (8.5-10.1); CARBON DIOXIDE 30 mmol/L (21-32); CHLORIDE 103 mmol/L (98-107); CREATININE 0.4 mg/dL (0.6-1.3); GLUCOSE 102 mg/dL (74-106); MAGNESIUM 1.8 mg/dL (1.8-2.4); PHOSPHORUS 2.8 mg/dL (2.5-4.9); POTASSIUM 3.7 mmol/L (3.5-5.1); SODIUM SERUM 139 mmol/L (136-145); UREA NITROGEN, BLOOD 10 mg/dL (7-18)
[2019-11-12 10:05] LABS: BASOPHILS % (AUTO) 0.3 % (0.0-2.0); EOSINOPHILS % (AUTO) 1.8 % (0.0-6.0); HEMATOCRIT 40 % (33-45); HEMOGLOBIN 13.5 g/dL (11.5-14.8); LYMPHOCYTES # (AUTO) 1.7 /CMM (0.8-4.8); LYMPHOCYTES % (AUTO) 22.9 % (20.0-44.0); MEAN CORPUSCULAR HGB CONC 34 g/dl (31.0-36.0); MEAN CORPUSCULAR VOLUME 92 fL (82-100); MONOCYTES # (AUTO) 0.5 /CMM (0.1-1.30); MONOCYTES % (AUTO) 6.4 % (2.0-12.0); NEUTROPHILS # (AUTO) 5.1 /CMM (1.8-8.9); NEUTROPHILS % (AUTO) 68.6 % (43.0-81.0); PLATELET COUNT (AUTO) 221 /CMM (150-450); RED BLOOD CELL COUNT(AUTO) 4.37 MIL/uL (4.0-5.2); WHITE BLOOD COUNT (AUTO) 7.4 K/uL (4.3-11.0)
[2019-11-12] MEDS: ACETAMINOPHEN 325 MG TABLET PO PRN (11:27)
[2019-11-12 12:00] VITALS: BP 117/76
--- NOTE | 2019-11-12 12:17 | NUR ---
faby rn note pr dr cristhian jackson spoke with yessica welfare case worker about Donita jacksno stated that will f\u
--- NOTE | 2019-11-12 13:48 | NUR ---
DAGOBERTO RN NOTES SEEN BY DR. PIZANO PSYCH EVAL DONE. NOTIFIED BY PATIENT EARLIER REGARDING FEELINGS OF HOPELESSNESS AND VERBALIZED DESIRE TO . KLONOPIN 2MG GIVEN PO WITH ADEQUATE RELIEF. AWARE, AND STATED SHE WILL RECHECK HER PSYCH MEDS. NURSING WILL CONTINUE TO MONITOR.
--- NOTE | 2019-11-12 14:52 | NUR ---
DAGOBERTO RN NOTES PATIENT BECAME AGITATED AND AGGRESSIVE TOWARD NURSING STAFF. PATIENT WAS SEEN GRIPPING SIDE RAILS AND THREW TELEPHONE ON THE FLOOR OF PT ROOM. PSYCHIATRIST HARINDER CALLED AND NEW ORDERS RECIEVED. WILL CONTINUE TO MONITOR. VS CHECKED WITH O2 SAT95% BP 104/62 RR20. WILL MEDICATE PRN Addendum: 11/12/19 at 1510 by NISA PYLE RN SEROQUEL 25 MG PO WAS GIVEN ORDERED .WILL F\U
[2019-11-12] MEDS ORDERED: QUETIAPINE FUMARATE 25 MG TABLET PO ONE (15:00)
[2019-11-12 16:00] VITALS: BP 118/71
[2019-11-12] MEDS: IBUPROFEN 600 MG TABLET PO PRN (16:29)
--- NOTE | 2019-11-12 16:41 | NUR ---
DAGOBERTO RN NOTE MOTRIN PO 600 MG GIVEN ORDERED
--- NOTE | 2019-11-12 16:44 | NUR ---
DAGOBERTO RN NOTE RT AT BEDSIDE, PATIENT STRONGLY REFUSED BREATHING TX. PURPOSE AND BENEFIT EXPLAINED TO PATIENT. WILL CONTINUE TO ENCOURAGE. WILL CONTINUE TO MONITOR FOR S/S OF RESPIRATORY DISTRESS.
[2019-11-12] MEDS: ENSURE ENLIVE CHOC 237 ML CAN PO SCH (17:44)
--- NOTE | 2019-11-12 17:53 | NUR ---
CHANDELIER MAKER NOTE MADE A MADE BM, KEEP CLEAN DRY , ALL NEEDS ATTENDED , CALL LIGHT WITHIN REACH , HAVING DINNER
--- NOTE | 2019-11-12 18:31 | NUR ---
GLOVE PRESSER NOTE PATIENT COMPLAINED OF ANXIETY AND VISIBLY AGITATED. PATIENT WAS YELLING AT STAFF. MEDICATED WITH PRN 1MG CLONAZEPAM. WILL CONTINUE TO MONITOR FOR S/S OF RESPIRATORY DISTRESS. VS: 105/58 ON RA RR16. HR-88.
--- NOTE | 2019-11-12 19:45 | NUR ---
DELIVERY TECH OPENING NOTES RECEIVED PATIENT IN BED SLEEPING BUT EASILY AROUSABLE. PATIENT IS ON 3L O2 BUT REFUSES HER NS, O2 IS 91/92 IN ROOM AIR, WILL CONTINUE TO MONITOR. PATIENT IS A/O X2. ON TELE MONITOR WITH HR OF HIGH 50s AND SB. PATIENT HAS MARIO MIDLINE. DRESSING CHANGED DURING DAY SHIFT , PATENT AND FLUSHES WELL. NO S/S OF INFILTRATION NOTED. BED IS IN LOCKED/LOW POSITION. CALL LIGHT WITHIN REACH. WILL CONTINUE TO MONITOR.
[2019-11-12 20:00] VITALS: BP 109/65
[2019-11-12] MEDS: LEVOFLOXACIN (250MG) 250 MG TABLET GT SCH ×2 (23:05→23:20)
[2019-11-13] VITALS: BP 125/62
[2019-11-13] MEDS: IPRATROPIUM NEB FS 0.5 MG/2.5 ML AMPUL.NEB NEB SCH ×4 (00:24→19:44)
[2019-11-13] MEDS: ALBUTEROL HALF STRENGTH 1.25 MG/3 ML VIAL.NEB NEB SCH ×4 (00:25→19:44)
[2019-11-13 04:00] VITALS: BP 130/69
[2019-11-13 07:04] LABS: BASOPHILS # (AUTO) 0.1 /CMM (0.0-0.2); BASOPHILS % (AUTO) 1.1 % (0.0-2.0); EOSINOPHILS % (AUTO) 1.9 % (0.0-6.0); HEMATOCRIT 39 % (33-45); HEMOGLOBIN 12.9 g/dL (11.5-14.8); LYMPHOCYTES # (AUTO) 2.1 /CMM (0.8-4.8); LYMPHOCYTES % (AUTO) 35.2 % (20.0-44.0); MEAN CORPUSCULAR HGB CONC 33 g/dl (31.0-36.0); MEAN CORPUSCULAR VOLUME 93 fL (82-100); MONOCYTES # (AUTO) 0.5 /CMM (0.1-1.30); MONOCYTES % (AUTO) 7.6 % (2.0-12.0); NEUTROPHILS # (AUTO) 3.2 /CMM (1.8-8.9); NEUTROPHILS % (AUTO) 54.2 % (43.0-81.0); PLATELET COUNT (AUTO) 206 /CMM (150-450); RED BLOOD CELL COUNT(AUTO) 4.16 MIL/uL (4.0-5.2)
--- NOTE | 2019-11-13 07:20 | NUR ---
DRUM PULLER CLOSING NOTES PATIENT IN BED SLEEPING. PATIENT IS ON 3L O2 BUT REFUSES HER NS, O2 IS 91/92 IN ROOM AIR, WILL CONTINUE TO MONITOR. PATIENT IS A/O X2. ON TELE MONITOR WITH HR OF 60s AND SB. PATIENT HAS MARIO MIDLINE , PATENT AND FLUSHES WELL. NO S/S OF INFILTRATION NOTED. BED IS IN LOCKED/LOW POSITION. CALL LIGHT WITHIN REACH. WILL ENDORSE THE PATIENT TO AM RN FOR JOANN.
[2019-11-13 07:22] LABS: CALCIUM, SERUM 9.4 mg/dL (8.5-10.1); CARBON DIOXIDE 30 mmol/L (21-32); CHLORIDE 104 mmol/L (98-107); CREATININE 0.4 mg/dL (0.6-1.3); GLUCOSE 100 mg/dL (74-106); PHOSPHORUS 3.6 mg/dL (2.5-4.9); POTASSIUM 4.3 mmol/L (3.5-5.1); SODIUM SERUM 137 mmol/L (136-145); UREA NITROGEN, BLOOD 13 mg/dL (7-18)
[2019-11-13] MEDS: ACETYLCYSTEINE 10% SOLN 400 MG/4 ML VIAL NEB SCH ×3 (07:31→23:30)
[2019-11-13 08:00] VITALS: BP 132/73
[2019-11-13] MEDS: PANTOPRAZOLE 40 MG VIAL IV SCH (08:00)
--- NOTE | 2019-11-13 08:00 | NUR ---
CARPENTRY PROFESSIONAL NOTES PATIENT IN BED A/OX3. SHE COMPLAINS OF HEADACHE AND REQUESTING TYLENOL. ON DIAPER WITH MARIO MIDLINE. BED AT THE LOWEST POSITION LOCKED CALL LIGHT WITHIN REACH. WILL CONTINUE TO MONITOR PATIENT .
--- NOTE | 2019-11-13 08:07 | NUR ---
FOOD PRODUCTION MANAGER NOTES PATIENT REQUESTED TYLENOL AND SHE REFUSED WHEN BROUGHT TO PATIENT. 2 TABLETS WASTED AT WASTE BIN.
--- NOTE | 2019-11-13 08:15 | NUR ---
WOUND CARE CONSULT/FOLLOW UP: PT SEEN FOR BILATERAL OUTER BUTTOCK LESIONS, UNKNOWN ETIOLOGY, WHICH ARE NO LONGER RAISED. NO DRAINAGE NOTED. OPEN TO AIR AT THIS TIME. DIAPER REMOVED PER PT REQUEST. DISCUSSED WITH RN AND BAND MANAGER. RN TO DISCUSS WITH MD TODAY. PT ABLE TO ASSIST WITH TURNING AND REPOSITIONING IN BED. WILL SEE PRN.
[2019-11-13] MEDS: clonazePAM 1 MG TABLET PO PRN (08:24)
[2019-11-13] MEDS: HYDROCORTISONE SOD SUCCINATE 100 MG/2 ML VIAL IV SCH ×2 (08:28→17:51)
[2019-11-13] MEDS: ENSURE ENLIVE CHOC 237 ML CAN PO SCH ×2 (08:28→17:55)
[2019-11-13] MEDS: POTASSIUM CHLORIDE 20 MEQ TAB.PRT.SR PO SCH ×2 (08:29→17:53)
[2019-11-13] MEDS: OXYBUTYNIN CHLORIDE 5 MG TABLET PO SCH ×2 (08:29→17:54)
[2019-11-13] MEDS: ENOXAPARIN SODIUM 40 MG/0.4 ML DISP.SYRIN SQ SCH (08:30)
[2019-11-13] MEDS: Z GUARD REMEDY 2 OZ OINT TP SCH (08:33)
--- NOTE | 2019-11-13 10:30 | NUR ---
BRICKLAYER TENDER NOTES INFORMED DR LOWE ABOUT THE OPEN ULCERS ON GLUTEAL PART. DR BROOKS.
[2019-11-13 12:00] VITALS: BP 148/56
[2019-11-13] MEDS: QUETIAPINE FUMARATE 25 MG TABLET PO PRN ×2 (12:31→18:43)
[2019-11-13] MEDS ORDERED: POTA20TA83 PO (13:15)
[2019-11-13] MEDS ORDERED: PRED50TA PO (13:15)
[2019-11-13 16:00] VITALS: BP_SYST 148; BP_SYST 99; BP_DIAS 56; BP_DIAS 57
--- NOTE | 2019-11-13 20:13 | NUR ---
WILDLAND FIRE FIGHTER SPECIALIST NOTES CLOSING NOTES PATIENT IN BED A/OX 4 , FORGETFUL. NO SOB OR DISCOMFORT NOTED AT THIS TIME. PATIENT HAS A DISCHARGE ORDER. CALLED CASE MANAGEMENT AND THE INFORMED THAT THEY ARE LOOKING FOR A BED AT [facility]. ALL NEEDS ATTENDED. MEDICATION ADMINISTRATED. PATIENT REFUSED MORNING MEDS BUT AGREED TO TAKE 1700 MEDS. CALL LIGHT WITHIN REACH, BED AT THE LOWEST POSITION LOCKED.ENDORSED TO CLINIC OFFICE ASSISTANT NURSE FOR JOANN.
[2019-11-13] MEDS: IBUPROFEN 600 MG TABLET PO PRN (20:21)
--- NOTE | 2019-11-13 20:26 | NUR ---
TELE/RN C/O GENERALIZED BACK 08/03, MOTRIN PO WAS GIVEN ORDERED. IF NOT NOT RELIEVED, WILL CALL MD FOR A STRONGER PAIN MED. WILL MONITOR.
--- NOTE | 2019-11-13 21:38 | NUR ---
MS/RN PATIENT IS SLEEPING AT THIS TIME,, COMFORTABLE, NO SIGNS OF DISTRESS NOTED, CALL LIGHT IN REACH. WILL CONTINUE TO MONITOR.
[2019-11-13 22:00] VITALS: BP 90/52
[2019-11-14] VITALS: BP 104/69
[2019-11-14] MEDS: IPRATROPIUM NEB FS 0.5 MG/2.5 ML AMPUL.NEB NEB SCH ×4 (00:27→21:11)
[2019-11-14] MEDS: ALBUTEROL HALF STRENGTH 1.25 MG/3 ML VIAL.NEB NEB SCH ×4 (00:27→21:11)
--- NOTE | 2019-11-14 01:13 | NUR ---
TELE1/RN PER RT PATIENT REFUSED BIPAP DESPITE EXPLANATION OF ITS IMPORTANCE.
--- NOTE | 2019-11-14 05:53 | NUR ---
TELE1/RN PATIENT IS AWAKE, BUT STILL SLEEPY, MORNING CARE DONE TOTAL LINEN CHANGE RENDERED, BED BATH DONE, REPOSITIONED TO COMFORT, ALL NEEDS ATTENDED AT THIS TIME. WILL CONTINUE TO MONITOR.
--- NOTE | 2019-11-14 07:20 | NUR ---
RN OPENING NOTES PT IS ASLEEP AT PRESENT TIME. PT HAS EQUAL CHEST RISE AND FALL. BED IS LOCKED AND IN LOWEST POSITION WITH CALL LIGHT IN REACH. REPORT RECEIVED FROM RADIO PERSONALITY RN WILL CONTINUE TO MONITOR.
[2019-11-14 07:24] LABS: BASOPHILS % (AUTO) 0.5 % (0.0-2.0); EOSINOPHILS % (AUTO) 2.3 % (0.0-6.0); HEMATOCRIT 39 % (33-45); LYMPHOCYTES # (AUTO) 1.6 /CMM (0.8-4.8); LYMPHOCYTES % (AUTO) 30.7 % (20.0-44.0); MEAN CORPUSCULAR HGB CONC 33 g/dl (31.0-36.0); MEAN CORPUSCULAR VOLUME 93 fL (82-100); MONOCYTES # (AUTO) 0.3 /CMM (0.1-1.30); NEUTROPHILS # (AUTO) 3.1 /CMM (1.8-8.9); NEUTROPHILS % (AUTO) 60.5 % (43.0-81.0); PLATELET COUNT (AUTO) 191 /CMM (150-450); RED BLOOD CELL COUNT(AUTO) 4.24 MIL/uL (4.0-5.2); WHITE BLOOD COUNT (AUTO) 5.2 K/uL (4.3-11.0)
[2019-11-14] MEDS: ACETYLCYSTEINE 10% SOLN 400 MG/4 ML VIAL NEB SCH ×3 (07:25→23:30)
[2019-11-14 08:00] VITALS: BP 123/68
[2019-11-14 08:19] LABS: THYROID STIMULATING HORMONE 3.502 uIU/mL (0.358-3.74)
[2019-11-14 08:30] LABS: ALBUMIN 2.3 g/dL (3.4-5.0); BILIRUBIN,TOTAL 0.4 mg/dL (0.2-1.0); CALCIUM, SERUM 9.3 mg/dL (8.5-10.1); CREATININE 0.6 mg/dL (0.6-1.3); PHOSPHORUS 3.7 mg/dL (2.5-4.9); POTASSIUM 4.1 mmol/L (3.5-5.1); TOTAL PROTEIN, SERUM 5.5 g/dL (6.4-8.2)
[2019-11-14] MEDS: OXYBUTYNIN CHLORIDE 5 MG TABLET PO SCH ×2 (08:30→16:46)
[2019-11-14] MEDS: QUETIAPINE FUMARATE 25 MG TABLET PO PRN ×3 (08:30→20:55)
[2019-11-14] MEDS: POTASSIUM CHLORIDE 20 MEQ TAB.PRT.SR PO SCH ×2 (08:30→16:46)
[2019-11-14] MEDS: ENOXAPARIN SODIUM 40 MG/0.4 ML DISP.SYRIN SQ SCH (08:31)
[2019-11-14] MEDS: ENSURE ENLIVE CHOC 237 ML CAN PO SCH ×2 (08:32→16:47)
[2019-11-14] MEDS: PANTOPRAZOLE 40 MG VIAL IV SCH (08:32)
[2019-11-14] MEDS: HYDROCORTISONE SOD SUCCINATE 100 MG/2 ML VIAL IV SCH ×2 (08:32→16:46)
[2019-11-14] MEDS: Z GUARD REMEDY 2 OZ OINT TP SCH (08:33)
[2019-11-14] MEDS: clonazePAM 0.5 MG TABLET PO PRN ×3 (09:17→20:55)
[2019-11-14] MEDS: IBUPROFEN 600 MG TABLET PO PRN ×2 (09:17→20:55)
--- NOTE | 2019-11-14 11:03 | NUR ---
PT FREQUENTLY REMOVING NC. PT STATES IT IS BUGGING HER. EDUCATED PT ON THE IMPORTANCE OF KEEPING THE NC ON.
[2019-11-14] MEDS: ACETAMINOPHEN 325 MG TABLET PO PRN (12:42)
[2019-11-14] MEDS: NICOTINE PATCH (21MG) 21 MG PATCH.TD24 TD SCH (12:50)
--- NOTE | 2019-11-14 13:00 | NUR ---
PT BECOMING MORE AGITATED AND THREW HER LUNCH ON THE FLOOR STATING SHE NEEDS SOMEONE TO FEED IT TO HER, AND BEGAN TO CRY STATING HER LEFT HER. PT STOPPED CRYING AND BEGAN TO ASK FOR MORE FOOD.
[2019-11-14 16:00] VITALS: BP 139/84
--- NOTE | 2019-11-14 19:34 | NUR ---
RN CLOSING NOTES PT IS IN BED DENIES ANY SOB OR PAIN AT PRESENT MOMENT. PT IS INCONTINENT AND HAS A DIAPER. PT WAS AGITATED AT TIMES AND OTHER TIMES CRYING. PT EXPRESSED CONCERN FOR WHICH REHAB FACILITY SHE WOULD BE GOING TO. PT IS IN BED IN SEMI PEREZ POSITION WITH CALL LIGHT IN REACH. REPORT GIVEN TO INSURANCE CLAIMS EXAMINER RN FOR JOANN.
[2019-11-14 20:00] VITALS: BP 105/71
[2019-11-14] MEDS ORDERED: GABAPENTIN 100 MG CAPSULE PO SCH (22:00)
--- NOTE | 2019-11-14 22:52 | NUR ---
MS / RN NOTE PAGED ON CAR DR. ADILENE SCHWARZ, ABOUT PATIENT REQUESTING SLEEPING PILL. DR ORDERED AMBIEN 5MG HS. VIA TEXT ORDER PLACED.
[2019-11-14] MEDS ORDERED: ZOLPIDEM TARTRATE 5 MG TABLET PO PRN (23:00)
[2019-11-14] MEDS: LEVOFLOXACIN (250MG) 250 MG TABLET GT SCH (23:13)
[2019-11-15] MEDS: ACETYLCYSTEINE 10% SOLN 400 MG/4 ML VIAL NEB SCH ×2 (00:43→07:48)
[2019-11-15] MEDS: ALBUTEROL HALF STRENGTH 1.25 MG/3 ML VIAL.NEB NEB SCH ×2 (01:27→07:48)
[2019-11-15] MEDS: IPRATROPIUM NEB FS 0.5 MG/2.5 ML AMPUL.NEB NEB SCH ×2 (01:27→07:48)
[2019-11-15] MEDS: ACETAMINOPHEN 325 MG TABLET PO PRN (03:06)
[2019-11-15] MEDS: clonazePAM 0.5 MG TABLET PO PRN ×2 (03:15→12:00)
[2019-11-15] MEDS: QUETIAPINE FUMARATE 25 MG TABLET PO PRN (03:16)
[2019-11-15 04:00] VITALS: BP 105/71
--- NOTE | 2019-11-15 08:10 | NUR ---
MS RN CLOSING PATIENT IN BED WITH NO SIGN OF ANY DISTRESS. PATIENT ON 3L OF 02 WITH NO SIGN OF SOB. IV ACCESS ON MARIO MIDLINE PATENT AND FLUSHING. ALL SAFETY PRECAUTIONS APPLIED. ENDORSED PATIENT TO MORNING SHIFT NURSE FOR JOANN.
[2019-11-15] MEDS: POTASSIUM CHLORIDE 20 MEQ TAB.PRT.SR PO SCH ×2 (08:36→10:19)
[2019-11-15] MEDS: PANTOPRAZOLE 40 MG VIAL IV SCH (08:36)
[2019-11-15] MEDS: ENSURE ENLIVE CHOC 237 ML CAN PO SCH (08:37)
--- NOTE | 2019-11-15 08:40 | NUR ---
ms rn received on bed, awake,alert,oriented x4,not in any form of distress, respirations even and unlabored,no sob noted, lungs are diminished,abdomen soft,positive bowel sounds denies pain at this time,all needs attended.
[2019-11-15] MEDS: Z GUARD REMEDY 2 OZ OINT TP SCH (09:00)
[2019-11-15] MEDS ORDERED: predniSONE 10 MG TABLET PO SCH (09:00)
--- NOTE | 2019-11-15 09:50 | NUR ---
ms radha maravilla served,due meds given,tolerated well, will be discharge today at 1 pm per returned case inspector.
[2019-11-15] MEDS: OXYBUTYNIN CHLORIDE 5 MG TABLET PO SCH (10:11)
[2019-11-15] MEDS: NICOTINE PATCH (21MG) 21 MG PATCH.TD24 TD SCH (10:11)
[2019-11-15] MEDS: ENOXAPARIN SODIUM 40 MG/0.4 ML DISP.SYRIN SQ SCH (10:16)
--- NOTE | 2019-11-15 11:00 | NUR ---
ms rn papers done, ready for nut picker
--- NOTE | 2019-11-15 14:00 | NUR ---
ms rn patient discharge to snf, still refusing to take discharge pictures.all needs attended.
== END 2019-11-15 13:24 | DRG 870 ==
LOC: ER 16:39 → TELE 20:15 → ICU 10-28 00:29 → TELE-TD 11-10 18:02 → TELE1 11-12 16:54 → MEDSG1 11-14 01:30
PROVIDERS: ADMIT Internal Medicine; ATTEND Internal Medicine
PROC: 5A1955Z Respiratory Ventilation, Greater than 96 Consecutive Hours (ICD-10-PCS; principal; 2019-10-28)
PROC: 05H533Z Insertion of Infusion Device into Right Subclavian Vein, Percutaneous Approach (ICD-10-PCS; principal; 2019-10-28)
PROC: 0BH17EZ Insertion of Endotracheal Airway into Trachea, Via Natural or Artificial Opening (ICD-10-PCS; principal; 2019-10-28)
DX: A41.9 Sepsis, unspecified organism (principal); J18.9 Pneumonia, unspecified organism; G93.41 Metabolic encephalopathy; J96.21 Acute and chronic respiratory failure with hypoxia; J96.22 Acute and chronic respiratory failure with hypercapnia; J44.1 Chronic obstructive pulmonary disease with (acute) exacerbation; E27.40 Unspecified adrenocortical insufficiency; E87.2 Acidosis; F05 Delirium due to known physiological condition; J98.11 Atelectasis; F41.0 Panic disorder [episodic paroxysmal anxiety]; F17.210 Nicotine dependence, cigarettes, uncomplicated; E03.9 Hypothyroidism, unspecified; E78.5 Hyperlipidemia, unspecified; I25.10 Atherosclerotic heart disease of native coronary artery without angina pectoris; I10 Essential (primary) hypertension; F41.9 Anxiety disorder, unspecified; F20.9 Schizophrenia, unspecified; Z99.3 Dependence on wheelchair; Z79.82 Long term (current) use of aspirin; Z90.710 Acquired absence of both cervix and uterus; M19.90 Unspecified osteoarthritis, unspecified site; E66.9 Obesity, unspecified; Z68.29 Body mass index [BMI] 29.0-29.9, adult; F31.9 Bipolar disorder, unspecified; E87.6 Hypokalemia; F19.90 Other psychoactive substance use, unspecified, uncomplicated; K57.30 Diverticulosis of large intestine without perforation or abscess without bleeding; G62.9 Polyneuropathy, unspecified; W19.XXXA Unspecified fall, initial encounter; Y93.9 Activity, unspecified; Y92.89 Other specified places as the place of occurrence of the external cause
CPT/HCPCS: 31720; 36415; 36600; 71045-TC; 73521; 73560-TC; 73610-TC; 80048-TC; 80053-TC; 80076-TC; 80202-TC; 81000-TC; 82088; 82436-TC; 82533; 82803-TC; 83605-TC; 83735-TC; 83880; 83935-TC; 84100-TC; 84133-TC; 84244; 84300-TC; 84439-TC; 84443-TC; 84478-TC; 84481; 84484-TC; 85025-TC; 85610-TC; 85730-TC; 87040-TC; 87081-TC; 87086-TC; 92526; 92611-TC; 94002-TC; 94003-TC; 94660; 94760-TC; 94799-TC; 97116-TC; 97530-TC; 99082-TC; A4216; A6403; C9113; G0378; J1650; J1720; J1940; J1956; J2060; J2185; J2270; J2405; J2930; J3370; J3475; J3480; J3490; J7030; J7040; J7042; J7050; J7060; Q9967